=== PATIENT | male | born 1960 | race Caucasian/White ===

== ENCOUNTER 2017-07-08 19:02 | Emergency (ER) | payer MEDICAID ==
[~2017-07-08] VITALS: Ht 172.7 cm; Wt 85.0 kg
[~2017-07-08 19:02] MED LIST: [UNRECOGNIZED DRUG - REMARK]
[2017-07-08] MEDS ORDERED: TETanus/Pertussis (Acell)/Diphther VAC/PF (Tdap-Adult) 0.5ml syringe IM ONE (19:55)
[2017-07-08] MEDS ORDERED: LIDOcaine 1.5% w/epinephrine 1:200,000 5ml ampul IJ ONE (19:55)
[2017-07-08] MEDS ORDERED: BACDS PO (20:30)
[2017-07-08] MEDS ORDERED: HYDR-569 PO (20:30)
[2017-07-08 20:39] VITALS: BP 140/80
== END 2017-07-08 20:41 | disposition home or self-care (01) ==
LOC: ER 19:03
DX: L02.31 Cutaneous abscess of buttock (principal); L03.317 Cellulitis of buttock; E78.00 Pure hypercholesterolemia, unspecified; M19.90 Unspecified osteoarthritis, unspecified site; Z79.899 Other long term (current) drug therapy
CPT/HCPCS: 10060; 90471; 90715; 99283; A6255; A6449; J3490

== ENCOUNTER 2017-09-05 17:13 | Emergency (ER) | payer MEDICAID ==
[~2017-09-05] VITALS: Ht 172.7 cm; Wt 83.6 kg
[~2017-09-05 17:13] MED LIST changes: +HYDR-569 PO
[2017-09-05 17:21] VITALS: BP 140/94
[2017-09-05] MEDS ORDERED: CEPH500C5 PO (19:04)
[2017-09-05] MEDS ORDERED: SULF1TAB49 PO (19:04)
[2017-09-05] MEDS ORDERED: ibuprofen tablet 400 MG TABLET PO ONE (19:25)
== END 2017-09-05 19:32 | disposition home or self-care (01) ==
LOC: ER 17:13
DX: L03.317 Cellulitis of buttock (principal); F17.200 Nicotine dependence, unspecified, uncomplicated; I10 Essential (primary) hypertension; I25.10 Atherosclerotic heart disease of native coronary artery without angina pectoris; E78.00 Pure hypercholesterolemia, unspecified; I25.2 Old myocardial infarction; M19.90 Unspecified osteoarthritis, unspecified site; Z98.61 Coronary angioplasty status; Z79.899 Other long term (current) drug therapy
CPT/HCPCS: 99283

== ENCOUNTER 2018-10-22 14:35 | Emergency (ER) | payer MEDICAID ==
[~2018-10-22] VITALS: Ht 172.7 cm; Wt 78.5 kg
[~2018-10-22 14:35] MED LIST changes: +HYDR-4383 PO; -HYDR-569 PO
[2018-10-22 18:03] VITALS: BP 146/85
--- NOTE | 2018-10-22 18:23 | NUR ---
Verbal SBAR report given to MURPHY Hernandez. Report acknowledged and questions answered. Care of the patient transferred.
[2018-10-22] MEDS ORDERED: naproxen 500mg tablet PO ONE (18:45)
[2018-10-22] MEDS ORDERED: NAPR-56 PO (18:46)
[2018-10-22 19:19] LABS: BASOPHILS # (AUTO) 0.1 X10'3 (0-0.2); BASOPHILS % (AUTO) 0.7 % (0-1); EOSINOPHILS # (AUTO) 0.1 X10'3 (0-0.9); EOSINOPHILS % (AUTO) 1.5 % (0-6); HEMATOCRIT 43.8 % (42.0-52.0); HEMOGLOBIN 14.7 g/dl (14.0-17.9); LYMPHOCYTES # (AUTO) 3.1 X10'3 (1.1-4.8); LYMPHOCYTES % (AUTO) 31.9 % (21-51); MEAN CORPUSCULAR HEMOGLOBIN 32.3 PG (27.0-31.0); MEAN CORPUSCULAR HGB CONC 33.6 g/dL (33.0-36.5); MEAN PLATELET VOLUME 8.5 FL (7.4-10.4); MONOCYTES # (AUTO) 0.8 X10'3 (0-0.9); MONOCYTES % (AUTO) 8.7 % (2-12); NEUTROPHILS # (AUTO) 5.5 X10'3 (1.8-7.7); NEUTROPHILS % (AUTO) 57.2 % (42-75); PLATELET COUNT 171 X10'3 (140-440); RED BLOOD COUNT 4.56 X10'6 (4.70-6.10); RED CELL DISTRIBUTION WIDTH 14.2 % (11.5-14.5); WHITE BLOOD COUNT 9.6 X10'3 (4.5-11.0)
[2018-10-22 19:35] LABS: ALANINE AMINOTRANSFERASE 52 U/L (12-78); ALBUMIN 3.5 G/DL (3.4-5.0); ALBUMIN/GLOBULIN RATIO 0.9 (1.1-1.5); ALKALINE PHOSPHATASE 40 IU/L (46-116); ANION GAP 6 (8-16); ASPARTATE AMINO TRANSFERASE 28 U/L (10-37); BILIRUBIN,TOTAL 0.2 MG/DL (0.1-1.0); BLOOD UREA NITROGEN 12 MG/DL (7-18); CALCIUM 8.6 MG/DL (8.5-10.1); CHLORIDE 108 MMOL/L (99-107); CREATININE 1.09 MG/DL (0.60-1.10); GLUCOSE 88 MG/DL (70-104); POTASSIUM 4.5 MMOL/L (3.5-5.1); SODIUM 145 MMOL/L (135-145); TOTAL PROTEIN 7.2 G/DL (6.4-8.2); eGFR 69 ML/MIN
== END 2018-10-22 20:02 | disposition home or self-care (01) ==
LOC: ER 14:36
DX: M25.512 Pain in left shoulder (principal); I25.10 Atherosclerotic heart disease of native coronary artery without angina pectoris; E78.00 Pure hypercholesterolemia, unspecified; I10 Essential (primary) hypertension; I25.2 Old myocardial infarction; M19.90 Unspecified osteoarthritis, unspecified site; Z98.61 Coronary angioplasty status; Z86.69 Personal history of other diseases of the nervous system and sense organs; Z79.899 Other long term (current) drug therapy; W22.8XXA Striking against or struck by other objects, initial encounter; Y93.89 Activity, other specified; Y92.89 Other specified places as the place of occurrence of the external cause; Y99.8 Other external cause status
CPT/HCPCS: 36415; 73030; 80053; 84484; 85025; 85610; 93005; 99284

== ENCOUNTER 2019-02-06 12:24 | Emergency (ER) | payer MEDICAID ==
[~2019-02-06] VITALS: Ht 172.7 cm; Wt 79.0 kg
[2019-02-06] MEDS ORDERED: BACDS PO (13:37)
[2019-02-06] MEDS ORDERED: LIDOcaine 1% W/epiNEPHrine 1:100,000 20ml vial ONE (14:00)
[2019-02-06 15:07] VITALS: BP 143/89
== END 2019-02-06 14:55 | disposition home or self-care (01) ==
LOC: ER 12:24
DX: L02.214 Cutaneous abscess of groin (principal); I25.10 Atherosclerotic heart disease of native coronary artery without angina pectoris; E78.00 Pure hypercholesterolemia, unspecified; I10 Essential (primary) hypertension; I25.2 Old myocardial infarction; M19.90 Unspecified osteoarthritis, unspecified site; Z86.69 Personal history of other diseases of the nervous system and sense organs; Z98.61 Coronary angioplasty status; Z79.899 Other long term (current) drug therapy
CPT/HCPCS: 10060; 99283

== ENCOUNTER 2020-05-15 12:33 | Emergency (ER) | payer MEDICAID ==
[~2020-05-15] VITALS: Ht 172.7 cm; Wt 65.9 kg
[2020-05-15 15:24] LABS: BASOPHILS % (AUTO) 0.2 % (0-1); EOSINOPHILS # (AUTO) 0.1 X10'3 (0-0.9); EOSINOPHILS % (AUTO) 0.5 % (0-6); HEMATOCRIT 42.6 % (42.0-52.0); HEMOGLOBIN 14.3 g/dl (14.0-17.9); LYMPHOCYTES # (AUTO) 1.2 X10'3 (1.1-4.8); LYMPHOCYTES % (AUTO) 11.3 % (21-51); MEAN CORPUSCULAR HEMOGLOBIN 31.8 PG (27.0-31.0); MEAN CORPUSCULAR HGB CONC 33.4 g/dL (33.0-36.5); MEAN PLATELET VOLUME 8.9 FL (7.4-10.4); MONOCYTES # (AUTO) 0.9 X10'3 (0-0.9); MONOCYTES % (AUTO) 8.5 % (2-12); NEUTROPHILS # (AUTO) 8.7 X10'3 (1.8-7.7); NEUTROPHILS % (AUTO) 79.5 % (42-75); PLATELET COUNT 172 X10'3 (140-440); RED BLOOD COUNT 4.49 X10'6 (4.70-6.10); RED CELL DISTRIBUTION WIDTH 14.9 % (11.5-14.5); WHITE BLOOD COUNT 10.9 X10'3 (4.5-11.0)
[2020-05-15 15:40] LABS: ALANINE AMINOTRANSFERASE 17 U/L (12-78); ALBUMIN 2.5 G/DL (3.4-5.0); ALBUMIN/GLOBULIN RATIO 0.6 (1.1-1.5); ALKALINE PHOSPHATASE 78 IU/L (46-116); ANION GAP 7 (8-16); ASPARTATE AMINO TRANSFERASE 16 U/L (10-37); BILIRUBIN,TOTAL 0.9 MG/DL (0.1-1.0); BLOOD UREA NITROGEN 7 MG/DL (7-18); BUN/CREATININE RATIO 8.4 (5.4-32.0); CALCIUM 8.7 MG/DL (8.5-10.1); CHLORIDE 99 MMOL/L (99-107); CREATININE 0.83 MG/DL (0.60-1.10); GLUCOSE 105 MG/DL (70-104); POTASSIUM 3.9 MMOL/L (3.5-5.1); SODIUM 137 MMOL/L (135-145); TOTAL CARBON DIOXIDE 31.4 MMOL/L (24-32); TOTAL PROTEIN 6.8 G/DL (6.4-8.2); eGFR > 90 ML/MIN
[2020-05-15] MEDS ORDERED: CEPH250T PO (15:50)
[2020-05-15] MEDS ORDERED: HYDR-3965 PO (15:50)
[2020-05-15] MEDS ORDERED: HYDROcodone/acetaminophen 10/325mg tab PO ONE (15:50)
[2020-05-15 16:51] VITALS: BP 159/85
[2020-05-22] MEDS ORDERED: CEPH250C PO (09:39)
[2020-05-22] MEDS ORDERED: HYDR-3964 PO (09:39)
== END 2020-05-15 16:52 | disposition home or self-care (01) ==
LOC: ER 12:35
DX: R10.2 Pelvic and perineal pain (principal); G40.909 Epilepsy, unspecified, not intractable, without status epilepticus; I25.10 Atherosclerotic heart disease of native coronary artery without angina pectoris; E78.00 Pure hypercholesterolemia, unspecified; I10 Essential (primary) hypertension; I25.2 Old myocardial infarction; M19.90 Unspecified osteoarthritis, unspecified site; Z79.899 Other long term (current) drug therapy; Z91.030 Bee allergy status
CPT/HCPCS: 36415; 70450; 72192; 80053; 85025; 99285

== ENCOUNTER 2020-05-23 13:10 | Day surgery (SDC) | payer MEDICAID ==
[2020-05-23] VITALS (8 sets, daily range): BP systolic 143–168; BP diastolic 79–99
[~2020-05-23] VITALS: Ht 172.7 cm; Wt 72.0 kg
[~2020-05-23 13:10] MED LIST changes: +CEPH250C PO; +HYDR-3964 PO; -HYDR-4383 PO; -[UNRECOGNIZED DRUG - REMARK]; +albuterol 2.5 MG/3 ML nebule NEB ONE; +cefazolin/dext.iso 2gm/100ml 100 ML IV ONE; +famotidine 20mg tablet PO ONE; +ringers solution, lacted 1,000 ML IV SCH
[2020-05-23] MEDS ORDERED: morphine 4 MG/ML inj SYRINge IV PRN ×2 (14:25→16:55)
[2020-05-23] MEDS ORDERED: meperidine/PF 25mg/ml syringe IV PRN (16:55)
[2020-05-23] MEDS ORDERED: ringers solution, lacted 1,000 ML IV SCH (16:55)
[2020-05-23] MEDS ORDERED: proCHLORperazine 10 MG/2 ml inj IV PRN (16:55)
[2020-05-23] MEDS ORDERED: morphine 2 MG/ML inj. syringe IV PRN (16:55)
[2020-05-23] MEDS ORDERED: labetalol 20mg/4ml (5mg/ml) syringe IV PRN (16:55)
[2020-05-23] MEDS ORDERED: hydrALAZINE 20mg/ml inj. IV PRN (16:55)
[2020-05-23] MEDS ORDERED: acetaminophen 1,000mg/100ml IV 100 ML IV PRN (16:55)
[2020-05-23] MEDS ORDERED: HYDROmorphone/PF 0.2 MG/ML SYRINGE IV PRN ×2 (16:55)
[2020-05-23] MEDS ORDERED: ondansetron/PF 4mg/2ml inj IV PRN (16:55)
[2020-05-23] MEDS ORDERED: fentaNYL/PF 50MCG/1 ML 2ML syringe ONE (17:31)
[2020-05-23] MEDS ORDERED: midazolam 1 mg/ML 2ml injection ONE (17:33)
[2020-05-23] MEDS ORDERED: ePHEDrine 50MG/ML INJ. ONE (17:34)
[2020-05-23] MEDS ORDERED: sevoflurane 250ml liquid IH ONE (17:34)
[2020-05-23] MEDS ORDERED: LIDOcaine 2% 5ml jelly ONE (17:39)
[2020-05-23] MEDS ORDERED: rocuronium 10mg/ml inj IV ONE (17:52)
[2020-05-23] MEDS ORDERED: ondansetron/PF 4mg/2ml inj ONE (17:52)
[2020-05-23] MEDS ORDERED: LIDOcaine 2% (20mg/ml) 5ml vial ONE (17:52)
[2020-05-23] MEDS ORDERED: propofol inj 20 ML IV ONE (17:52)
[2020-05-23] MEDS ORDERED: dexamethasone sod phosphate 4mg/ml inj. ONE (17:53)
[2020-05-23] MEDS ORDERED: albumin (Human) 5% 250ml 250 ML IV ONE (18:28)
[2020-05-23] MEDS ORDERED: silver sulfadiazine cream 50gm TP SCH (18:39)
[2020-05-23] MEDS ORDERED: silver sulfadiazine cream 400gm jar TP SCH (18:41)
[2020-05-23] MEDS ORDERED: morphine 10mg/ml inj. ONE (18:51)
--- NOTE | 2020-05-23 18:55 | NUR ---
Received from OR via [place], accompanied by Anesthesiologist and report given by Anesthesiologist. PATIENT WAKING UP, NO S/S OF PAIN, V/S WNL, SCD ON, 20G TO RUE, SILVADENE CREAM ABD PADS AND MESH PANTIES TO BUTTOCKS WITH NO ACTIVE DRAINAGE.
--- NOTE | 2020-05-23 19:55 | NUR ---
PATIENT A&OX4, DENIES PAIN, V/S WNL, SCD OFF, 20G TO RUE D/C, SILVADENE CREAM ABD PADS AND MESH PANTIES TO BUTTOCKS WITH NO ACTIVE DRAINAGE.I HAVE REVIEWED D/C ORDERS WITH PATIENT AND HIS FRIEND AND THEY HAVE VERBALIZED UNDERSTANDING. PATIENT D/C HOME WITH ALL BELONGINGS AND FRIEND GAVE TRANSPORT.
== END 2020-05-23 19:55 | disposition home or self-care (01) ==
LOC: PAS 13:10
PROVIDERS: ATTEND Surgery
DX: T21.35XA Burn of third degree of buttock, initial encounter (principal); T31.0 Burns involving less than 10% of body surface; X03.3XXA Fall due to controlled fire, not in building or structure, initial encounter; Y93.89 Activity, other specified; Y92.89 Other specified places as the place of occurrence of the external cause; Y99.8 Other external cause status
CPT/HCPCS: 16025; 36415; 82948; 87426; J1100; J2001; J2250; J2270; J2405; J2704; J3010; J7120; P9045; A4618; A6253

== ENCOUNTER 2020-07-12 09:46 | Emergency (ER) | payer MEDICAID ==
[~2020-07-12] VITALS: Ht 172.7 cm; Wt 63.6 kg
[~2020-07-12 09:46] MED LIST changes: -CEPH250C PO; -HYDR-3964 PO; +NO HOME MEDS; -albuterol 2.5 MG/3 ML nebule NEB ONE; -cefazolin/dext.iso 2gm/100ml 100 ML IV ONE; -famotidine 20mg tablet PO ONE; -ringers solution, lacted 1,000 ML IV SCH
[2020-07-12 09:53] VITALS: BP 183/105
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
== END 2020-07-12 10:22 | disposition left against medical advice (07) ==
LOC: ER 09:46
DX: R42 Dizziness and giddiness (principal); R55 Syncope and collapse; I10 Essential (primary) hypertension; R07.89 Other chest pain; I25.10 Atherosclerotic heart disease of native coronary artery without angina pectoris; E78.00 Pure hypercholesterolemia, unspecified; I25.2 Old myocardial infarction; M19.90 Unspecified osteoarthritis, unspecified site; Z86.69 Personal history of other diseases of the nervous system and sense organs; Z98.890 Other specified postprocedural states; Z72.89 Other problems related to lifestyle; Z91.030 Bee allergy status
CPT/HCPCS: 99281

== ENCOUNTER 2020-08-31 00:29 | Emergency (ER) | payer MEDICAID ==
[~2020-08-31] VITALS: Ht 182.9 cm; Wt 80.0 kg
[2020-08-31] MEDS ORDERED: AMOX-580 PO (00:38)
[2020-08-31 00:52] VITALS: BP 127/66
== END 2020-08-31 01:05 ==
LOC: ER 00:30
DX: S71.112A Laceration without foreign body, left thigh, initial encounter (principal); S80.211A Abrasion, right knee, initial encounter; S80.212A Abrasion, left knee, initial encounter; I25.10 Atherosclerotic heart disease of native coronary artery without angina pectoris; E78.00 Pure hypercholesterolemia, unspecified; I10 Essential (primary) hypertension; I25.2 Old myocardial infarction; M19.90 Unspecified osteoarthritis, unspecified site; F17.210 Nicotine dependence, cigarettes, uncomplicated; Z86.69 Personal history of other diseases of the nervous system and sense organs; Z98.890 Other specified postprocedural states; Z72.89 Other problems related to lifestyle; Z91.030 Bee allergy status; Z79.2 Long term (current) use of antibiotics; W54.0XXA Bitten by dog, initial encounter; Y93.89 Activity, other specified; Y92.89 Other specified places as the place of occurrence of the external cause; Y99.8 Other external cause status
CPT/HCPCS: 12002; 99283

== ENCOUNTER 2021-01-12 12:59 | Inpatient (IN) | payer MEDICAID ==
[~2021-01-12] VITALS: Ht 170.2 cm; Wt 68.0 kg
[2021-01-12] MEDS ORDERED: ipratropium/albuterol 3ml nebule NEB ONE (15:15)
[2021-01-12] MEDS ORDERED: albuterol 2.5 MG/3 ML nebule NEB ONE (15:15)
[2021-01-12] MEDS ORDERED: methylPREDNISolone sod succ 125mg/2ml vial IV ONE (15:15)
[2021-01-12 15:58] LABS: BASOPHILS % (AUTO) 0.4 % (0-1); EOSINOPHILS % (AUTO) 0 % (0-6); HEMATOCRIT 29.8 % (42.0-52.0); HEMOGLOBIN 10.3 g/dl (14.0-17.9); LYMPHOCYTES # (AUTO) 0.6 X10'3 (1.1-4.8); MEAN CORPUSCULAR HGB CONC 34.8 g/dL (33.0-36.5); MEAN CORPUSCULAR VOLUME 89.2 FL (78-98); MEAN PLATELET VOLUME 9.2 FL (7.4-10.4); MONOCYTES # (AUTO) 0.5 X10'3 (0-0.9); MONOCYTES % (AUTO) 6.1 % (2-12); NEUTROPHILS # (AUTO) 6.6 X10'3 (1.8-7.7); NEUTROPHILS % (AUTO) 85.5 % (42-75); PLATELET COUNT 115 X10'3 (140-440); RED BLOOD COUNT 3.34 X10'6 (4.70-6.10); RED CELL DISTRIBUTION WIDTH 14.9 % (11.5-14.5); WHITE BLOOD COUNT 7.8 X10'3 (4.5-11.0)
[2021-01-12 15:59] LABS: ALANINE AMINOTRANSFERASE 19 U/L (12-78); ALBUMIN 2.3 G/DL (3.4-5.0); ALBUMIN/GLOBULIN RATIO 0.6 (1.1-1.5); ALKALINE PHOSPHATASE 35 IU/L (46-116); ANION GAP 4 (8-16); ASPARTATE AMINO TRANSFERASE 31 U/L (10-37); BILIRUBIN,TOTAL 0.9 MG/DL (0.1-1.0); BLOOD UREA NITROGEN 10 MG/DL (7-18); BUN/CREATININE RATIO 10.1 (5.4-32.0); CALCIUM 7.7 MG/DL (8.5-10.1); CHLORIDE 94 MMOL/L (99-107); CREATININE 0.99 MG/DL (0.60-1.10); GLUCOSE 97 MG/DL (70-104); POTASSIUM 3.7 MMOL/L (3.5-5.1); SODIUM 125 MMOL/L (135-145); TOTAL CARBON DIOXIDE 27.2 MMOL/L (24-32); TOTAL PROTEIN 6.2 G/DL (6.4-8.2); eGFR 77 ML/MIN
[2021-01-12] MEDS ORDERED: CefTRIAXone 2gm/D5W 50ml BAG 50 ML IV ONE (17:00)
[2021-01-12] MEDS ORDERED: REMDESIVIR INJ 200 MG in normal saline 100ml IV soln 100 ML IV ONE (17:00)
[2021-01-12] MEDS ORDERED: acetaminophen 325mg tablet PO STA (17:05)
[2021-01-12] MEDS ORDERED: magnesium 4gm in 100ml NS 100 ML IV PRN (18:10)
[2021-01-12] MEDS ORDERED: magnesium 2GM in 50ml NS 50 ML IV PRN (18:10)
[2021-01-12] MEDS ORDERED: potassium Cl 20 mEq SR tablet PO PRN ×2 (18:10)
[2021-01-12] MEDS ORDERED: potassium CL 10mEq/100ml bag 100 ML IV PRN (18:10)
[2021-01-12] MEDS ORDERED: acetaminophen 325mg tablet PO PRN (18:10)
[2021-01-12] MEDS ORDERED: ondansetron/PF 4mg/2ml inj IV PRN (18:10)
[2021-01-12] MEDS ORDERED: ipratropium/albuterol 3ml nebule NEB PRN ×2 (18:10)
[2021-01-12] MEDS ORDERED: magnesium Cl slow-release 64mg tablet PO PRN (18:10)
[2021-01-12] MEDS ORDERED: PERFLUTREN PROTEIN-A MICROSPHR (Optison) 0.22 MG/ML 3ML VIAL IV PRN (18:10)
[2021-01-12] MEDS ORDERED: REMDESIVIR INJ 100 MG in normal saline 100ml IV soln 100 ML IV SCH (18:10)
[2021-01-12] MEDS ORDERED: morphine 2 MG/ML inj. syringe IV PRN (18:10)
[2021-01-12] MEDS ORDERED: BUSP10TA3 PO (18:28)
[2021-01-12] MEDS ORDERED: METO25TA6 PO (18:28)
[2021-01-12] MEDS ORDERED: MONT-40 PO (18:28)
[2021-01-12] MEDS ORDERED: LISI5TAB22 PO (18:28)
[2021-01-12] MEDS ORDERED: SIMV-42 PO (18:28)
[2021-01-12] MEDS ORDERED: VENL37.589 PO (18:28)
[2021-01-12] MEDS ORDERED: CefTRIAXone/D5W-Rocephin 1gm 50 ML IV SCH (19:15)
[2021-01-12] MEDS: K and/or MAG REPLACEMENT MC SCH (19:59)
[2021-01-12] MEDS: docusate sod 100mg capsule PO SCH ×2 (20:00→20:40)
[2021-01-12] MEDS: metoprolol tartrate 25mg tablet PO SCH (20:40)
[2021-01-12] MEDS: atorvastatin 10mg tablet PO SCH (20:40)
[2021-01-12] MEDS: busPIRone 5mg tablet PO SCH (20:40)
[2021-01-12] MEDS: normal saline 1000ml 1,000 ML IV SCH (20:41)
[2021-01-12] MEDS: heparin, porcine 5000 units/ml vial SQ SCH (20:47)
[2021-01-12] MEDS: dexamethasone 4mg/ml inj IM SCH (20:48)
--- NOTE | 2021-01-12 21:20 | NUR ---
Received pt from ER via [facility] to bed maite well, gait steady. Oriented to room and routine, on r/a sat 93%. Addendum: 01/12/21 at 2208 by Lv Bellamy RN Amended: Links added.
[2021-01-12 21:45] VITALS: BP 96/50
--- NOTE | 2021-01-12 21:45 | NUR ---
pt has not voided at this time, states voided earlier today and normally goes twice a day or more. Addendum: 01/12/21 at 2229 by Lv Bellamy RN Amended: Links added.
--- NOTE | 2021-01-12 22:57 | NUR ---
troponin only ordered x1. Addendum: 01/12/21 at 2257 by Lv Bellamy RN Amended: Links added.
[2021-01-13] VITALS (7 sets, daily range): BP systolic 108–130; BP diastolic 63–77
[2021-01-13 01:30] LABS: CLARITY,URINE CLEAR (Clear); COLOR,URINE YELLOW (Yellow); GLUCOSE, URINE NEGATIVE (Neg); KETONES,URINE NEGATIVE (Neg); LEUKOCYTE ESTERASE ,URINE NEGATIVE (Neg); NITRITES, URINE NEGATIVE (Neg); OCCULT BLOOD,URINE NEGATIVE (Neg); PROTEIN,URINE TRACE mg/dl (Neg)
[2021-01-13 01:33] LABS: UA COLLECTION TYPE VOIDED
[2021-01-13 01:40] LABS: BACTERIA,URINE NONE SEEN /HPF (Neg); MUCUS STRANDS MANY /LPF (Neg); RBC,URINE 0-2 /HPF (0-2); SQUAMOUS EPITHELIAL CELL,UR FEW /LPF (FEW); WBC,URINE 0-4 /HPF (0-4)
[2021-01-13 01:41] LABS: HYALINE CASTS 0-3 /LPF (NEGATIVE); SPERM FEW /HPF (NEGATIVE)
[2021-01-13] MEDS: normal saline 1000ml 1,000 ML IV SCH ×2 (04:10→14:16)
--- NOTE | 2021-01-13 04:43 | NUR ---
No complaints, labs drawn. Addendum: 01/13/21 at 0443 by Lv Bellamy RN Amended: Links added.
--- NOTE | 2021-01-13 06:07 | NUR ---
Problems reprioritized. Patient report given, questions answered & plan of care reviewed with RN. Addendum: 01/13/21 at 0608 by Lv Bellamy RN Amended: Links added.
--- NOTE | 2021-01-13 06:10 | NUR ---
received report from william sawant
[2021-01-13] MEDS: REMDESIVIR 100 MG in NS 100ml IVPB IV SCH (06:30)
[2021-01-13 06:37] LABS: BASOPHILS % (AUTO) 0.1 % (0-1); EOSINOPHILS % (AUTO) 0 % (0-6); HEMATOCRIT 34.2 % (42.0-52.0); HEMOGLOBIN 11.4 g/dl (14.0-17.9); LYMPHOCYTES # (AUTO) 0.3 X10'3 (1.1-4.8); LYMPHOCYTES % (AUTO) 6.4 % (21-51); MEAN CORPUSCULAR HEMOGLOBIN 30.8 PG (27.0-31.0); MEAN CORPUSCULAR HGB CONC 33.5 g/dL (33.0-36.5); MEAN PLATELET VOLUME 9.9 FL (7.4-10.4); MONOCYTES # (AUTO) 0.2 X10'3 (0-0.9); MONOCYTES % (AUTO) 3.8 % (2-12); NEUTROPHILS # (AUTO) 4.3 X10'3 (1.8-7.7); NEUTROPHILS % (AUTO) 89.7 % (42-75); PLATELET COUNT 128 X10'3 (140-440); RED BLOOD COUNT 3.71 X10'6 (4.70-6.10); RED CELL DISTRIBUTION WIDTH 15.3 % (11.5-14.5); WHITE BLOOD COUNT 4.8 X10'3 (4.5-11.0)
[2021-01-13 06:59] LABS: % IRON SATURATION 14 % (11-46); ALBUMIN 2.2 G/DL (3.4-5.0); ANION GAP 7 (8-16); BLOOD UREA NITROGEN 17 MG/DL (7-18); BUN/CREATININE RATIO 16.8 (5.4-32.0); CHLORIDE 99 MMOL/L (99-107); CREATININE 1.01 MG/DL (0.60-1.10); GLUCOSE 166 MG/DL (70-104); IRON 21 UG/DL (53-167); MAGNESIUM 2.6 MG/DL (1.5-2.4); POTASSIUM 4.1 MMOL/L (3.5-5.1); SODIUM 133 MMOL/L (135-145); TOTAL CARBON DIOXIDE 26.6 MMOL/L (24-32); TOTAL IRON BINDING CAPACITY 147 UG/DL (259-388); eGFR 75 ML/MIN
[2021-01-13] MEDS: lisinopril 5mg tablet PO SCH (07:11)
[2021-01-13] MEDS: busPIRone 5mg tablet PO SCH ×2 (07:12→20:18)
[2021-01-13] MEDS: docusate sod 100mg capsule PO SCH ×2 (07:12→20:18)
[2021-01-13] MEDS: montelukast 10mg tablet PO SCH (07:12)
[2021-01-13] MEDS: metoprolol tartrate 25mg tablet PO SCH ×2 (07:12→20:18)
[2021-01-13] MEDS: heparin, porcine 5000 units/ml vial SQ SCH ×2 (07:13→20:18)
[2021-01-13] MEDS: dexamethasone 4mg/ml inj IM SCH (07:14)
[2021-01-13] MEDS: CefTRIAXone/D5W-Rocephin 1gm 50 ML IV SCH (07:15)
[2021-01-13] MEDS: K and/or MAG REPLACEMENT MC SCH ×2 (07:20→20:00)
[2021-01-13] MEDS: venlafaxine XR 37.5mg cap (Q24H) PO SCH (07:20)
[2021-01-13] MEDS: dexamethasone 4mg/ml inj IV SCH ×2 (07:20→20:19)
[2021-01-13] MEDS: azithromycin/NS 500mg/250ml 250 ML IV SCH (08:19)
[2021-01-13] MEDS ORDERED: pneumococcal 23-VAL P-sac vacc 25 mcg/0.5ml vial IMVAC ONE (10:00)
--- NOTE | 2021-01-13 18:18 | NUR ---
gave report to may,
[2021-01-13] MEDS: atorvastatin 10mg tablet PO SCH (20:18)
[2021-01-13] MEDS: lactobacillus rhamnosus 10,000 MMU CELLS/CAPSULE PO SCH (20:19)
[2021-01-14] MEDS: normal saline 1000ml 1,000 ML IV SCH ×3 (00:10→20:46)
[2021-01-14 02:00] VITALS: BP 127/61
[2021-01-14 05:47] VITALS: BP 132/66
[2021-01-14] MEDS: CefTRIAXone/D5W-Rocephin 1gm 50 ML IV SCH (07:14)
[2021-01-14 07:44] LABS: BASOPHILS % (AUTO) 0.1 % (0-1); EOSINOPHILS % (AUTO) 0 % (0-6); HEMOGLOBIN 10.3 g/dl (14.0-17.9); LYMPHOCYTES # (AUTO) 0.3 X10'3 (1.1-4.8); LYMPHOCYTES % (AUTO) 3.9 % (21-51); MEAN CORPUSCULAR HEMOGLOBIN 31.2 PG (27.0-31.0); MEAN CORPUSCULAR HGB CONC 34.3 g/dL (33.0-36.5); MEAN CORPUSCULAR VOLUME 90.9 FL (78-98); MEAN PLATELET VOLUME 10.1 FL (7.4-10.4); MONOCYTES # (AUTO) 0.6 X10'3 (0-0.9); MONOCYTES % (AUTO) 6.9 % (2-12); NEUTROPHILS # (AUTO) 7.7 X10'3 (1.8-7.7); NEUTROPHILS % (AUTO) 89.1 % (42-75); PLATELET COUNT 130 X10'3 (140-440); RED CELL DISTRIBUTION WIDTH 15.1 % (11.5-14.5); WHITE BLOOD COUNT 8.6 X10'3 (4.5-11.0)
[2021-01-14] MEDS: metoprolol tartrate 25mg tablet PO SCH ×2 (07:57→19:59)
[2021-01-14] MEDS: azithromycin/NS 500mg/250ml 250 ML IV SCH (07:58)
[2021-01-14] MEDS: venlafaxine XR 37.5mg cap (Q24H) PO SCH (07:58)
[2021-01-14] MEDS: montelukast 10mg tablet PO SCH (07:58)
[2021-01-14] MEDS: REMDESIVIR 100 MG in NS 100ml IVPB IV SCH (07:58)
[2021-01-14] MEDS: docusate sod 100mg capsule PO SCH ×2 (07:58→20:03)
[2021-01-14] MEDS: busPIRone 5mg tablet PO SCH ×2 (07:58→20:01)
[2021-01-14] MEDS: lactobacillus rhamnosus 10,000 MMU CELLS/CAPSULE PO SCH ×2 (07:58→20:00)
[2021-01-14] MEDS: lisinopril 5mg tablet PO SCH (07:58)
[2021-01-14] MEDS: dexamethasone 4mg/ml inj IV SCH ×2 (07:59→20:01)
[2021-01-14] MEDS: heparin, porcine 5000 units/ml vial SQ SCH ×2 (07:59→20:01)
[2021-01-14] MEDS: K and/or MAG REPLACEMENT MC SCH ×2 (08:00→20:00)
[2021-01-14 08:01] LABS: ALBUMIN 1.9 G/DL (3.4-5.0); ANION GAP 7 (8-16); BLOOD UREA NITROGEN 29 MG/DL (7-18); BUN/CREATININE RATIO 32.6 (5.4-32.0); CALCIUM 7.6 MG/DL (8.5-10.1); CHLORIDE 104 MMOL/L (99-107); CREATININE 0.89 MG/DL (0.60-1.10); GLUCOSE 148 MG/DL (70-104); MAGNESIUM 2.3 MG/DL (1.5-2.4); POTASSIUM 4.3 MMOL/L (3.5-5.1); SODIUM 137 MMOL/L (135-145); TOTAL CARBON DIOXIDE 25.6 MMOL/L (24-32); eGFR 87 ML/MIN
[2021-01-14 10:00] VITALS: BP 119/67
[2021-01-14 13:36] VITALS: BP 117/60
--- NOTE | 2021-01-14 16:29 | NUR ---
Patient states ALANNAH Gresham told him he has a room for a couple of days to recover from covid. It will be available tomorrow.
[2021-01-14 18:00] VITALS: BP 137/73
[2021-01-14] MEDS: atorvastatin 10mg tablet PO SCH (20:01)
[2021-01-14 22:00] VITALS: BP 124/68
[2021-01-15 02:00] VITALS: BP 129/62
[2021-01-15 04:21] LABS: OCCULT BLOOD STOOL NEGATIVE (Neg)
[2021-01-15 06:00] VITALS: BP 135/76
--- NOTE | 2021-01-15 06:33 | NUR ---
Patient in room ORTHO 4022B. I have received report from Jaqueline RN & Dori RN and had the opportunity to ask questions and assume patient care.
[2021-01-15] MEDS: lactobacillus rhamnosus 10,000 MMU CELLS/CAPSULE PO SCH (07:27)
[2021-01-15] MEDS: lisinopril 5mg tablet PO SCH (07:28)
[2021-01-15] MEDS: montelukast 10mg tablet PO SCH (07:28)
[2021-01-15] MEDS: busPIRone 5mg tablet PO SCH (07:29)
[2021-01-15] MEDS: metoprolol tartrate 25mg tablet PO SCH (07:29)
[2021-01-15] MEDS: docusate sod 100mg capsule PO SCH (07:29)
[2021-01-15] MEDS: venlafaxine XR 37.5mg cap (Q24H) PO SCH (07:30)
[2021-01-15] MEDS: heparin, porcine 5000 units/ml vial SQ SCH (07:33)
[2021-01-15] MEDS: dexamethasone 4mg/ml inj IV SCH (07:34)
[2021-01-15] MEDS: CefTRIAXone/D5W-Rocephin 1gm 50 ML IV SCH (07:37)
[2021-01-15] MEDS: K and/or MAG REPLACEMENT MC SCH (08:00)
[2021-01-15] MEDS: normal saline 1000ml 1,000 ML IV SCH (08:21)
[2021-01-15 08:23] LABS: BASOPHILS % (AUTO) 0.1 % (0-1); EOSINOPHILS % (AUTO) 0 % (0-6); HEMATOCRIT 32.6 % (42.0-52.0); LYMPHOCYTES # (AUTO) 0.4 X10'3 (1.1-4.8); LYMPHOCYTES % (AUTO) 4.5 % (21-51); MEAN CORPUSCULAR HEMOGLOBIN 30.8 PG (27.0-31.0); MEAN CORPUSCULAR HGB CONC 33.9 g/dL (33.0-36.5); MEAN CORPUSCULAR VOLUME 90.8 FL (78-98); MEAN PLATELET VOLUME 10.8 FL (7.4-10.4); MONOCYTES # (AUTO) 0.8 X10'3 (0-0.9); MONOCYTES % (AUTO) 8.5 % (2-12); NEUTROPHILS # (AUTO) 8.4 X10'3 (1.8-7.7); NEUTROPHILS % (AUTO) 86.9 % (42-75); PLATELET COUNT 150 X10'3 (140-440); RED BLOOD COUNT 3.59 X10'6 (4.70-6.10); RED CELL DISTRIBUTION WIDTH 15.2 % (11.5-14.5); WHITE BLOOD COUNT 9.7 X10'3 (4.5-11.0)
[2021-01-15] MEDS: azithromycin/NS 500mg/250ml 250 ML IV SCH (08:24)
[2021-01-15 08:32] LABS: ALBUMIN 1.9 G/DL (3.4-5.0); ANION GAP 5 (8-16); BLOOD UREA NITROGEN 26 MG/DL (7-18); CALCIUM 7.6 MG/DL (8.5-10.1); CHLORIDE 103 MMOL/L (99-107); CREATININE 0.93 MG/DL (0.60-1.10); GLUCOSE 141 MG/DL (70-104); POTASSIUM 4.2 MMOL/L (3.5-5.1); SODIUM 133 MMOL/L (135-145); TOTAL CARBON DIOXIDE 24.9 MMOL/L (24-32); eGFR 83 ML/MIN
[2021-01-15] MEDS: REMDESIVIR 100 MG in NS 100ml IVPB IV SCH (09:51)
[2021-01-15 09:53] VITALS: BP 135/85
[2021-01-15] MEDS ORDERED: ALBU8.5H17 INH (10:44)
[2021-01-15] MEDS ORDERED: DEC4T PO (10:44)
--- NOTE | 2021-01-15 13:58 | NUR ---
called into [facility] on [address]...2 prescriptions. Addendum: 01/15/21 at 1530 by Katerin Villa RN RX was e-scripted to [facility]. 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
--- NOTE | 2021-01-15 15:34 | NUR ---
DC INSTRUCTIONS GIVEN, QUESTIONS ANSWERED. IV REMOVED, CANULA INTACT, NO COMPLICATIONS, BANDAGE APPLIED. TELE MONITOR REMOVED. ASSISTED PT WITH DRESSING AND GATHERED BELONGINGS. PT WHEELED DOWN TO [facility] IN STABLE CONDITION.
[2021-01-16] MEDS ORDERED: azithromycin 250mg tablet PO SCH (08:00)
== END 2021-01-15 15:35 | disposition home or self-care (01) | DRG 137 ==
LOC: ER 12:59 → ED HOLD 18:17 → ORTHO 4S 21:19
PROVIDERS: ADMIT Internal Medicine; ATTEND Internal Medicine
PROC: XW033E5 Introduction of Remdesivir Anti-infective into Peripheral Vein, Percutaneous Approach, New Technology Group 5 (ICD-10-PCS; principal; 2021-01-12)
DX: U07.1 COVID-19 (principal); J96.01 Acute respiratory failure with hypoxia; J12.82 Pneumonia due to coronavirus disease 2019; E46 Unspecified protein-calorie malnutrition; E78.00 Pure hypercholesterolemia, unspecified; J44.0 Chronic obstructive pulmonary disease with (acute) lower respiratory infection; E87.1 Hypo-osmolality and hyponatremia; E78.5 Hyperlipidemia, unspecified; F32.A Depression, unspecified; M19.90 Unspecified osteoarthritis, unspecified site; D64.9 Anemia, unspecified; Z66 Do not resuscitate; F17.210 Nicotine dependence, cigarettes, uncomplicated; I10 Essential (primary) hypertension; J44.1 Chronic obstructive pulmonary disease with (acute) exacerbation; I25.10 Atherosclerotic heart disease of native coronary artery without angina pectoris; I25.2 Old myocardial infarction; Z59.00 Homelessness unspecified; Z79.899 Other long term (current) drug therapy; Z95.1 Presence of aortocoronary bypass graft; Z68.23 Body mass index [BMI] 23.0-23.9, adult; Z91.030 Bee allergy status
CPT/HCPCS: 36415; 71045; 80048; 80053; 81001; 82272; 83540; 83550; 83605; 83735; 83880; 84145; 84484; 85025; 87040; 87081; 87635; 93005; 93306; 94640; 94760; 96365; 96375; 99285; C9803; G0378; J0456; J0696; J1100; J1644; J2930; J3490; J7030

== ENCOUNTER 2021-08-04 04:40 | Inpatient (IN) | payer MEDICAID ==
[~2021-08-04] VITALS: Ht 172.7 cm; Wt 64.9 kg
[~2021-08-04 04:40] MED LIST changes: +ALBU8.5H17 INH; +BUSP10TA3 PO; +LISI5TAB22 PO; +METO25TA6 PO; -NO HOME MEDS; +SIMV-42 PO; +VENL37.589 PO
[2021-08-04] MEDS ORDERED: methylPREDNISolone sod succ 125mg/2ml vial IV ONE (05:05)
[2021-08-04 05:12] LABS: BASOPHILS # (AUTO) 0.1 X10'3 (0-0.2); BASOPHILS % (AUTO) 1.4 % (0-1); EOSINOPHILS # (AUTO) 0.1 X10'3 (0-0.9); EOSINOPHILS % (AUTO) 1.8 % (0-6); HEMATOCRIT 40.4 % (42.0-52.0); HEMOGLOBIN 13.2 g/dl (14.0-17.9); LYMPHOCYTES # (AUTO) 1.5 X10'3 (1.1-4.8); LYMPHOCYTES % (AUTO) 19.5 % (21-51); MEAN CORPUSCULAR HEMOGLOBIN 31.8 PG (27.0-31.0); MEAN CORPUSCULAR HGB CONC 32.8 g/dL (33.0-36.5); MEAN PLATELET VOLUME 8.9 FL (7.4-10.4); MONOCYTES # (AUTO) 0.6 X10'3 (0-0.9); MONOCYTES % (AUTO) 7.8 % (2-12); NEUTROPHILS # (AUTO) 5.4 X10'3 (1.8-7.7); NEUTROPHILS % (AUTO) 69.5 % (42-75); PLATELET COUNT 159 X10'3 (140-440); RED BLOOD COUNT 4.17 X10'6 (4.70-6.10); RED CELL DISTRIBUTION WIDTH 14.7 % (11.5-14.5); WHITE BLOOD COUNT 7.7 X10'3 (4.5-11.0)
[2021-08-04 05:16] LABS: ALANINE AMINOTRANSFERASE 27 U/L (12-78); ALBUMIN 2.6 G/DL (3.4-5.0); ALBUMIN/GLOBULIN RATIO 0.8 (1.1-1.5); ALKALINE PHOSPHATASE 66 IU/L (46-116); ANION GAP 8 (8-16); ASPARTATE AMINO TRANSFERASE 26 U/L (10-37); BILIRUBIN,TOTAL 0.4 MG/DL (0.1-1.0); BLOOD UREA NITROGEN 14 MG/DL (7-18); BUN/CREATININE RATIO 12.8 (5.4-32.0); CHLORIDE 109 MMOL/L (99-107); CREATININE 1.09 MG/DL (0.60-1.10); GLUCOSE 136 MG/DL (70-104); SODIUM 143 MMOL/L (135-145); TOTAL CARBON DIOXIDE 26.2 MMOL/L (24-32); TOTAL PROTEIN 5.8 G/DL (6.4-8.2); eGFR 69 ML/MIN
[2021-08-04] MEDS ORDERED: aspirin 81mg tab.chew PO ONE (05:30)
[2021-08-04] MEDS ORDERED: furosemide 10 MG/1 ML 10ml inj IV ONE (05:40)
[2021-08-04] MEDS ORDERED: heparin 10,000 units/1 ML INJ IV ONE ×2 (05:40→08:40)
[2021-08-04] MEDS ORDERED: heparin 25,000 UNIT/250ml bag 250 ML IV SCH ×2 (05:40→08:40)
[2021-08-04] MEDS ORDERED: metoprolol tartrate 1mg/ml inj IV ONE (05:45)
[2021-08-04 05:48] LABS: D-DIMER 2.08 MG/L FEU (0-0.50)
[2021-08-04] MEDS ORDERED: CefTRIAXone 2gm/NS 100ml IVPB 100 ML IV ONE (06:10)
[2021-08-04] MEDS ORDERED: iohexol 350MG/ML 100ml bottle IV ONE (06:12)
[2021-08-04 06:34] LABS: APTT 28 SECONDS (22-32)
[2021-08-04 07:13] LABS: URINE AMPHETAMINE SCREEN NEGATIVE (Neg); URINE BARBITUATE SCREEN NEGATIVE (Neg); URINE BENZODIAZEPINES SCREEN NEGATIVE (Neg); URINE CANNABINOID SCREEN POSITIVE (Neg); URINE COCAINE SCREEN NEGATIVE (Neg); URINE METHADONE SCREEN NEGATIVE (Neg); URINE OPIATE SCREEN NEGATIVE (Neg); URINE PHENCYCLIDINE SCREEN NEGATIVE (Neg)
[2021-08-04] MEDS ORDERED: ondansetron/PF 4mg/2ml inj IV PRN (08:40)
[2021-08-04] MEDS ORDERED: POTASSIUM BICARB 20meq eff tab 20 MEQ TABLET.EFF PO PRN ×2 (08:40)
[2021-08-04] MEDS ORDERED: albuterol 2.5 MG/3 ML nebule NEB PRN (08:40)
[2021-08-04] MEDS ORDERED: acetaminophen 325mg tablet PO PRN (08:40)
[2021-08-04] MEDS ORDERED: mag hydrox/Alum hydrox/simeth 30ml oral suspension PO PRN (08:40)
[2021-08-04] MEDS ORDERED: magnesium 4gm in 100ml NS 100 ML IV PRN (08:40)
[2021-08-04] MEDS ORDERED: PERFLUTREN PROTEIN-A MICROSPHR (Optison) 0.22 MG/ML 3ML VIAL IV ONE (08:40)
[2021-08-04] MEDS ORDERED: magnesium hydroxide 30ml (MOM) UD suspension PO PRN (08:40)
[2021-08-04] MEDS ORDERED: magnesium 2GM in 50ml NS 50 ML IV PRN (08:40)
[2021-08-04] MEDS: normal saline 1000ml 1,000 ML IV SCH ×2 (08:40→18:40)
[2021-08-04] MEDS ORDERED: heparin 10,000 units/1 ML INJ IV PRN (08:40)
[2021-08-04] MEDS ORDERED: potassium CL 10mEq/100ml bag 100 ML IV PRN (08:40)
[2021-08-04] MEDS: heparin 25,000 UNIT/250ml bag 250 ML IV SCH ×2 (10:34→14:06)
[2021-08-04 11:00] VITALS: BP 127/98
[2021-08-04] MEDS ORDERED: aminophylline 250mg/10ml inj. IV PRN (11:55)
[2021-08-04] MEDS ORDERED: nitroGLYCERIN 0.4mg SUBLingual tab SL PRN (11:55)
[2021-08-04] MEDS ORDERED: regadenoson 0.4mg/5ml syringe IV PRN (11:55)
[2021-08-04] MEDS ORDERED: metoprolol tartrate 1mg/ml inj IV PRN (11:55)
[2021-08-04] MEDS ORDERED: NO HOME MEDS (12:07)
[2021-08-04 12:41] LABS: C-REACTIVE PROTEIN 0.67 MG/DL (0.0-0.5)
[2021-08-04] MEDS: heparin 10,000 units/1 ML INJ IV PRN ×2 (13:56→21:33)
[2021-08-04] MEDS: ipratropium/albuterol 3ml nebule NEB PRN (16:06)
[2021-08-04] MEDS: piperacillin/tazo 4.5gm/100ml 100 ML IV SCH (16:51)
[2021-08-04] MEDS: atorvastatin 20mg tablet PO SCH (16:51)
[2021-08-04] MEDS: nitroGLYCERIN 0.4mg/hour patch TD SCH (16:51)
[2021-08-04] MEDS: nicotine 21mg patch - 24 hr TD SCH (16:52)
[2021-08-04 18:00] VITALS: BP 114/78
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
[2021-08-04 19:41] VITALS: BP 120/89
[2021-08-04] MEDS: K and/or MAG REPLACEMENT MC SCH (20:00)
[2021-08-04] MEDS: metoprolol tartrate 25mg tablet PO SCH (20:26)
[2021-08-04] MEDS: docusate sod 100mg capsule PO SCH (20:27)
[2021-08-04 22:00] VITALS: BP 116/81
--- NOTE | 2021-08-04 22:52 | NUR ---
PT Gume Armas who was admitted with the diagnosis of NSTEMI ,is complaining of intermittent tightness of the chest.
[2021-08-04] MEDS: nitroGLYCERIN 1gm ointment UD TP PRN (23:49)
[2021-08-05] VITALS (13 sets, daily range): BP systolic 114–140; BP diastolic 58–97
[2021-08-05] MEDS: piperacillin/tazo 4.5gm/100ml 100 ML IV SCH ×4 (00:34→23:31)
[2021-08-05] MEDS: heparin 25,000 UNIT/250ml bag 250 ML IV SCH (04:42)
[2021-08-05] MEDS: normal saline 1000ml 1,000 ML IV SCH (04:45)
[2021-08-05] MEDS: heparin 10,000 units/1 ML INJ IV PRN (05:24)
[2021-08-05 06:58] LABS: BASOPHILS % (AUTO) 0.4 % (0-1); EOSINOPHILS % (AUTO) 0.3 % (0-6); HEMATOCRIT 43.9 % (42.0-52.0); HEMOGLOBIN 14.2 g/dl (14.0-17.9); LYMPHOCYTES # (AUTO) 2.2 X10'3 (1.1-4.8); LYMPHOCYTES % (AUTO) 17.2 % (21-51); MEAN CORPUSCULAR HEMOGLOBIN 31.3 PG (27.0-31.0); MEAN CORPUSCULAR HGB CONC 32.4 g/dL (33.0-36.5); MEAN CORPUSCULAR VOLUME 96.5 FL (78-98); MEAN PLATELET VOLUME 10.3 FL (7.4-10.4); MONOCYTES # (AUTO) 0.8 X10'3 (0-0.9); MONOCYTES % (AUTO) 6.6 % (2-12); NEUTROPHILS # (AUTO) 9.6 X10'3 (1.8-7.7); NEUTROPHILS % (AUTO) 75.5 % (42-75); PLATELET COUNT 204 X10'3 (140-440); RED BLOOD COUNT 4.55 X10'6 (4.70-6.10); RED CELL DISTRIBUTION WIDTH 14.9 % (11.5-14.5); WHITE BLOOD COUNT 12.7 X10'3 (4.5-11.0)
--- NOTE | 2021-08-05 07:04 | NUR ---
Patient in room PCU 3020. I have received report from MURPHY CLARKE, and had the opportunity to ask questions and assume patient care.
--- NOTE | 2021-08-05 07:30 | NUR ---
PAGE SENT [id number], HILLARY KAUR REQUESTING A BREATHING TREATMENT. THANK YOU, SANDRA Warren [phone]
[2021-08-05 07:46] LABS: ALANINE AMINOTRANSFERASE 26 U/L (12-78); ALBUMIN 2.8 G/DL (3.4-5.0); ALBUMIN/GLOBULIN RATIO 0.8 (1.1-1.5); ALKALINE PHOSPHATASE 68 IU/L (46-116); ANION GAP 15 (8-16); ASPARTATE AMINO TRANSFERASE 25 U/L (10-37); BILIRUBIN,TOTAL 0.6 MG/DL (0.1-1.0); BLOOD UREA NITROGEN 25 MG/DL (7-18); BUN/CREATININE RATIO 21.7 (5.4-32.0); CALCIUM 8.6 MG/DL (8.5-10.1); CHLORIDE 106 MMOL/L (99-107); CHOL/HDL RATIO 2.4 (0.00-4.99); CHOLESTEROL 110 MG/DL (0-200); CREATININE 1.15 MG/DL (0.60-1.10); GLUCOSE 142 MG/DL (70-104); HDL CHOLESTEROL 46 MG/DL (35-60); LDL CHOLESTEROL 49 MG/DL (50-100); MAGNESIUM 2.1 MG/DL (1.5-2.4); POTASSIUM 4.6 MMOL/L (3.5-5.1); SODIUM 142 MMOL/L (135-145); TOTAL CARBON DIOXIDE 21.4 MMOL/L (24-32); TOTAL PROTEIN 6.5 G/DL (6.4-8.2); TRIGLYCERIDES 55 MG/DL (20-135); eGFR 65 ML/MIN
[2021-08-05] MEDS: K and/or MAG REPLACEMENT MC SCH ×2 (08:00→18:55)
--- NOTE | 2021-08-05 08:10 | NUR ---
Page Sent PAGER ID: [phone] MESSAGE: Opal0,NOLVIA CORRALES, PT'S BNP 1194, LAST TROPS 163. PT IS SCHEDULED FOR A FAINA SCAN THIS MORNING, DO YOU WANT TO PROCEED? THAN YOU, SANDRA X [phone]
[2021-08-05] MEDS: ipratropium/albuterol 3ml nebule NEB PRN (08:14)
--- NOTE | 2021-08-05 08:17 | NUR ---
PHONED TO NM TO REPORT PBNP AND TROPS, NM AWARE
[2021-08-05] MEDS: atorvastatin 20mg tablet PO SCH (08:18)
[2021-08-05] MEDS: docusate sod 100mg capsule PO SCH ×2 (08:18→19:42)
[2021-08-05] MEDS: metoprolol tartrate 25mg tablet PO SCH (08:19)
[2021-08-05] MEDS: lisinopril 5mg tablet PO SCH (08:19)
[2021-08-05] MEDS: nicotine 21mg patch - 24 hr TD SCH (08:20)
[2021-08-05] MEDS ORDERED: aminophylline 500mg/20ml vial ONE (09:01)
--- NOTE | 2021-08-05 11:39 | NUR ---
PAGE SENT PAGER ID: [phone] MESSAGE: Valerio, TANNER CORRALES, PROCEDURE RESULTS AVAILABLE IN [email or web address]. THANK YOU, SANDRA [phone]
[2021-08-05] MEDS: nitroGLYCERIN 0.4mg/hour patch TD SCH (12:45)
[2021-08-05] MEDS: ipratropium/albuterol 3ml nebule NEB SCH ×3 (15:59→23:16)
--- NOTE | 2021-08-05 18:47 | NUR ---
Problems reprioritized. Patient report given, questions answered & plan of care reviewed with MURPHY MCDOWELL.
[2021-08-05] MEDS: carvedilol 6.25mg tablet PO SCH (19:38)
[2021-08-05] MEDS: methylPREDNISolone sod succ 125mg/2ml vial IV SCH (19:38)
[2021-08-06] VITALS (8 sets, daily range): BP systolic 101–122; BP diastolic 65–92
[2021-08-06] MEDS: ipratropium/albuterol 3ml nebule NEB SCH ×4 (03:00→21:01)
[2021-08-06 06:00] LABS: MONOCYTES # (AUTO) 0.3 X10'3 (0-0.9)
[2021-08-06 06:03] LABS: BASOPHILS % (AUTO) 0.6 % (0-1); EOSINOPHILS % (AUTO) 0 % (0-6); HEMATOCRIT 44.6 % (42.0-52.0); HEMOGLOBIN 14.7 g/dl (14.0-17.9); LYMPHOCYTES # (AUTO) 0.8 X10'3 (1.1-4.8); LYMPHOCYTES % (AUTO) 11.1 % (21-51); MEAN CORPUSCULAR HEMOGLOBIN 31.8 PG (27.0-31.0); MEAN CORPUSCULAR VOLUME 96.4 FL (78-98); MEAN PLATELET VOLUME 9.7 FL (7.4-10.4); MONOCYTES % (AUTO) 3.6 % (2-12); NEUTROPHILS % (AUTO) 84.7 % (42-75); PLATELET COUNT 183 X10'3 (140-440); RED BLOOD COUNT 4.63 X10'6 (4.70-6.10); RED CELL DISTRIBUTION WIDTH 14.9 % (11.5-14.5)
--- NOTE | 2021-08-06 06:08 | NUR ---
Patient in room PCU 3020. I have received report from Leatha ARRINGTON and had the opportunity to ask questions and assume patient care.
[2021-08-06 06:30] LABS: ALANINE AMINOTRANSFERASE 24 U/L (12-78); ALBUMIN 2.5 G/DL (3.4-5.0); ALBUMIN/GLOBULIN RATIO 0.8 (1.1-1.5); ALKALINE PHOSPHATASE 58 IU/L (46-116); ANION GAP 11 (8-16); ASPARTATE AMINO TRANSFERASE 19 U/L (10-37); BILIRUBIN,TOTAL 0.6 MG/DL (0.1-1.0); BLOOD UREA NITROGEN 26 MG/DL (7-18); BUN/CREATININE RATIO 20.2 (5.4-32.0); CALCIUM 8.5 MG/DL (8.5-10.1); CHLORIDE 105 MMOL/L (99-107); CREATININE 1.29 MG/DL (0.60-1.10); GLUCOSE 139 MG/DL (70-104); MAGNESIUM 2.1 MG/DL (1.5-2.4); SODIUM 139 MMOL/L (135-145); TOTAL CARBON DIOXIDE 22.7 MMOL/L (24-32); TOTAL PROTEIN 5.7 G/DL (6.4-8.2); eGFR 57 ML/MIN
[2021-08-06] MEDS: K and/or MAG REPLACEMENT MC SCH ×2 (06:50→19:06)
[2021-08-06] MEDS: methylPREDNISolone sod succ 125mg/2ml vial IV SCH ×2 (07:24→19:05)
[2021-08-06] MEDS: piperacillin/tazo 4.5gm/100ml 100 ML IV SCH ×3 (07:27→23:27)
[2021-08-06] MEDS: docusate sod 100mg capsule PO SCH ×2 (07:27→19:06)
[2021-08-06] MEDS: carvedilol 6.25mg tablet PO SCH ×2 (07:28→19:05)
[2021-08-06] MEDS: atorvastatin 20mg tablet PO SCH (07:28)
[2021-08-06] MEDS: aspirin 81mg tab.chew PO SCH (07:29)
[2021-08-06] MEDS: lisinopril 5mg tablet PO SCH (07:29)
[2021-08-06] MEDS: spironolactone 25 MG tablet PO SCH (07:29)
[2021-08-06] MEDS: nicotine 21mg patch - 24 hr TD SCH (07:32)
[2021-08-06] MEDS: nitroGLYCERIN 0.4mg/hour patch TD SCH (07:34)
[2021-08-06] MEDS ORDERED: ipratropium/albuterol 3ml nebule NEB SCH (10:10)
--- NOTE | 2021-08-06 18:18 | NUR ---
Problems reprioritized. Patient report given, questions answered & plan of care reviewed with Leatha ARRINGTON.
[2021-08-06] MEDS: nitroGLYCERIN 1gm ointment UD TP PRN (20:18)
--- NOTE | 2021-08-06 21:19 | NUR ---
1955 patient complained of 4 min sudden chest pressure, non radiating, sweating, no trouble breathing. Patient states pain improving about 5/10 now. Vitals stable, Dr Gusman paged for STAT EKG and further orders. RN spoke with Dr Gusman around 2099, also received orders for troponin, and for patient to have PRN neb if ordered. Patient had scheduled neb at 2099. RT on floor and will be giving, patient states pain continues to improve at 3/10 now. PRN nitro paste was applied, patient being monitored on tele and pulse ox on vitals machine. Awaiting results of troponin. Continuing to monitor patient frequently.
[2021-08-07] VITALS (9 sets, daily range): BP systolic 113–155; BP diastolic 78–104
--- NOTE | 2021-08-07 03:12 | NUR ---
During hourly rounds patient c/o headache and chest pain and states he feels short of breath. Patient has scheduled nebulizer at 0300 and message sent to RT to make patient priority once on PCU floor. RN assessed lung sounds and noted expiratory wheezes and course lung sounds. Patient requested O2 via nasal cannula, SPO2 is 95% on room air. Oxygen placed for comfort and after just a min patient stated he was feeling much better, chest pain and headache improving. Oxygen left on patient for comfort, will update RT when they come see him and will endorse to day shift RN to inform doctor. Will continue to monitor patient. Patient instructed to use call light if chest pain, shortness of breath returns or any other issues.
[2021-08-07] MEDS: ipratropium/albuterol 3ml nebule NEB SCH ×4 (03:16→20:33)
--- NOTE | 2021-08-07 04:16 | NUR ---
Patient put his call light on, c/o sharp chest pain radiating to left arm. Pain before was a pressure, this is different. Patient still wearing oxygen at 2LPM NC. PRN Nitro paste applied and other RN getting vitals. Dr Gusman paged, return call and Dr updated on patient condition. Per Dr Gusman only nitro paste at this time, no other orders. Continue to monitor patient. school laboratory technician informed of patient c/o chest pain and to inform RN right away if any changes in rhythm. Will continue to monitor patient closely.
[2021-08-07] MEDS: nitroGLYCERIN 1gm ointment UD TP PRN (04:23)
--- NOTE | 2021-08-07 04:59 | NUR ---
Patient reports pain improving with rest, deep breaths with oxygen on, pain currently 5/10. Patient resting quietly in bed. Will continue to monitor.
--- NOTE | 2021-08-07 05:24 | NUR ---
[facility] [place] room 3020 complaining of worsening chest pain. Would you consider a chest x-ray to compare to last? Also, please consider morphine for pain. Thank you Mandy [phone] Addendum: 08/07/21 at 0531 by Mandy Merino RN [facility] room 3020 regarding chest pain. Pt BP steadily increasing. Currently 155/104 and hour ago pt BP was 125/93. Significant increase. Pending response. Thanks Addendum: 08/07/21 at 0537 by Mandy Merino RN New orders placed per chest x-ray, Troponins, morphine
--- NOTE | 2021-08-07 05:40 | NUR ---
Orders for morphine, chest xray and troponin STAT entered, page sent to radiology regarding stat chest xray. lab already on the floor to draw blood
[2021-08-07] MEDS: morphine 2 MG/ML inj. syringe IV PRN ×3 (05:45→19:06)
[2021-08-07 06:17] LABS: BASOPHILS % (AUTO) 0.3 % (0-1); EOSINOPHILS % (AUTO) 0 % (0-6); HEMATOCRIT 45.1 % (42.0-52.0); HEMOGLOBIN 14.9 g/dl (14.0-17.9); LYMPHOCYTES % (AUTO) 7.3 % (21-51); MEAN CORPUSCULAR HEMOGLOBIN 31.6 PG (27.0-31.0); MEAN CORPUSCULAR VOLUME 95.6 FL (78-98); MEAN PLATELET VOLUME 9.9 FL (7.4-10.4); MONOCYTES # (AUTO) 0.5 X10'3 (0-0.9); MONOCYTES % (AUTO) 3.7 % (2-12); NEUTROPHILS # (AUTO) 12.2 X10'3 (1.8-7.7); NEUTROPHILS % (AUTO) 88.7 % (42-75); PLATELET COUNT 218 X10'3 (140-440); RED BLOOD COUNT 4.72 X10'6 (4.70-6.10); WHITE BLOOD COUNT 13.7 X10'3 (4.5-11.0)
--- NOTE | 2021-08-07 06:21 | NUR ---
Patient in room PCU 3020. I have received report from Leatha ARRINGTON and had the opportunity to ask questions and assume patient care.
[2021-08-07 06:31] LABS: ALANINE AMINOTRANSFERASE 32 U/L (12-78); ALBUMIN 2.9 G/DL (3.4-5.0); ALBUMIN/GLOBULIN RATIO 0.8 (1.1-1.5); ALKALINE PHOSPHATASE 63 IU/L (46-116); ANION GAP 11 (8-16); ASPARTATE AMINO TRANSFERASE 23 U/L (10-37); BILIRUBIN,TOTAL 0.4 MG/DL (0.1-1.0); BLOOD UREA NITROGEN 32 MG/DL (7-18); BUN/CREATININE RATIO 24.4 (5.4-32.0); CALCIUM 8.7 MG/DL (8.5-10.1); CHLORIDE 104 MMOL/L (99-107); CREATININE 1.31 MG/DL (0.60-1.10); GLUCOSE 166 MG/DL (70-104); MAGNESIUM 2.5 MG/DL (1.5-2.4); POTASSIUM 5.2 MMOL/L (3.5-5.1); SODIUM 137 MMOL/L (135-145); TOTAL CARBON DIOXIDE 22.5 MMOL/L (24-32); TOTAL PROTEIN 6.7 G/DL (6.4-8.2); eGFR 56 ML/MIN
[2021-08-07] MEDS: K and/or MAG REPLACEMENT MC SCH ×2 (08:00→18:55)
[2021-08-07] MEDS: lisinopril 5mg tablet PO SCH (08:00)
[2021-08-07] MEDS: piperacillin/tazo 4.5gm/100ml 100 ML IV SCH ×3 (09:03→23:23)
[2021-08-07] MEDS: methylPREDNISolone sod succ 125mg/2ml vial IV SCH ×2 (09:07→19:05)
[2021-08-07] MEDS: docusate sod 100mg capsule PO SCH ×2 (09:07→19:05)
[2021-08-07] MEDS: aspirin 81mg tab.chew PO SCH (09:07)
[2021-08-07] MEDS: spironolactone 25 MG tablet PO SCH (09:08)
[2021-08-07] MEDS: nitroGLYCERIN 0.4mg/hour patch TD SCH (09:10)
[2021-08-07] MEDS: carvedilol 6.25mg tablet PO SCH ×2 (09:10→19:05)
[2021-08-07] MEDS: atorvastatin 20mg tablet PO SCH (09:10)
[2021-08-07] MEDS: nicotine 21mg patch - 24 hr TD SCH (09:13)
--- NOTE | 2021-08-07 18:00 | NUR ---
Problems reprioritized. Patient report given, questions answered & plan of care reviewed with Leatha ARRINGTON.
[2021-08-08 02:00] VITALS: BP 130/97
[2021-08-08] MEDS: ipratropium/albuterol 3ml nebule NEB SCH ×2 (02:56→09:52)
[2021-08-08 03:15] VITALS: BP 141/102
[2021-08-08] MEDS: morphine 2 MG/ML inj. syringe IV PRN ×2 (03:16→07:22)
[2021-08-08] MEDS: nitroGLYCERIN 1gm ointment UD TP PRN (04:20)
[2021-08-08 04:23] VITALS: BP 136/96
--- NOTE | 2021-08-08 05:02 | NUR ---
0300 Patient put production clerk light and c/o chest pain. Received morphine 1mg at 0315, BP elevated at 141/102, patient denies other issues. Pain starting to improve after 20min. 0410 patient c/o increasing chest pain again, more of pressure, no shortness of breath, feeling little sweaty, pain radiating to left shoulder/upper arm. PRN nitro paste applied, patient reported relief with in 5 min. Pain improved from 9/10 to 6/10. Patient inquired if this could be heart burn causing some of pain and agreed to try maalox. PRN Maalox given, patient reports slight improvement to 5/10. Increase in pain with deep breaths and moving left arm. BP improved slightly to 136/96, oxygen saturation good at 96 and heart rate in 90s. RN checked with [employer] and noted that patient had inverted t wave at 1700 08/07. Page sent to Dr Gusman informing of patient condition, and telecommunications repairer report. Awaiting call back with any further orders. Was noted patient had increased opacity in right lower lung and increased left pleural effusion on chest xray 08/07 in morning.
[2021-08-08 06:00] VITALS: BP 124/89
[2021-08-08 06:24] LABS: BASOPHILS % (AUTO) 0.2 % (0-1); EOSINOPHILS % (AUTO) 0 % (0-6); HEMATOCRIT 42.8 % (42.0-52.0); HEMOGLOBIN 14.1 g/dl (14.0-17.9); LYMPHOCYTES # (AUTO) 0.8 X10'3 (1.1-4.8); LYMPHOCYTES % (AUTO) 7.6 % (21-51); MEAN CORPUSCULAR HEMOGLOBIN 31.3 PG (27.0-31.0); MEAN CORPUSCULAR VOLUME 94.9 FL (78-98); MEAN PLATELET VOLUME 9.7 FL (7.4-10.4); MONOCYTES # (AUTO) 0.5 X10'3 (0-0.9); MONOCYTES % (AUTO) 4.6 % (2-12); NEUTROPHILS # (AUTO) 8.9 X10'3 (1.8-7.7); NEUTROPHILS % (AUTO) 87.6 % (42-75); PLATELET COUNT 199 X10'3 (140-440); RED BLOOD COUNT 4.51 X10'6 (4.70-6.10); RED CELL DISTRIBUTION WIDTH 14.7 % (11.5-14.5); WHITE BLOOD COUNT 10.2 X10'3 (4.5-11.0)
--- NOTE | 2021-08-08 06:30 | NUR ---
Patient in room PCU 3020. I have received report from Leatha ARRINGTON and had the opportunity to ask questions and assume patient care.
[2021-08-08 06:53] LABS: ALANINE AMINOTRANSFERASE 25 U/L (12-78); ALBUMIN 2.5 G/DL (3.4-5.0); ALBUMIN/GLOBULIN RATIO 0.8 (1.1-1.5); ALKALINE PHOSPHATASE 49 IU/L (46-116); ANION GAP 5 (8-16); ASPARTATE AMINO TRANSFERASE 18 U/L (10-37); BILIRUBIN,TOTAL 0.4 MG/DL (0.1-1.0); BLOOD UREA NITROGEN 33 MG/DL (7-18); BUN/CREATININE RATIO 25.4 (5.4-32.0); CALCIUM 8.3 MG/DL (8.5-10.1); CHLORIDE 106 MMOL/L (99-107); GLUCOSE 149 MG/DL (70-104); POTASSIUM 4.9 MMOL/L (3.5-5.1); SODIUM 137 MMOL/L (135-145); TOTAL CARBON DIOXIDE 25.8 MMOL/L (24-32); TOTAL PROTEIN 5.8 G/DL (6.4-8.2); eGFR 56 ML/MIN
[2021-08-08 06:57] LABS: MAGNESIUM 2.4 MG/DL (1.5-2.4)
[2021-08-08] MEDS: methylPREDNISolone sod succ 125mg/2ml vial IV SCH (07:23)
[2021-08-08] MEDS: lisinopril 5mg tablet PO SCH (07:26)
[2021-08-08] MEDS: carvedilol 6.25mg tablet PO SCH (07:26)
[2021-08-08] MEDS: atorvastatin 20mg tablet PO SCH (07:26)
[2021-08-08] MEDS: nicotine 21mg patch - 24 hr TD SCH (07:27)
[2021-08-08] MEDS: nitroGLYCERIN 0.4mg/hour patch TD SCH (07:29)
[2021-08-08] MEDS: piperacillin/tazo 4.5gm/100ml 100 ML IV SCH (07:30)
[2021-08-08] MEDS: K and/or MAG REPLACEMENT MC SCH (08:00)
[2021-08-08] MEDS: docusate sod 100mg capsule PO SCH (08:00)
--- NOTE | 2021-08-08 09:58 | NUR ---
Initial: Pt admit for NSTEMI, systolic heart failure with LVEF 30-35%, and PNA. Pt on a heart healthy diet and eating well, documented with average 90% PO intake throughout LOS meeting estimated nutrient needs. Recommend liberalizing to regular diet in view of lipid panel WNL with the exception of slightly low LDL. LBM 08/07, with routine bowel care available however pt refuses at times per EMR. No nutrition intervention implemented at this time. Will continue to follow. Recommendations: 1) Liberalize to regular diet; lipid panel WNL except slightly low LDL 2) Bowel care PRN 3) Weekly scaled weights Addendum: 08/08/21 at [address] Amended: Links added.
[2021-08-08] MEDS: aspirin 81mg tab.chew PO SCH (11:22)
[2021-08-08] MEDS ORDERED: spironolactone 25 MG tablet PO SCH (11:24)
[2021-08-08 11:34] VITALS: BP_SYST 133
[2021-08-08] MEDS ORDERED: AMOX-580 PO (11:41)
[2021-08-08] MEDS ORDERED: ASPI81TA53 PO (11:41)
[2021-08-08] MEDS ORDERED: SPIR25TA PO (11:41)
[2021-08-08] MEDS ORDERED: CARV6.253 PO (11:41)
[2021-08-08] MEDS ORDERED: NICO-687 TD (11:41)
[2021-08-08] MEDS ORDERED: PRED20TA PO (11:41)
[2021-08-08] MEDS ORDERED: LISI5TAB22 PO (11:41)
[2021-08-08] MEDS ORDERED: ATOR20TA66 PO (11:41)
--- NOTE | 2021-08-08 16:28 | NUR ---
patient medicated for pain x1 with good result. Seen by Dr Hassan, is for DC. patient given all DC instructions. [facility]" hopefully still [facility]" as stated by patient.Patient DC and walked out side hospital to bus stop in stable condition.
== END 2021-08-08 13:44 | disposition home or self-care (01) | DRG 190 ==
LOC: ER 04:40 → ED HOLD 08:48 → PCU 3S 09:35
PROVIDERS: ADMIT Family Medicine; ATTEND Family Medicine
PROC: 4A02XM4 Measurement of Cardiac Total Activity, External Approach (ICD-10-PCS; principal; 2021-08-04)
PROC: 3E033HZ Introduction of Radioactive Substance into Peripheral Vein, Percutaneous Approach (ICD-10-PCS; 2021-08-04)
PROC: B32T1ZZ Computerized Tomography (CT Scan) of Left Pulmonary Artery using Low Osmolar Contrast (ICD-10-PCS; 2021-08-04)
PROC: B3201ZZ Computerized Tomography (CT Scan) of Thoracic Aorta using Low Osmolar Contrast (ICD-10-PCS; 2021-08-04)
PROC: B32S1ZZ Computerized Tomography (CT Scan) of Right Pulmonary Artery using Low Osmolar Contrast (ICD-10-PCS; 2021-08-04)
DX: I21.4 Non-ST elevation (NSTEMI) myocardial infarction (principal); J96.02 Acute respiratory failure with hypercapnia; I50.21 Acute systolic (congestive) heart failure; J18.9 Pneumonia, unspecified organism; I42.9 Cardiomyopathy, unspecified; I11.0 Hypertensive heart disease with heart failure; J44.0 Chronic obstructive pulmonary disease with (acute) lower respiratory infection; Z95.1 Presence of aortocoronary bypass graft; Z20.822 Contact with and (suspected) exposure to COVID-19; J44.1 Chronic obstructive pulmonary disease with (acute) exacerbation; E78.00 Pure hypercholesterolemia, unspecified; F11.10 Opioid abuse, uncomplicated; E78.5 Hyperlipidemia, unspecified; F15.10 Other stimulant abuse, uncomplicated; M19.90 Unspecified osteoarthritis, unspecified site; F17.210 Nicotine dependence, cigarettes, uncomplicated; G40.909 Epilepsy, unspecified, not intractable, without status epilepticus; I25.10 Atherosclerotic heart disease of native coronary artery without angina pectoris; I25.2 Old myocardial infarction; Z59.00 Homelessness unspecified; Z79.82 Long term (current) use of aspirin; Z91.14 Patient's other noncompliance with medication regimen; Z95.5 Presence of coronary angioplasty implant and graft; Z91.030 Bee allergy status; Z71.6 Tobacco abuse counseling; Z71.51 Drug abuse counseling and surveillance of drug abuser
CPT/HCPCS: 36415; 71045; 71275; 78452; 80053; 80061; 80305; 83735; 83880; 84145; 84484; 85025; 85379; 85610; 85730; 86140; 87081; 87635; 93005; 93017; 93306; 94640; 94760; 96374; 96375; 97116; 97161; 99285; A9500; C9803; G0378; J0280; J0696; J1644; J1940; J2270; J2405; J2543; J2785; J2930; J3490; J7030; Q9967

== ENCOUNTER 2021-08-09 05:45 | Emergency (ER) | payer MEDICAID ==
[~2021-08-09] VITALS: Ht 172.7 cm; Wt 72.7 kg
[~2021-08-09 05:45] MED LIST changes: -ALBU8.5H17 INH; +AMOX-580 PO; +ASPI81TA53 PO; +ATOR20TA66 PO; -BUSP10TA3 PO; +CARV6.253 PO; -METO25TA6 PO; +NICO-687 TD; +PRED20TA PO; -SIMV-42 PO; +SPIR25TA PO; -VENL37.589 PO
[2021-08-09 06:38] LABS: BASOPHILS % (AUTO) 0.4 % (0-1); EOSINOPHILS # (AUTO) 0.1 X10'3 (0-0.9); EOSINOPHILS % (AUTO) 0.9 % (0-6); HEMATOCRIT 44.9 % (42.0-52.0); HEMOGLOBIN 14.8 g/dl (14.0-17.9); LYMPHOCYTES % (AUTO) 15.9 % (21-51); MEAN CORPUSCULAR HEMOGLOBIN 31.7 PG (27.0-31.0); MEAN CORPUSCULAR VOLUME 96.3 FL (78-98); MEAN PLATELET VOLUME 9.2 FL (7.4-10.4); MONOCYTES % (AUTO) 7.8 % (2-12); NEUTROPHILS # (AUTO) 9.3 X10'3 (1.8-7.7); PLATELET COUNT 211 X10'3 (140-440); RED BLOOD COUNT 4.66 X10'6 (4.70-6.10); RED CELL DISTRIBUTION WIDTH 14.9 % (11.5-14.5); WHITE BLOOD COUNT 12.4 X10'3 (4.5-11.0)
[2021-08-09 06:42] LABS: D-DIMER 2.36 MG/L FEU (0-0.50)
[2021-08-09 06:44] LABS: ALANINE AMINOTRANSFERASE 49 U/L (12-78); ALBUMIN 2.9 G/DL (3.4-5.0); ALBUMIN/GLOBULIN RATIO 0.8 (1.1-1.5); ALKALINE PHOSPHATASE 59 IU/L (46-116); ANION GAP 7 (8-16); ASPARTATE AMINO TRANSFERASE 40 U/L (10-37); BILIRUBIN,TOTAL 0.3 MG/DL (0.1-1.0); BLOOD UREA NITROGEN 38 MG/DL (7-18); BUN/CREATININE RATIO 25.9 (5.4-32.0); CALCIUM 8.1 MG/DL (8.5-10.1); CHLORIDE 106 MMOL/L (99-107); CREATININE 1.47 MG/DL (0.60-1.10); GLUCOSE 117 MG/DL (70-104); POTASSIUM 4.5 MMOL/L (3.5-5.1); SODIUM 139 MMOL/L (135-145); TOTAL CARBON DIOXIDE 26.1 MMOL/L (24-32); TOTAL PROTEIN 6.4 G/DL (6.4-8.2); eGFR 49 ML/MIN
[2021-08-09] MEDS ORDERED: carVEDilol 3.125mg tablet PO STA (07:04)
[2021-08-09] MEDS ORDERED: albuterol 2.5 MG/3 ML nebule NEB ONE (07:05)
[2021-08-09] MEDS ORDERED: lisinopril 10 MG tablet PO ONE (07:05)
[2021-08-09] MEDS ORDERED: predniSONE 20 mg tablet PO ONE (07:05)
[2021-08-09] MEDS ORDERED: ipratropium/albuterol 3ml nebule NEB ONE (07:05)
[2021-08-09] MEDS ORDERED: atorvastatin 20mg tablet PO STA (07:08)
[2021-08-09] MEDS ORDERED: azithromycin 250mg tablet PO ONE (07:10)
[2021-08-09] MEDS ORDERED: aspirin 81mg tab.chew PO ONE (07:10)
[2021-08-09] MEDS ORDERED: hydrALAZINE 20mg/ml inj. IV ONE ×2 (07:15→09:00)
[2021-08-09] MEDS: spironolactone 25 MG tablet PO SCH ×2 (07:59→08:07)
[2021-08-09 09:52] VITALS: BP 124/84
== END 2021-08-09 10:00 | disposition home or self-care (01) ==
LOC: ER 05:45
DX: J44.9 Chronic obstructive pulmonary disease, unspecified (principal); J18.9 Pneumonia, unspecified organism; E78.00 Pure hypercholesterolemia, unspecified; I11.9 Hypertensive heart disease without heart failure; Z91.030 Bee allergy status; Z79.82 Long term (current) use of aspirin; Z79.2 Long term (current) use of antibiotics; Z79.899 Other long term (current) drug therapy
CPT/HCPCS: 36415; 71045; 80053; 83880; 84484; 85025; 85379; 93005; 94640; 96374; 96376; 99285; J0360; J7512; 94760

== ENCOUNTER 2021-08-22 08:07 | Inpatient (IN) | payer MEDICAID ==
[~2021-08-22] VITALS: Ht 172.7 cm; Wt 66.8 kg
[2021-08-22 09:28] LABS: BASOPHILS # (AUTO) 0.1 X10'3 (0-0.2); BASOPHILS % (AUTO) 0.6 % (0-1); EOSINOPHILS % (AUTO) 0.5 % (0-6); HEMATOCRIT 43.7 % (42.0-52.0); HEMOGLOBIN 14.7 g/dl (14.0-17.9); LYMPHOCYTES # (AUTO) 1.6 X10'3 (1.1-4.8); LYMPHOCYTES % (AUTO) 17.5 % (21-51); MEAN CORPUSCULAR HGB CONC 33.7 g/dL (33.0-36.5); MONOCYTES # (AUTO) 0.5 X10'3 (0-0.9); MONOCYTES % (AUTO) 6.1 % (2-12); NEUTROPHILS # (AUTO) 6.7 X10'3 (1.8-7.7); NEUTROPHILS % (AUTO) 75.3 % (42-75); PLATELET COUNT 127 X10'3 (140-440); WHITE BLOOD COUNT 8.9 X10'3 (4.5-11.0)
[2021-08-22 10:31] LABS: ALANINE AMINOTRANSFERASE 77 U/L (12-78); ALBUMIN 2.7 G/DL (3.4-5.0); ALBUMIN/GLOBULIN RATIO 0.8 (1.1-1.5); ALKALINE PHOSPHATASE 120 IU/L (46-116); ANION GAP 9 (8-16); ASPARTATE AMINO TRANSFERASE 86 U/L (10-37); BILIRUBIN,TOTAL 0.6 MG/DL (0.1-1.0); BLOOD UREA NITROGEN 23 MG/DL (7-18); BUN/CREATININE RATIO 18.9 (5.4-32.0); CALCIUM 8.3 MG/DL (8.5-10.1); CHLORIDE 106 MMOL/L (99-107); CREATININE 1.22 MG/DL (0.60-1.10); GLUCOSE 125 MG/DL (70-104); SODIUM 138 MMOL/L (135-145); TOTAL CARBON DIOXIDE 23.3 MMOL/L (24-32); TOTAL PROTEIN 6.2 G/DL (6.4-8.2); eGFR 60 ML/MIN
[2021-08-22] MEDS ORDERED: heparin 10,000 units/1 ML INJ IV ONE (11:00)
[2021-08-22] MEDS: heparin 25,000 UNIT/250ml bag 250 ML IV SCH (11:38)
[2021-08-22 11:56] LABS: BASOPHILS # (AUTO) 0.1 X10'3 (0-0.2); BASOPHILS % (AUTO) 1.3 % (0-1); EOSINOPHILS % (AUTO) 0.4 % (0-6); HEMATOCRIT 45.8 % (42.0-52.0); HEMOGLOBIN 15.3 g/dl (14.0-17.9); LYMPHOCYTES # (AUTO) 1.7 X10'3 (1.1-4.8); MEAN CORPUSCULAR HEMOGLOBIN 31.5 PG (27.0-31.0); MEAN CORPUSCULAR HGB CONC 33.5 g/dL (33.0-36.5); MEAN PLATELET VOLUME 9.7 FL (7.4-10.4); MONOCYTES # (AUTO) 0.6 X10'3 (0-0.9); MONOCYTES % (AUTO) 7.2 % (2-12); NEUTROPHILS # (AUTO) 6.1 X10'3 (1.8-7.7); NEUTROPHILS % (AUTO) 71.1 % (42-75); PLATELET COUNT 90 X10'3 (140-440); RED BLOOD COUNT 4.87 X10'6 (4.70-6.10); RED CELL DISTRIBUTION WIDTH 15.1 % (11.5-14.5); WHITE BLOOD COUNT 8.6 X10'3 (4.5-11.0)
[2021-08-22 12:06] LABS: APTT 27 SECONDS (22-32)
[2021-08-22] MEDS ORDERED: HYDROcodone/acetaminophen 5mg/325mg tablet PO PRN (12:55)
[2021-08-22] MEDS ORDERED: POTASSIUM BICARB 20meq eff tab 20 MEQ TABLET.EFF PO PRN ×2 (12:55)
[2021-08-22] MEDS ORDERED: potassium CL 10mEq/100ml bag 100 ML IV PRN (12:55)
[2021-08-22] MEDS ORDERED: acetaminophen 325mg tablet PO PRN ×2 (12:55)
[2021-08-22] MEDS ORDERED: ondansetron/PF 4mg/2ml inj IV PRN (12:55)
[2021-08-22] MEDS ORDERED: morphine 2 MG/ML inj. syringe IV PRN ×2 (12:55)
[2021-08-22] MEDS ORDERED: magnesium Cl slow-release 64mg tablet PO PRN (12:55)
[2021-08-22] MEDS ORDERED: diphenhydrAMINE 25mg capsule PO PRN (12:55)
[2021-08-22] MEDS ORDERED: magnesium 4gm in 100ml NS 100 ML IV PRN (12:55)
[2021-08-22] MEDS ORDERED: magnesium hydroxide 30ml (MOM) UD suspension PO PRN (12:55)
[2021-08-22] MEDS ORDERED: mag hydrox/Alum hydrox/simeth 30ml oral suspension PO PRN (12:55)
[2021-08-22] MEDS ORDERED: acetaminophen 650mg rectal suppository RC PRN (12:55)
[2021-08-22] MEDS ORDERED: magnesium 2GM in 50ml NS 50 ML IV PRN (12:55)
[2021-08-22] MEDS ORDERED: HYDROcodone/acetaminophen 10/325mg tab PO PRN (12:55)
[2021-08-22] MEDS ORDERED: bisacodyl 10mg suppository rectal RC PRN (12:55)
[2021-08-22] MEDS ORDERED: CARV6.253 PO (12:56)
[2021-08-22] MEDS ORDERED: ASPI-920 PO (12:56)
[2021-08-22] MEDS ORDERED: NICO-687 TOP (12:56)
[2021-08-22] MEDS ORDERED: ATOR20TA PO (12:56)
[2021-08-22] MEDS ORDERED: LISI5TAB22 PO (12:56)
[2021-08-22] MEDS ORDERED: SPIR25TA5 PO (12:56)
[2021-08-22] MEDS ORDERED: aspirin 325mg tablet PO ONE (13:00)
[2021-08-22] MEDS: spironolactone 25 MG tablet PO SCH (13:00)
[2021-08-22] MEDS ORDERED: nicotine 14mg patch - 24hr TD ONE (13:17)
[2021-08-22] MEDS: nicotine 21mg patch - 24 hr TD SCH (13:21)
[2021-08-22] MEDS: normal saline 1000ml 1,000 ML IV SCH (13:26)
[2021-08-22 13:30] LABS: HEMOGLOBIN A1C 5.7 % (4.5-6.2)
[2021-08-22] MEDS: lisinopril 5mg tablet PO SCH (13:50)
[2021-08-22] MEDS ORDERED: morphine 4 MG/ML inj SYRINge ONE (13:53)
[2021-08-22] MEDS ORDERED: carvedilol 6.25mg tablet PO ONE (14:25)
[2021-08-22] MEDS ORDERED: lisinopril 20mg tablet ONE (15:27)
[2021-08-22] MEDS ORDERED: nitroGLYCERIN 0.4mg/hour patch TD ONE (15:40)
[2021-08-22 18:21] LABS: APTT 31 SECONDS (22-32)
--- NOTE | 2021-08-22 18:23 | NUR ---
PTT result pending. Remains on Hep gtt @ 800u/hr. VSS. report given to pm rn
[2021-08-22 18:39] LABS: CLARITY,URINE CLEAR (Clear); GLUCOSE, URINE 100 mg/dl (Neg); KETONES,URINE NEGATIVE (Neg); LEUKOCYTE ESTERASE ,URINE NEGATIVE (Neg); NITRITES, URINE NEGATIVE (Neg); OCCULT BLOOD,URINE NEGATIVE (Neg); PROTEIN,URINE 30 mg/dl (Neg)
[2021-08-22 18:43] LABS: URINE AMPHETAMINE SCREEN POSITIVE (Neg); URINE BARBITUATE SCREEN NEGATIVE (Neg); URINE BENZODIAZEPINES SCREEN NEGATIVE (Neg); URINE CANNABINOID SCREEN POSITIVE (Neg); URINE COCAINE SCREEN NEGATIVE (Neg); URINE METHADONE SCREEN NEGATIVE (Neg); URINE OPIATE SCREEN POSITIVE (Neg); URINE PHENCYCLIDINE SCREEN NEGATIVE (Neg)
[2021-08-22 18:48] LABS: COLOR,URINE DARK YELLOW (Yellow); UA COLLECTION TYPE CLN CATCH MIDSTREAM
[2021-08-22 18:50] LABS: SQUAMOUS EPITHELIAL CELL,UR FEW /LPF (FEW)
[2021-08-22 18:51] LABS: BACTERIA,URINE FEW /HPF (Neg); MUCUS STRANDS FEW /LPF (Neg); RBC,URINE 0-2 /HPF (0-2); WBC,URINE 0-4 /HPF (0-4)
[2021-08-22] MEDS: docusate sod 100mg capsule PO SCH (20:00)
[2021-08-22] MEDS ORDERED: carvedilol 6.25mg tablet PO SCH (20:00)
[2021-08-22] MEDS: K and/or MAG REPLACEMENT MC SCH (20:00)
[2021-08-22] MEDS: carVEDilol 12.5mg tablet PO SCH (20:33)
[2021-08-23] VITALS (14 sets, daily range): BP systolic 111–132; BP diastolic 78–98
[2021-08-23 03:43] LABS: MEAN CORPUSCULAR HEMOGLOBIN 31.2 PG (27.0-31.0); MEAN CORPUSCULAR VOLUME 94.6 FL (78-98)
[2021-08-23 03:45] LABS: BASOPHILS # (AUTO) 0.1 X10'3 (0-0.2); BASOPHILS % (AUTO) 1.1 % (0-1); EOSINOPHILS # (AUTO) 0.1 X10'3 (0-0.9); EOSINOPHILS % (AUTO) 1.7 % (0-6); HEMATOCRIT 43.4 % (42.0-52.0); HEMOGLOBIN 14.3 g/dl (14.0-17.9); LYMPHOCYTES # (AUTO) 1.9 X10'3 (1.1-4.8); LYMPHOCYTES % (AUTO) 21.8 % (21-51); MEAN PLATELET VOLUME 10.3 FL (7.4-10.4); MONOCYTES # (AUTO) 0.7 X10'3 (0-0.9); MONOCYTES % (AUTO) 7.7 % (2-12); NEUTROPHILS # (AUTO) 5.8 X10'3 (1.8-7.7); NEUTROPHILS % (AUTO) 67.7 % (42-75); PLATELET COUNT 81 X10'3 (140-440); RED BLOOD COUNT 4.59 X10'6 (4.70-6.10); RED CELL DISTRIBUTION WIDTH 14.9 % (11.5-14.5); WHITE BLOOD COUNT 8.6 X10'3 (4.5-11.0)
[2021-08-23 04:01] LABS: ALANINE AMINOTRANSFERASE 64 U/L (12-78); ALBUMIN 2.2 G/DL (3.4-5.0); ALBUMIN/GLOBULIN RATIO 0.8 (1.1-1.5); ALKALINE PHOSPHATASE 95 IU/L (46-116); ANION GAP 9 (8-16); ASPARTATE AMINO TRANSFERASE 63 U/L (10-37); BILIRUBIN,TOTAL 0.8 MG/DL (0.1-1.0); BLOOD UREA NITROGEN 25 MG/DL (7-18); CHLORIDE 108 MMOL/L (99-107); CHOL/HDL RATIO 3.2 (0.00-4.99); CHOLESTEROL 79 MG/DL (0-200); CREATININE 1.19 MG/DL (0.60-1.10); GLUCOSE 111 MG/DL (70-104); HDL CHOLESTEROL 25 MG/DL (35-60); LDL CHOLESTEROL 48 MG/DL (50-100); MAGNESIUM 1.7 MG/DL (1.5-2.4); PHOSPHORUS 3.1 MG/DL (2.3-4.5); POTASSIUM 4.4 MMOL/L (3.5-5.1); SODIUM 141 MMOL/L (135-145); TOTAL CARBON DIOXIDE 24.5 MMOL/L (24-32); TOTAL PROTEIN 5.1 G/DL (6.4-8.2); TRIGLYCERIDES 62 MG/DL (20-135); eGFR 62 ML/MIN
--- NOTE | 2021-08-23 04:40 | NUR ---
NOTIFED DR. JHAVERI OF CRITICAL TROP LEVEL OF [phone].
[2021-08-23] MEDS: atorvastatin 20mg tablet PO SCH (07:59)
[2021-08-23] MEDS: nicotine 21mg patch - 24 hr TD SCH (07:59)
[2021-08-23] MEDS: carVEDilol 12.5mg tablet PO SCH ×2 (07:59→21:08)
[2021-08-23] MEDS: aspirin 81mg tab.chew PO SCH (07:59)
[2021-08-23] MEDS ORDERED: non-formulary drug (Aspirin (Aspirin Chewable) 81 MG) PO SCH (08:00)
[2021-08-23] MEDS: spironolactone 25 MG tablet PO SCH (08:00)
[2021-08-23] MEDS: docusate sod 100mg capsule PO SCH ×2 (08:00→21:08)
[2021-08-23] MEDS: K and/or MAG REPLACEMENT MC SCH ×2 (08:00→20:00)
[2021-08-23] MEDS: lisinopril 5mg tablet PO SCH (08:00)
[2021-08-23 08:10] LABS: APTT 36 SECONDS (22-32)
[2021-08-23] MEDS ORDERED: lisinopril 10 MG tablet ONE (09:05)
[2021-08-23] MEDS ORDERED: spironolactone 25 MG tablet ONE (09:05)
[2021-08-23] MEDS: heparin 10,000 units/1 ML INJ IV PRN ×2 (09:29→22:22)
[2021-08-23] MEDS: heparin 25,000 UNIT/250ml bag 250 ML IV SCH ×2 (09:30→16:12)
[2021-08-23] MEDS: normal saline 1000ml 1,000 ML IV SCH ×2 (09:52→21:08)
[2021-08-23] MEDS ORDERED: nitroGLYCERIN-Tridil 50MG/D5W 250 ML IV ONE (11:45)
[2021-08-23] MEDS ORDERED: fentaNYL/PF 50MCG/1 ML 2ML syringe ONE (11:46)
[2021-08-23] MEDS ORDERED: heparin 1,000unit/ml 10ml vial 10 ML ONE (11:46)
[2021-08-23] MEDS ORDERED: verapamil 2.5 mg/ml inj IV ONE (11:46)
[2021-08-23] MEDS ORDERED: iohexol 350MG/ML 100ml bottle IV ONE (11:46)
[2021-08-23] MEDS ORDERED: LIDOcaine 1%/PF 5ML 10 MG/ML VIAL ONE (11:46)
[2021-08-23] MEDS ORDERED: midazolam 1 mg/ML 2ml injection ONE (11:46)
[2021-08-23 13:50] LABS: ISTAT HGB ART 14.6 g/dl (14.0-18.0); ISTAT Hct ART 43 %PCV (42-52); ISTAT O2 SATURATION ARTERIAL 94 % (95-98); ISTAT SOURCE ART
[2021-08-23] MEDS ORDERED: MESSAGE TO NURSING PO ONE ×4 (14:35)
[2021-08-23] MEDS ORDERED: MESSAGE TO PHARMACY IJ ONE (14:35)
[2021-08-23 15:34] LABS: CLARITY,URINE CLEAR (Clear); COLOR,URINE AMBER (Yellow); GLUCOSE, URINE NEGATIVE (Neg); KETONES,URINE TRACE mg/dl (Neg); LEUKOCYTE ESTERASE ,URINE NEGATIVE (Neg); NITRITES, URINE NEGATIVE (Neg); OCCULT BLOOD,URINE NEGATIVE (Neg); PH,URINE 5.5 (4.8-8.0); PROTEIN,URINE NEGATIVE (Neg); UA COLLECTION TYPE CLN CATCH MIDSTREAM
[2021-08-23 16:03] LABS: APTT 52 SECONDS (22-32)
[2021-08-23] MEDS ORDERED: albuterol 2.5 MG/3 ML nebule NEB ONE (17:00)
[2021-08-23 17:42] LABS: ABG BASE EXCESS -1.6 mmol/L (-2.0-2.0); ABG HCO3 20.8 mmol/L (22.0-26.0); ABG OXYGEN SATURATION 94.2 % (94-97); ABG PCO2 (T) 28.6 mmHg (35.0-48.0); ABG PO2 (T) 63.1 mmHg (75.0-100.0); ALLEN'S TEST POSITIVE; FCOHb 0.5 % (0.0-3.9); FLOW 0 L/min; FMetHb 0.4 % (0.0-1.5); FO2Hb 93.4 % (94-97); TOTAL HEMOGLOBIN 15.9 G/dl (14.0-18.0)
--- NOTE | 2021-08-23 18:26 | NUR ---
Problems reprioritized. Patient report given, questions answered & plan of care reviewed with Noelle ARRINGTON.
[2021-08-24] VITALS (23 sets, daily range): BP systolic 92–125; BP diastolic 52–98
[2021-08-24 06:35] LABS: BASOPHILS # (AUTO) 0.1 X10'3 (0-0.2); BASOPHILS % (AUTO) 1.1 % (0-1); EOSINOPHILS # (AUTO) 0.1 X10'3 (0-0.9); EOSINOPHILS % (AUTO) 1.2 % (0-6); HEMATOCRIT 44.3 % (42.0-52.0); HEMOGLOBIN 14.7 g/dl (14.0-17.9); LYMPHOCYTES # (AUTO) 2.3 X10'3 (1.1-4.8); LYMPHOCYTES % (AUTO) 28.6 % (21-51); MEAN CORPUSCULAR HEMOGLOBIN 31.8 PG (27.0-31.0); MEAN CORPUSCULAR HGB CONC 33.3 g/dL (33.0-36.5); MEAN CORPUSCULAR VOLUME 95.5 FL (78-98); MEAN PLATELET VOLUME 11.1 FL (7.4-10.4); MONOCYTES # (AUTO) 0.7 X10'3 (0-0.9); NEUTROPHILS # (AUTO) 4.7 X10'3 (1.8-7.7); NEUTROPHILS % (AUTO) 60.1 % (42-75); PLATELET COUNT 83 X10'3 (140-440); RED BLOOD COUNT 4.64 X10'6 (4.70-6.10); RED CELL DISTRIBUTION WIDTH 14.7 % (11.5-14.5); WHITE BLOOD COUNT 7.9 X10'3 (4.5-11.0)
[2021-08-24 06:54] LABS: ALANINE AMINOTRANSFERASE 44 U/L (12-78); ALBUMIN 2.1 G/DL (3.4-5.0); ALBUMIN/GLOBULIN RATIO 0.7 (1.1-1.5); ALKALINE PHOSPHATASE 90 IU/L (46-116); ANION GAP 8 (8-16); ASPARTATE AMINO TRANSFERASE 23 U/L (10-37); BILIRUBIN,TOTAL 0.5 MG/DL (0.1-1.0); BLOOD UREA NITROGEN 22 MG/DL (7-18); CALCIUM 7.8 MG/DL (8.5-10.1); CHLORIDE 108 MMOL/L (99-107); GLUCOSE 117 MG/DL (70-104); MAGNESIUM 1.6 MG/DL (1.5-2.4); PHOSPHORUS 3.5 MG/DL (2.3-4.5); POTASSIUM 4.5 MMOL/L (3.5-5.1); SODIUM 139 MMOL/L (135-145); TOTAL CARBON DIOXIDE 23.1 MMOL/L (24-32); TOTAL PROTEIN 5.2 G/DL (6.4-8.2); eGFR 76 ML/MIN
[2021-08-24] MEDS: docusate sod 100mg capsule PO SCH ×2 (07:54→20:37)
[2021-08-24] MEDS: nicotine 21mg patch - 24 hr TD SCH (07:54)
[2021-08-24] MEDS: aspirin 81mg tab.chew PO SCH (07:54)
[2021-08-24] MEDS: spironolactone 25 MG tablet PO SCH (07:54)
[2021-08-24] MEDS: carVEDilol 12.5mg tablet PO SCH ×2 (07:55→20:37)
[2021-08-24] MEDS: lisinopril 5mg tablet PO SCH (07:55)
[2021-08-24] MEDS: atorvastatin 20mg tablet PO SCH (07:55)
[2021-08-24] MEDS: K and/or MAG REPLACEMENT MC SCH ×2 (08:00→18:48)
[2021-08-24] MEDS: heparin 25,000 UNIT/250ml bag 250 ML IV SCH ×2 (09:28→14:35)
[2021-08-24] MEDS: heparin 10,000 units/1 ML INJ IV PRN ×2 (09:29→23:59)
--- NOTE | 2021-08-24 10:17 | NUR ---
Dr. Davis rounding on the patient; hold in ICU for now. Awaiting for Dr. Christensen to consult. Continue Nitro gtt and Heparin gtt.
--- NOTE | 2021-08-24 18:18 | NUR ---
Problems reprioritized. Patient report given, questions answered & plan of care reviewed with Chen ARRINGTON.
--- NOTE | 2021-08-24 18:30 | NUR ---
Patient in room CICU 2011. I have received report from MURPHY Mccauley and had the opportunity to ask questions and assume patient care.
[2021-08-25] VITALS (24 sets, daily range): BP systolic 95–132; BP diastolic 65–96
[2021-08-25] MEDS: normal saline 1000ml 1,000 ML IV SCH ×2 (00:55→20:55)
--- NOTE | 2021-08-25 06:06 | NUR ---
Problems reprioritized. Patient report given, questions answered & plan of care reviewed with MURPHY Paul.
--- NOTE | 2021-08-25 06:30 | NUR ---
Patient in room CICU 2012. I have received report from MURPHY Zee and had the opportunity to ask questions and assume patient care.
[2021-08-25 07:10] LABS: LYMPHOCYTES # (AUTO) 1.9 X10'3 (1.1-4.8); PLATELET COUNT 80 X10'3 (140-440)
[2021-08-25 07:12] LABS: BASOPHILS # (AUTO) 0.1 X10'3 (0-0.2); BASOPHILS % (AUTO) 1.1 % (0-1); EOSINOPHILS # (AUTO) 0.1 X10'3 (0-0.9); HEMATOCRIT 41.3 % (42.0-52.0); HEMOGLOBIN 13.7 g/dl (14.0-17.9); LYMPHOCYTES % (AUTO) 26.2 % (21-51); MEAN CORPUSCULAR HEMOGLOBIN 31.8 PG (27.0-31.0); MEAN CORPUSCULAR HGB CONC 33.2 g/dL (33.0-36.5); MEAN CORPUSCULAR VOLUME 95.7 FL (78-98); MEAN PLATELET VOLUME 11.2 FL (7.4-10.4); MONOCYTES # (AUTO) 0.7 X10'3 (0-0.9); NEUTROPHILS # (AUTO) 4.5 X10'3 (1.8-7.7); NEUTROPHILS % (AUTO) 60.7 % (42-75); RED BLOOD COUNT 4.32 X10'6 (4.70-6.10); WHITE BLOOD COUNT 7.4 X10'3 (4.5-11.0)
[2021-08-25 07:33] LABS: ALANINE AMINOTRANSFERASE 32 U/L (12-78); ALBUMIN 2.2 G/DL (3.4-5.0); ALBUMIN/GLOBULIN RATIO 0.8 (1.1-1.5); ALKALINE PHOSPHATASE 83 IU/L (46-116); ANION GAP 8 (8-16); ASPARTATE AMINO TRANSFERASE 21 U/L (10-37); BILIRUBIN,TOTAL 0.4 MG/DL (0.1-1.0); BLOOD UREA NITROGEN 20 MG/DL (7-18); CALCIUM 7.8 MG/DL (8.5-10.1); CHLORIDE 109 MMOL/L (99-107); CREATININE 1.05 MG/DL (0.60-1.10); GLUCOSE 105 MG/DL (70-104); MAGNESIUM 1.5 MG/DL (1.5-2.4); PHOSPHORUS 4.1 MG/DL (2.3-4.5); POTASSIUM 4.4 MMOL/L (3.5-5.1); SODIUM 140 MMOL/L (135-145); TOTAL PROTEIN 5.1 G/DL (6.4-8.2); eGFR 72 ML/MIN
[2021-08-25] MEDS: atorvastatin 20mg tablet PO SCH (07:52)
[2021-08-25] MEDS: lisinopril 5mg tablet PO SCH (07:52)
[2021-08-25] MEDS: aspirin 81mg tab.chew PO SCH (07:52)
[2021-08-25] MEDS: docusate sod 100mg capsule PO SCH ×2 (07:52→20:59)
[2021-08-25] MEDS: carVEDilol 12.5mg tablet PO SCH ×2 (07:52→20:59)
[2021-08-25] MEDS: spironolactone 25 MG tablet PO SCH (07:53)
[2021-08-25] MEDS: K and/or MAG REPLACEMENT MC SCH ×2 (08:00→20:00)
[2021-08-25] MEDS: nicotine 21mg patch - 24 hr TD SCH (08:13)
[2021-08-25] MEDS: heparin 25,000 UNIT/250ml bag 250 ML IV SCH (09:21)
[2021-08-25] MEDS: Insulin Reg/NS 100units/100mL 100 ML IV SCH (17:20)
[2021-08-25] MEDS ORDERED: dextrose 50%-water 50ml dispensing syringe IV PRN (17:20)
[2021-08-25] MEDS ORDERED: insulin glargine (Lantus) pen - multi-dose SQ PRN (17:20)
[2021-08-25] MEDS ORDERED: MESSAGE TO NURSING PO ONE (17:20)
--- NOTE | 2021-08-25 18:30 | NUR ---
Patient in room CICU 2011. I have received report from MURPHY Paul and had the opportunity to ask questions and assume patient care.
[2021-08-25] MEDS ORDERED: metoprolol tartrate 12.5mg (1/2 tablet) PO SCH (20:00)
[2021-08-25] MEDS: sod chloride 0.9% 10ml flush syringe IV SCH (20:00)
[2021-08-25] MEDS: mupirocin 2% nasal ointment 1gm UD NS SCH (20:59)
[2021-08-25] MEDS: nitroGLYCERIN-Tridil 50MG/D5W 250 ML IV PRN (22:00)
[2021-08-26] VITALS (24 sets, daily range): BP systolic 100–140; BP diastolic 63–101
[2021-08-26] MEDS ORDERED: MALTODEXTRIN/FRUCTOSE 0.68 KCAL/ML LIQUID 296ML BOTTLE PO ONE (05:00)
[2021-08-26] MEDS ORDERED: gabapentin 400mg capsule PO ONE (05:30)
[2021-08-26] MEDS ORDERED: cefazolin/dext.iso 2gm/100ml 100 ML IV ONE (05:30)
[2021-08-26] MEDS ORDERED: vancomycin/NS 1 GM ADD-VANTAGE 250 ML IV ONE (05:30)
[2021-08-26] MEDS ORDERED: ceFAZolin inj. 3,000 MG in normal saline 100ml IV soln 100 ML IV ONE (05:30)
[2021-08-26 05:46] LABS: BASOPHILS # (AUTO) 0.1 X10'3 (0-0.2); BASOPHILS % (AUTO) 0.9 % (0-1); EOSINOPHILS # (AUTO) 0.1 X10'3 (0-0.9); EOSINOPHILS % (AUTO) 1.4 % (0-6); HEMATOCRIT 40.4 % (42.0-52.0); HEMOGLOBIN 13.3 g/dl (14.0-17.9); LYMPHOCYTES # (AUTO) 1.4 X10'3 (1.1-4.8); LYMPHOCYTES % (AUTO) 24.3 % (21-51); MEAN CORPUSCULAR HEMOGLOBIN 31.4 PG (27.0-31.0); MEAN CORPUSCULAR VOLUME 95.3 FL (78-98); MEAN PLATELET VOLUME 11.6 FL (7.4-10.4); MONOCYTES # (AUTO) 0.6 X10'3 (0-0.9); MONOCYTES % (AUTO) 9.3 % (2-12); NEUTROPHILS # (AUTO) 3.8 X10'3 (1.8-7.7); NEUTROPHILS % (AUTO) 64.1 % (42-75); PLATELET COUNT 79 X10'3 (140-440); RED BLOOD COUNT 4.24 X10'6 (4.70-6.10); WHITE BLOOD COUNT 5.9 X10'3 (4.5-11.0)
--- NOTE | 2021-08-26 06:18 | NUR ---
Problems reprioritized. Patient report given, questions answered & plan of care reviewed with MURPHY Paul.
[2021-08-26 06:26] LABS: ALANINE AMINOTRANSFERASE 34 U/L (12-78); ALBUMIN 2.1 G/DL (3.4-5.0); ALBUMIN/GLOBULIN RATIO 0.7 (1.1-1.5); ALKALINE PHOSPHATASE 77 IU/L (46-116); ANION GAP 9 (8-16); ASPARTATE AMINO TRANSFERASE 15 U/L (10-37); BILIRUBIN,TOTAL 0.3 MG/DL (0.1-1.0); BLOOD UREA NITROGEN 21 MG/DL (7-18); BUN/CREATININE RATIO 21.4 (5.4-32.0); CALCIUM 7.8 MG/DL (8.5-10.1); CHLORIDE 109 MMOL/L (99-107); CREATININE 0.98 MG/DL (0.60-1.10); GLUCOSE 99 MG/DL (70-104); MAGNESIUM 1.6 MG/DL (1.5-2.4); PHOSPHORUS 4.1 MG/DL (2.3-4.5); POTASSIUM 4.5 MMOL/L (3.5-5.1); SODIUM 140 MMOL/L (135-145); TOTAL CARBON DIOXIDE 22.5 MMOL/L (24-32); TOTAL PROTEIN 5.2 G/DL (6.4-8.2); eGFR 78 ML/MIN
--- NOTE | 2021-08-26 06:30 | NUR ---
Patient in room CICU 2012. I have received report from MURPHY Zee and had the opportunity to ask questions and assume patient care.
[2021-08-26 06:57] LABS: ISTAT Hct MIX 44 %PCV (42-52); ISTAT O2 SATURATION MIX VENOUS 59 % (60-80); ISTAT SOURCE BLNK
[2021-08-26 07:07] LABS: LARGE PLATELETS FEW; PLATELET ESTIMATE DECREASED
[2021-08-26] MEDS ORDERED: ringers solution, lacted 1,000 ML IV ONE (07:25)
[2021-08-26] MEDS ORDERED: ceFAZolin 1000mg inj ONE (07:29)
[2021-08-26] MEDS ORDERED: epiNEPHrine 1 mg/ml inj ONE (07:29)
[2021-08-26] MEDS ORDERED: SUFENTANIL CITRATE 50 MCG/ML 2ml ampule IV ONE (07:41)
[2021-08-26] MEDS ORDERED: midazolam 1 mg/ML 2ml injection ONE (07:41)
[2021-08-26] MEDS: spironolactone 25 MG tablet PO SCH (08:00)
[2021-08-26] MEDS: docusate sod 100mg capsule PO SCH ×2 (08:00→19:58)
[2021-08-26] MEDS: lisinopril 5mg tablet PO SCH (08:00)
[2021-08-26] MEDS: nicotine 21mg patch - 24 hr TD SCH (08:00)
[2021-08-26] MEDS: atorvastatin 20mg tablet PO SCH (08:00)
[2021-08-26] MEDS: aspirin 81mg tab.chew PO SCH (08:06)
[2021-08-26] MEDS: sod chloride 0.9% 10ml flush syringe IV SCH ×2 (08:07→19:58)
[2021-08-26] MEDS: carVEDilol 12.5mg tablet PO SCH ×2 (08:23→19:58)
[2021-08-26] MEDS: mupirocin 2% nasal ointment 1gm UD NS SCH ×2 (08:24→19:58)
[2021-08-26] MEDS ORDERED: morphine 2 MG/ML inj. syringe IV PRN (09:30)
[2021-08-26] MEDS ORDERED: ondansetron/PF 4mg/2ml inj IV PRN (09:30)
[2021-08-26] MEDS ORDERED: ringers solution, lacted 1,000 ML IV SCH (09:30)
[2021-08-26] MEDS ORDERED: MESSAGE TO NURSING PO ONE (10:00)
--- NOTE | 2021-08-26 11:00 | NUR ---
Pt's surgery has been rescheduled for tomorrow. Food tray ordered an provided to pt.
[2021-08-26] MEDS: heparin 25,000 UNIT/250ml bag 250 ML IV SCH ×2 (12:08→14:39)
--- NOTE | 2021-08-26 13:14 | NUR ---
Problems reprioritized. Patient report given, questions answered & plan of care reviewed with MURPHY Hodges.
[2021-08-26] MEDS: heparin 10,000 units/1 ML INJ IV PRN (14:38)
[2021-08-26] MEDS: normal saline 1000ml 1,000 ML IV SCH (16:55)
--- NOTE | 2021-08-26 18:23 | NUR ---
Patient in room CICU 2011. I have received report from MURPHY Hodges and had the opportunity to ask questions and assume patient care.
[2021-08-26] MEDS: K and/or MAG REPLACEMENT MC SCH (20:00)
[2021-08-26] MEDS: Insulin Reg/NS 100units/100mL 100 ML IV SCH (23:30)
[2021-08-27] VITALS (24 sets, daily range): BP systolic 110–133; BP diastolic 68–93
[2021-08-27] MEDS: normal saline 1000ml 1,000 ML IV SCH (04:43)
[2021-08-27] MEDS: heparin 25,000 UNIT/250ml bag 250 ML IV SCH ×2 (04:46→23:42)
[2021-08-27] MEDS ORDERED: famotidine 20mg tablet PO ONE (06:00)
[2021-08-27] MEDS ORDERED: LORazepam 2 mg/ml vial IV ONE (06:00)
[2021-08-27 06:02] LABS: BASOPHILS # (AUTO) 0.1 X10'3 (0-0.2); BASOPHILS % (AUTO) 1.2 % (0-1); EOSINOPHILS # (AUTO) 0.1 X10'3 (0-0.9); EOSINOPHILS % (AUTO) 1.6 % (0-6); HEMATOCRIT 39.2 % (42.0-52.0); HEMOGLOBIN 13.2 g/dl (14.0-17.9); LYMPHOCYTES # (AUTO) 1.5 X10'3 (1.1-4.8); LYMPHOCYTES % (AUTO) 29.6 % (21-51); MEAN CORPUSCULAR HEMOGLOBIN 31.5 PG (27.0-31.0); MEAN CORPUSCULAR HGB CONC 33.6 g/dL (33.0-36.5); MEAN CORPUSCULAR VOLUME 93.9 FL (78-98); MEAN PLATELET VOLUME 11.1 FL (7.4-10.4); MONOCYTES # (AUTO) 0.6 X10'3 (0-0.9); MONOCYTES % (AUTO) 12.8 % (2-12); NEUTROPHILS # (AUTO) 2.7 X10'3 (1.8-7.7); NEUTROPHILS % (AUTO) 54.8 % (42-75); PLATELET COUNT 88 X10'3 (140-440); RED BLOOD COUNT 4.18 X10'6 (4.70-6.10); RED CELL DISTRIBUTION WIDTH 14.9 % (11.5-14.5)
--- NOTE | 2021-08-27 06:09 | NUR ---
Problems reprioritized. Patient report given, questions answered & plan of care reviewed with MURPHY Grimes.
[2021-08-27 06:31] LABS: ALANINE AMINOTRANSFERASE 25 U/L (12-78); ALBUMIN 2.1 G/DL (3.4-5.0); ALBUMIN/GLOBULIN RATIO 0.7 (1.1-1.5); ALKALINE PHOSPHATASE 71 IU/L (46-116); ANION GAP 7 (8-16); ASPARTATE AMINO TRANSFERASE 20 U/L (10-37); BILIRUBIN,TOTAL 0.3 MG/DL (0.1-1.0); BLOOD UREA NITROGEN 17 MG/DL (7-18); BUN/CREATININE RATIO 15.7 (5.4-32.0); CALCIUM 7.9 MG/DL (8.5-10.1); CHLORIDE 109 MMOL/L (99-107); CREATININE 1.08 MG/DL (0.60-1.10); GLUCOSE 96 MG/DL (70-104); MAGNESIUM 1.6 MG/DL (1.5-2.4); PHOSPHORUS 3.7 MG/DL (2.3-4.5); POTASSIUM 4.4 MMOL/L (3.5-5.1); SODIUM 140 MMOL/L (135-145); TOTAL CARBON DIOXIDE 24.5 MMOL/L (24-32); TOTAL PROTEIN 5.3 G/DL (6.4-8.2); eGFR 70 ML/MIN
[2021-08-27] MEDS: K and/or MAG REPLACEMENT MC SCH ×2 (08:00→18:24)
[2021-08-27] MEDS: sod chloride 0.9% 10ml flush syringe IV SCH ×2 (08:00→20:44)
[2021-08-27] MEDS: lisinopril 5mg tablet PO SCH (08:27)
[2021-08-27] MEDS: aspirin 81mg tab.chew PO SCH (08:27)
[2021-08-27] MEDS: nicotine 21mg patch - 24 hr TD SCH (08:28)
[2021-08-27] MEDS: docusate sod 100mg capsule PO SCH ×2 (08:28→20:44)
[2021-08-27] MEDS: spironolactone 25 MG tablet PO SCH (08:28)
[2021-08-27] MEDS: atorvastatin 20mg tablet PO SCH (08:28)
[2021-08-27] MEDS: carVEDilol 12.5mg tablet PO SCH ×2 (08:28→20:43)
[2021-08-27] MEDS: mupirocin 2% nasal ointment 1gm UD NS SCH (08:29)
--- NOTE | 2021-08-27 12:09 | NUR ---
Initial: Pt admit DX NSTEMI and heart failure EF 20% s/p cardiac cath pending cardiac surgery next 1-2 days per EMR. PO ~100% avg heart healthy diet meeting needs. LB 08/25 receiving routine colace. No nutrition interventions at this time. Will continue to monitor. Rec: 1. continue heart healthy diet 2. routine bowel care 3. weekly wts Addendum: 08/27/21 at [address] Amended: Links added.
[2021-08-27] MEDS ORDERED: MESSAGE TO NURSING PO ONE ×4 (16:05)
[2021-08-27] MEDS ORDERED: gabapentin 400mg capsule PO ONE (16:05)
[2021-08-27] MEDS ORDERED: MALTODEXTRIN/FRUCTOSE 0.68 KCAL/ML LIQUID 296ML BOTTLE PO ONE (16:05)
[2021-08-27] MEDS ORDERED: cefazolin/dext.iso 2gm/50ml 50 ML IV ONE (16:05)
[2021-08-27] MEDS ORDERED: vancomycin/NS 1 GM ADD-VANTAGE 250 ML IV ONE (16:05)
[2021-08-27] MEDS ORDERED: cefazolin/dext.iso 2gm/100ml 100 ML IV ONE (16:33)
--- NOTE | 2021-08-27 18:25 | NUR ---
Patient in room CICU 2011. I have received report from MURPHY Grimes and had the opportunity to ask questions and assume patient care.
--- NOTE | 2021-08-27 21:25 | NUR ---
Anesthesiologist Dr. Valencia at bedside, educating patient.
[2021-08-27] MEDS ORDERED: ringers solution, lacted 1,000 ML IV ONE (21:30)
[2021-08-27] MEDS: ipratropium/albuterol 3ml nebule NEB SCH (22:10)
[2021-08-28] VITALS (27 sets, daily range): BP systolic 106–198; BP diastolic 62–108
--- NOTE | 2021-08-28 | NUR ---
Pt is now NPO for surgery, scheduled for CVOR at 0800.
[2021-08-28] MEDS: ipratropium/albuterol 3ml nebule NEB SCH ×2 (03:13→07:00)
[2021-08-28] MEDS ORDERED: ringers solution, lacted 1,000 ML IV ONE (05:30)
[2021-08-28] MEDS ORDERED: epiNEPHrine 1 mg/ml inj ONE (05:33)
[2021-08-28] MEDS ORDERED: ceFAZolin 1000mg inj ONE (05:33)
[2021-08-28 05:53] LABS: BASOPHILS % (AUTO) 0.9 % (0-1); EOSINOPHILS # (AUTO) 0.1 X10'3 (0-0.9); EOSINOPHILS % (AUTO) 1.6 % (0-6); HEMATOCRIT 39.9 % (42.0-52.0); HEMOGLOBIN 13.2 g/dl (14.0-17.9); LYMPHOCYTES % (AUTO) 19.5 % (21-51); MEAN CORPUSCULAR HEMOGLOBIN 31.4 PG (27.0-31.0); MEAN CORPUSCULAR HGB CONC 33.1 g/dL (33.0-36.5); MEAN CORPUSCULAR VOLUME 94.9 FL (78-98); MEAN PLATELET VOLUME 11.4 FL (7.4-10.4); MONOCYTES # (AUTO) 0.6 X10'3 (0-0.9); MONOCYTES % (AUTO) 11.3 % (2-12); NEUTROPHILS # (AUTO) 3.6 X10'3 (1.8-7.7); NEUTROPHILS % (AUTO) 66.7 % (42-75); PLATELET COUNT 96 X10'3 (140-440); RED BLOOD COUNT 4.21 X10'6 (4.70-6.10); WHITE BLOOD COUNT 5.3 X10'3 (4.5-11.0)
[2021-08-28] MEDS ORDERED: famotidine 20mg tablet PO ONE (06:00)
[2021-08-28] MEDS ORDERED: LORazepam 2 mg/ml vial IV ONE (06:00)
[2021-08-28 06:01] LABS: APTT 29 SECONDS (22-32)
[2021-08-28] MEDS ORDERED: mupirocin 2% nasal ointment 1gm UD NS SCH ×2 (06:05→08:00)
--- NOTE | 2021-08-28 06:11 | NUR ---
Problems reprioritized. Patient report given, questions answered & plan of care reviewed with MURPHY Smith.
[2021-08-28 06:16] LABS: ALANINE AMINOTRANSFERASE 29 U/L (12-78); ALBUMIN 2.1 G/DL (3.4-5.0); ALBUMIN/GLOBULIN RATIO 0.7 (1.1-1.5); ALKALINE PHOSPHATASE 68 IU/L (46-116); ANION GAP 6 (8-16); ASPARTATE AMINO TRANSFERASE 20 U/L (10-37); BILIRUBIN,TOTAL 0.3 MG/DL (0.1-1.0); BLOOD UREA NITROGEN 17 MG/DL (7-18); BUN/CREATININE RATIO 17.7 (5.4-32.0); CALCIUM 7.9 MG/DL (8.5-10.1); CHLORIDE 108 MMOL/L (99-107); CREATININE 0.96 MG/DL (0.60-1.10); GLUCOSE 97 MG/DL (70-104); MAGNESIUM 1.5 MG/DL (1.5-2.4); PHOSPHORUS 3.4 MG/DL (2.3-4.5); POTASSIUM 4.5 MMOL/L (3.5-5.1); SODIUM 139 MMOL/L (135-145); TOTAL CARBON DIOXIDE 25.2 MMOL/L (24-32); TOTAL PROTEIN 5.2 G/DL (6.4-8.2); eGFR 80 ML/MIN
[2021-08-28] MEDS: nitroGLYCERIN-Tridil 50MG/D5W 250 ML IV PRN (06:26)
--- NOTE | 2021-08-28 06:41 | NUR ---
Patient in room CICU 2012. I have received report from Chen ARRINGTON and had the opportunity to ask questions and assume patient care. Pt resting comfortably. Stated the little pills he took finally let him sleep this AM.
[2021-08-28] MEDS ORDERED: LORazepam 2 mg/ml vial ONE (06:48)
[2021-08-28] MEDS ORDERED: isoflurane 100ml inhalation liquid IH ONE (07:30)
[2021-08-28] MEDS ORDERED: heparin 1,000 units/ml 10ml inj ONE (07:30)
[2021-08-28] MEDS ORDERED: DOBUTamine/D5W 500mg/250ml premix IV ONE (07:30)
[2021-08-28] MEDS ORDERED: nitroGLYCERIN in D5W 50mg/250ml (Tridil) infusion IV ONE (07:30)
[2021-08-28] MEDS ORDERED: protamine sulf. 10mg/ml inj. IV ONE (07:30)
[2021-08-28] MEDS ORDERED: rocuronium 10mg/ml inj IV ONE ×2 (07:30→08:03)
[2021-08-28] MEDS ORDERED: sevoflurane 250ml liquid IH ONE (07:30)
[2021-08-28] MEDS ORDERED: SUfentanil 50mcg/ml 1ml amp IV ONE (07:32)
--- NOTE | 2021-08-28 07:34 | NUR ---
OR Pt picked up by 2 RNs for surgery.
[2021-08-28] MEDS ORDERED: ipratropium/albuterol 3ml nebule IH PRN (07:55)
[2021-08-28] MEDS: nicotine 21mg patch - 24 hr TD SCH (08:00)
[2021-08-28] MEDS: lisinopril 5mg tablet PO SCH (08:00)
[2021-08-28] MEDS: spironolactone 25 MG tablet PO SCH (08:00)
[2021-08-28] MEDS ORDERED: heparin 10,000 units/1 ML INJ ONE (08:00)
[2021-08-28] MEDS: atorvastatin 20mg tablet PO SCH (08:00)
[2021-08-28] MEDS ORDERED: aminocaproic acid 250 MG/1 ML inj. ONE (08:00)
[2021-08-28] MEDS: docusate sod 100mg capsule PO SCH (08:00)
[2021-08-28] MEDS: K and/or MAG REPLACEMENT MC SCH (08:00)
[2021-08-28] MEDS: sod chloride 0.9% 10ml flush syringe IV SCH (08:00)
[2021-08-28] MEDS: carVEDilol 12.5mg tablet PO SCH (08:00)
[2021-08-28] MEDS ORDERED: phenylephrine 10mg/ml inj. ONE (08:03)
[2021-08-28] MEDS ORDERED: etomidate 2mg/ml inj. ONE (08:03)
[2021-08-28] MEDS: aspirin 81mg tab.chew PO SCH (08:30)
[2021-08-28 08:47] LABS: ABG BASE EXCESS -0.5 mmol/L (-2.0-2.0); ABG OXYGEN SATURATION 93.6 % (94-97); ABG PO2 69.4 mmHg (75.0-100.0); CL (ABG) 107 mmol/L (98-110); FCOHb 0.6 % (0.0-3.9); FMetHb 0.3 % (0.0-1.5); FO2Hb 92.8 % (94-97); GLUCOSE (ABG) 124 mg/dl (70-105); IONIZED CA (ABG) 1.15 mmol/L (1.10-1.43); K (ABG) 4.1 mmol/L (3.5-5.0); TOTAL HEMOGLOBIN 12.8 G/dl (14.0-18.0)
[2021-08-28] MEDS ORDERED: BUPIVAcaine/PF 5 mg/ml 10ml ONE (08:47)
[2021-08-28 08:53] LABS: ACT @ 1.70 U 240 SEC (193-297); ACT @ 2.84 U 354 SEC (260-420); BASELINE ACT 124 SEC (101-148); PATIENT WEIGHT 74.0k KG
[2021-08-28] MEDS: normal saline 1000ml 1,000 ML IV SCH (08:55)
[2021-08-28] MEDS ORDERED: cefazolin/dext.iso 2gm/100ml 100 ML IV ONE (09:00)
[2021-08-28] MEDS ORDERED: gabapentin 400mg capsule PO ONE (09:00)
[2021-08-28] MEDS ORDERED: vancomycin/NS 1 GM ADD-VANTAGE 250 ML IV ONE (09:00)
[2021-08-28 09:27] LABS: ABG HCO3 24.5 mmol/L (22.0-26.0); ABG OXYGEN SATURATION 96.8 % (94-97); ABG PCO2 49.3 mmHg (35.0-48.0); ABG PO2 93.7 mmHg (75.0-100.0); CL (ABG) 106 mmol/L (98-110); FCOHb 0.9 % (0.0-3.9); FMetHb 0.1 % (0.0-1.5); FO2Hb 95.8 % (94-97); GLUCOSE (ABG) 110 mg/dl (70-105); IONIZED CA (ABG) 1.15 mmol/L (1.10-1.43); K (ABG) 4.2 mmol/L (3.5-5.0); TOTAL HEMOGLOBIN 12.9 G/dl (14.0-18.0)
[2021-08-28] MEDS ORDERED: MESSAGE TO NURSING PO ONE (10:00)
[2021-08-28 10:10] LABS: ABG BASE EXCESS -3.8 mmol/L (-2.0-2.0); ABG HCO3 20.6 mmol/L (22.0-26.0); ABG OXYGEN SATURATION 93.9 % (94-97); ABG PCO2 35.7 mmHg (35.0-48.0); ABG PO2 71.4 mmHg (75.0-100.0); CL (ABG) 107 mmol/L (98-110); FCOHb 0.8 % (0.0-3.9); FMetHb 0.1 % (0.0-1.5); FO2Hb 93.1 % (94-97); GLUCOSE (ABG) 79 mg/dl (70-105); IONIZED CA (ABG) 1.14 mmol/L (1.10-1.43); TOTAL HEMOGLOBIN 12.9 G/dl (14.0-18.0)
[2021-08-28 10:12] LABS: ACTIVATED CLOTTING TIME 103 SEC (101-148)
[2021-08-28] MEDS ORDERED: neostigmine methylsulfate 1 MG/ML 10ml vial ONE (10:27)
[2021-08-28] MEDS ORDERED: dexamethasone sod phosphate 4mg/ml inj. ONE (10:27)
[2021-08-28] MEDS ORDERED: glycopyrrolate 0.2mg/ml inj ONE (10:27)
[2021-08-28] MEDS ORDERED: normal saline 250ml IV soln 250 ML IV PRN (10:35)
[2021-08-28] MEDS ORDERED: mineral oil 133ml enema RC PRN (10:35)
[2021-08-28] MEDS ORDERED: insulin glargine (Lantus) pen - multi-dose SQ PRN (10:35)
[2021-08-28] MEDS ORDERED: potassium Cl 20 mEq SR tablet PO PRN (10:35)
[2021-08-28] MEDS ORDERED: albumin (Human) 5% 250ml 250 ML IV PRN (10:35)
[2021-08-28] MEDS ORDERED: potassium CL 10mEq/100ml bag 100 ML IV PRN (10:35)
[2021-08-28] MEDS ORDERED: magnesium 2GM in 50ml NS 50 ML IV PRN (10:35)
[2021-08-28] MEDS ORDERED: magnesium hydroxide 30ml (MOM) UD suspension PO PRN (10:35)
[2021-08-28] MEDS ORDERED: dextrose 50%-water 50ml dispensing syringe IV PRN (10:35)
[2021-08-28] MEDS ORDERED: DOPamine 400mg/D5W 250ml 250 ML IV PRN ×2 (10:35→15:17)
[2021-08-28] MEDS ORDERED: Insulin Reg/NS 100units/100mL 100 ML IV SCH (10:35)
[2021-08-28] MEDS ORDERED: niCARDipine-NS 40mg/200ml IVPB 200 ML IV PRN (10:35)
[2021-08-28] MEDS ORDERED: potassium Cl 20mEq/100mL bag 100 ML IV PRN (10:35)
[2021-08-28] MEDS ORDERED: morphine 2 MG/ML inj. syringe IV PRN (10:35)
[2021-08-28] MEDS ORDERED: magnesium citrate 296ml oral solution PO PRN (10:35)
[2021-08-28] MEDS ORDERED: metoclopramide 5 mg/ml inj IV PRN (10:35)
[2021-08-28] MEDS ORDERED: sodium phosphate inj. 15 MMOL in dextrose 5%-water 250 ML IV PRN (10:35)
[2021-08-28] MEDS ORDERED: sodium chloride 0.45% 1,000 ML IV SCH (10:35)
[2021-08-28] MEDS ORDERED: sodium phosphate inj. 30 MMOL in dextrose 5%-water 250 ML IV PRN (10:35)
[2021-08-28] MEDS ORDERED: nitroGLYCERIN-Tridil 50MG/D5W 250 ML IV PRN (10:35)
[2021-08-28] MEDS ORDERED: Neutra Phos packet PO PRN (10:35)
[2021-08-28] MEDS ORDERED: ondansetron/PF 4mg/2ml inj IV PRN (10:35)
[2021-08-28] MEDS ORDERED: bisacodyl 10mg suppository rectal RC PRN (10:35)
[2021-08-28] MEDS ORDERED: sugammadex 200mg/2ml injection IV ONE (10:36)
[2021-08-28] MEDS ORDERED: meperidine/PF 25mg/ml syringe ONE (10:42)
--- NOTE | 2021-08-28 10:55 | NUR ---
Received to room 2012, accompanied by MDs, anesthesia, 2 RNs and surgical crew. Pt has been extubated in OR. Pt was connected to library monitor, arterial line and PA line pressure zeroed & monitored. Chest tube was connected to suction at 20 cm. Leonard cath to gravity drainage. Dressings are dry and intact. See assessment record. Nitroglycerin was infusing via Right IJ line. Pt had raspy respirations upon arrival. Unable to elicit a cough from pt.
[2021-08-28 11:01] LABS: ABG BASE EXCESS -4.3 mmol/L (-2.0-2.0); ABG HCO3 20.6 mmol/L (22.0-26.0); ABG PCO2 (T) 37.5 mmHg (35.0-48.0); ABG PO2 (T) 76.1 mmHg (75.0-100.0); FCOHb 0.4 % (0.0-3.9); FLOW 10 L/min; FMetHb 0.3 % (0.0-1.5); FO2Hb 94.3 % (94-97); PATIENT TEMPERATURE 36.8; TOTAL HEMOGLOBIN 14.5 G/dl (14.0-18.0)
--- NOTE | 2021-08-28 11:09 | NUR ---
CABG Consult: Pt s/p PARISBx1 today per EMR; would benefit from written/verbal heart healthy diet ed once appropriate post-op prior to discharge. Addendum: 08/28/21 at [address] Amended: Links added.
[2021-08-28] MEDS: ipratropium/albuterol 3ml nebule NEB PRN (11:16)
[2021-08-28 11:17] LABS: BASOPHILS % (AUTO) 0.9 % (0-1); EOSINOPHILS # (AUTO) 0.1 X10'3 (0-0.9); EOSINOPHILS % (AUTO) 1.3 % (0-6); HEMATOCRIT 40.4 % (42.0-52.0); HEMOGLOBIN 13.3 g/dl (14.0-17.9); LYMPHOCYTES % (AUTO) 19.5 % (21-51); MEAN CORPUSCULAR HEMOGLOBIN 31.5 PG (27.0-31.0); MEAN CORPUSCULAR HGB CONC 32.9 g/dL (33.0-36.5); MEAN CORPUSCULAR VOLUME 95.6 FL (78-98); MEAN PLATELET VOLUME 10.3 FL (7.4-10.4); MONOCYTES # (AUTO) 0.5 X10'3 (0-0.9); MONOCYTES % (AUTO) 9.3 % (2-12); NEUTROPHILS # (AUTO) 3.4 X10'3 (1.8-7.7); PLATELET COUNT 95 X10'3 (140-440); RED BLOOD COUNT 4.23 X10'6 (4.70-6.10); RED CELL DISTRIBUTION WIDTH 14.7 % (11.5-14.5); WHITE BLOOD COUNT 4.9 X10'3 (4.5-11.0)
[2021-08-28 11:31] LABS: ALANINE AMINOTRANSFERASE 28 U/L (12-78); ALBUMIN/GLOBULIN RATIO 0.7 (1.1-1.5); ALKALINE PHOSPHATASE 65 IU/L (46-116); ANION GAP 5 (8-16); ASPARTATE AMINO TRANSFERASE 18 U/L (10-37); BILIRUBIN,TOTAL 0.3 MG/DL (0.1-1.0); BLOOD UREA NITROGEN 13 MG/DL (7-18); BUN/CREATININE RATIO 15.9 (5.4-32.0); CALCIUM 7.5 MG/DL (8.5-10.1); CHLORIDE 109 MMOL/L (99-107); CREATININE 0.82 MG/DL (0.60-1.10); GLUCOSE 80 MG/DL (70-104); MAGNESIUM 1.5 MG/DL (1.5-2.4); PHOSPHORUS 3.8 MG/DL (2.3-4.5); POTASSIUM 4.3 MMOL/L (3.5-5.1); SODIUM 139 MMOL/L (135-145); eGFR > 90 ML/MIN
[2021-08-28 11:32] LABS: APTT 29 SECONDS (22-32)
[2021-08-28] MEDS: morphine 4 MG/ML inj SYRINge IV PRN ×3 (12:31→23:51)
[2021-08-28] MEDS: gabapentin 300mg capsule PO SCH ×2 (13:00→20:57)
--- NOTE | 2021-08-28 13:10 | NUR ---
Dr. Christensen: to see and said to DC swan and left groin line. About 1240, Lt groin line removed, pressure held x 15 min and then dressed with 4x4 and taped down to add pressure. Dressing c/d/i. Hemodynamics at arrival CO/CI - 3.8/2.1 prior to removal. Pt turned side to side, defib pads removed, 4x4 placed to coccyx. Resp status unchanged post turn. Did elicit a cough from pt and resp cleared for a couple minutes, then bakt to raspy. Sats maintained > 93% regardless of resp sounds.
--- NOTE | 2021-08-28 15:31 | NUR ---
Update Pt HOB up higher, more awake and able to better cough/deep breath. Cough was productive with clear white thin secretions. Chest supported when coughing.
[2021-08-28] MEDS: ceFAZolin/D5W- 1GM premix 50 ML IV SCH ×2 (16:12→23:52)
--- NOTE | 2021-08-28 16:19 | NUR ---
Update Pt remains somnolent but easily arouses with little mild stimulation. His cough seems stronger and is able to clear his air way. He requested to sit up more and HOB was positioned higher.
[2021-08-28 17:16] LABS: BASOPHILS % (AUTO) 0.6 % (0-1); EOSINOPHILS % (AUTO) 0 % (0-6); HEMATOCRIT 42.2 % (42.0-52.0); HEMOGLOBIN 14.2 g/dl (14.0-17.9); LYMPHOCYTES # (AUTO) 0.3 X10'3 (1.1-4.8); LYMPHOCYTES % (AUTO) 4.3 % (21-51); MEAN CORPUSCULAR HEMOGLOBIN 31.6 PG (27.0-31.0); MEAN CORPUSCULAR HGB CONC 33.7 g/dL (33.0-36.5); MEAN CORPUSCULAR VOLUME 93.9 FL (78-98); MEAN PLATELET VOLUME 10.6 FL (7.4-10.4); MONOCYTES # (AUTO) 0.4 X10'3 (0-0.9); MONOCYTES % (AUTO) 5.4 % (2-12); NEUTROPHILS # (AUTO) 6.7 X10'3 (1.8-7.7); NEUTROPHILS % (AUTO) 89.7 % (42-75); PLATELET COUNT 107 X10'3 (140-440); RED BLOOD COUNT 4.49 X10'6 (4.70-6.10); RED CELL DISTRIBUTION WIDTH 14.8 % (11.5-14.5); WHITE BLOOD COUNT 7.5 X10'3 (4.5-11.0)
[2021-08-28 17:26] LABS: ALBUMIN 2.1 G/DL (3.4-5.0); ANION GAP 11 (8-16); BLOOD UREA NITROGEN 13 MG/DL (7-18); BUN/CREATININE RATIO 15.9 (5.4-32.0); CALCIUM 7.7 MG/DL (8.5-10.1); CHLORIDE 106 MMOL/L (99-107); CREATININE 0.82 MG/DL (0.60-1.10); GLUCOSE 117 MG/DL (70-104); MAGNESIUM 1.3 MG/DL (1.5-2.4); PHOSPHORUS 3.7 MG/DL (2.3-4.5); POTASSIUM 4.5 MMOL/L (3.5-5.1); SODIUM 140 MMOL/L (135-145); eGFR > 90 ML/MIN
--- NOTE | 2021-08-28 17:48 | NUR ---
Shift Note: Pt has gradually improved resp status. Changed to NC at 4L with sats > 93%. Pt tolerated ice chips well, no s/s aspiration. BP up & NTG adjusted per parameters.
--- NOTE | 2021-08-28 18:32 | NUR ---
Problems reprioritized. Patient report given, questions answered & plan of care reviewed with Chuyita ARRINGTON.
[2021-08-28] MEDS: mupirocin 2% nasal ointment 1gm UD NS SCH (20:56)
[2021-08-28] MEDS: vancomycin/NS 1 GM ADD-VANTAGE 250 ML IV SCH (20:56)
[2021-08-28] MEDS: sennosides/docusate sodium tablet PO SCH (20:57)
[2021-08-28] MEDS: atorvastatin 10mg tablet PO SCH (20:57)
[2021-08-29] VITALS (23 sets, daily range): BP systolic 86–145; BP diastolic 10–99
[2021-08-29] MEDS: HYDROcodone/acetaminophen 10/325mg tab PO PRN ×2 (00:39→04:39)
[2021-08-29] MEDS: morphine 4 MG/ML inj SYRINge IV PRN (02:02)
[2021-08-29] MEDS: acetaminophen 325mg tablet PO PRN (02:08)
[2021-08-29] MEDS ORDERED: niCARDipine-NS 40mg/200ml IVPB 200 ML IV PRN (03:25)
--- NOTE | 2021-08-29 03:33 | NUR ---
RN Note-MD Communication Called Dr. Christensen regarding pain, hypertension requiring increase of Nitro drip, lung sounds and temp of 38.9. Orders received.
[2021-08-29 03:43] LABS: BASOPHILS % (AUTO) 0.4 % (0-1); EOSINOPHILS % (AUTO) 0 % (0-6); HEMATOCRIT 42.1 % (42.0-52.0); HEMOGLOBIN 13.9 g/dl (14.0-17.9); LYMPHOCYTES # (AUTO) 0.6 X10'3 (1.1-4.8); LYMPHOCYTES % (AUTO) 7.6 % (21-51); MEAN CORPUSCULAR HEMOGLOBIN 31.4 PG (27.0-31.0); MEAN CORPUSCULAR VOLUME 95.3 FL (78-98); MEAN PLATELET VOLUME 11.7 FL (7.4-10.4); MONOCYTES # (AUTO) 0.7 X10'3 (0-0.9); MONOCYTES % (AUTO) 9.3 % (2-12); NEUTROPHILS # (AUTO) 6.1 X10'3 (1.8-7.7); NEUTROPHILS % (AUTO) 82.7 % (42-75); PLATELET COUNT 112 X10'3 (140-440); RED BLOOD COUNT 4.42 X10'6 (4.70-6.10); RED CELL DISTRIBUTION WIDTH 15.1 % (11.5-14.5); WHITE BLOOD COUNT 7.4 X10'3 (4.5-11.0)
[2021-08-29 03:56] LABS: APTT 29 SECONDS (22-32)
[2021-08-29 04:03] LABS: ALANINE AMINOTRANSFERASE 24 U/L (12-78); ALBUMIN/GLOBULIN RATIO 0.6 (1.1-1.5); ALKALINE PHOSPHATASE 62 IU/L (46-116); ANION GAP 7 (8-16); ASPARTATE AMINO TRANSFERASE 20 U/L (10-37); BILIRUBIN,TOTAL 0.4 MG/DL (0.1-1.0); BLOOD UREA NITROGEN 14 MG/DL (7-18); BUN/CREATININE RATIO 15.6 (5.4-32.0); CALCIUM 7.8 MG/DL (8.5-10.1); CHLORIDE 103 MMOL/L (99-107); GLUCOSE 117 MG/DL (70-104); MAGNESIUM 1.4 MG/DL (1.5-2.4); PHOSPHORUS 3.8 MG/DL (2.3-4.5); POTASSIUM 4.7 MMOL/L (3.5-5.1); SODIUM 136 MMOL/L (135-145); TOTAL PROTEIN 5.4 G/DL (6.4-8.2); eGFR 86 ML/MIN
[2021-08-29 04:30] LABS: TOTAL CELLS COUNTED 100
[2021-08-29 04:31] LABS: LARGE PLATELETS FEW; PLATELET ESTIMATE DECREASED
[2021-08-29] MEDS: ipratropium/albuterol 3ml nebule NEB PRN (04:57)
[2021-08-29] MEDS ORDERED: furosemide 20 MG/2 ML vial IV SCH (08:00)
[2021-08-29] MEDS: sennosides/docusate sodium tablet PO SCH (08:07)
[2021-08-29] MEDS: gabapentin 300mg capsule PO SCH ×3 (08:07→21:19)
[2021-08-29] MEDS: metoprolol tartrate 12.5mg (1/2 tablet) PO SCH ×2 (08:08→20:35)
[2021-08-29] MEDS: aspirin 81mg tab.chew PO SCH (08:08)
[2021-08-29] MEDS: ketorolac tromethamine 15mg/ml inj. IM SCH ×3 (08:12→20:34)
[2021-08-29] MEDS: ceFAZolin/D5W- 1GM premix 50 ML IV SCH ×3 (08:12→23:55)
[2021-08-29] MEDS: vancomycin/NS 1 GM ADD-VANTAGE 250 ML IV SCH ×2 (08:12→20:33)
[2021-08-29] MEDS: mupirocin 2% nasal ointment 1gm UD NS SCH ×2 (08:13→20:34)
--- NOTE | 2021-08-29 11:29 | NUR ---
Mid shift note Pt was out of bed early this am as his temp was elevated. Encouraged cough/deep breath but coaching required to get him to take a deep breath before coughing. Around 1030 pt was returned to bed. Wakes to cough and clears tannish secretions.
[2021-08-29] MEDS ORDERED: normal saline 1000ml 1,000 ML IV SCH (12:00)
[2021-08-29] MEDS ORDERED: LIDOcaine 1%/PF 5ML 10 MG/ML VIAL ONE (14:17)
--- NOTE | 2021-08-29 16:19 | NUR ---
Sitting Pt moved to chair with min assist for late lunch after IR was here to tap his left lung. 1100 cc returned from thoracentesis and pt states he's breathing better since the tap. Urine cath removed without difficulty. Pt cleaned himself post removal, encouraged to cough/deep breath. Sats improve with nasal inhalation.
--- NOTE | 2021-08-29 17:43 | NUR ---
A FIB Pt sitting in chair for dinner and suddenly went into afib. Dr. Christensen called, orders received.
[2021-08-29] MEDS ORDERED: amiodarone 150mg/dext, iso-os 100 ML IV ONE (17:45)
[2021-08-29] MEDS: amiodarone/D5 360MG/200ML BAG 200 ML IV SCH (18:25)
--- NOTE | 2021-08-29 18:40 | NUR ---
Problems reprioritized. Patient report given, questions answered & plan of care reviewed with Noelle ARRINGTON.
[2021-08-29] MEDS: furosemide 20 MG/2 ML vial IV SCH ×2 (19:03→21:17)
[2021-08-29] MEDS: atorvastatin 10mg tablet PO SCH (20:34)
[2021-08-30] VITALS (12 sets, daily range): BP systolic 93–114; BP diastolic 60–86
[2021-08-30] MEDS: amiodarone/D5 360MG/200ML BAG 200 ML IV SCH ×4 (00:09→18:01)
--- NOTE | 2021-08-30 02:09 | NUR ---
Pt. O2 Sats have been between 84% and 95%. Ear probe has been adjusted, Pt. continues to sat at 89%. Finger probe was applied, pt sats at 90%. Pt. is A&Ox4. No complaints of discomforts. Patient complains of pain 3/10 level on the left side of chest under dressing. Charge nurse is aware. No acute distress noted. Will continue to monitor pt.
[2021-08-30] MEDS: ketorolac tromethamine 15mg/ml inj. IM SCH (02:20)
--- NOTE | 2021-08-30 07:30 | NUR ---
Discussed with Jordin BETANCOURT this morning about no urine output during machinist 2nd shift; however, patient urinated 200ml this AM. Labs pending. Also, unable to obtain an o2 saturation on finger, ear, or nose. Orders for ABG on 6L to monitor o2 sat.
[2021-08-30] MEDS: metoprolol tartrate 12.5mg (1/2 tablet) PO SCH ×2 (07:35→20:00)
[2021-08-30] MEDS: pantoprazole 40mg Tablet.DR PO SCH (07:35)
[2021-08-30] MEDS: gabapentin 300mg capsule PO SCH ×2 (07:35→13:00)
[2021-08-30] MEDS ORDERED: albuterol 2.5 MG/3 ML nebule NEB PRN (07:35)
[2021-08-30] MEDS: aspirin 81mg tab.chew PO SCH (07:36)
[2021-08-30] MEDS: HYDROcodone/acetaminophen 10/325mg tab PO PRN ×3 (07:36→23:21)
[2021-08-30 07:57] LABS: LYMPHOCYTES # (AUTO) 0.7 X10'3 (1.1-4.8); MEAN CORPUSCULAR HGB CONC 32.9 g/dL (33.0-36.5); NEUTROPHILS # (AUTO) 4.7 X10'3 (1.8-7.7)
[2021-08-30 08:00] LABS: BASOPHILS % (AUTO) 0.4 % (0-1); EOSINOPHILS % (AUTO) 0.1 % (0-6); HEMATOCRIT 43.5 % (42.0-52.0); HEMOGLOBIN 14.3 g/dl (14.0-17.9); MEAN CORPUSCULAR HEMOGLOBIN 31.5 PG (27.0-31.0); MEAN CORPUSCULAR VOLUME 95.8 FL (78-98); MEAN PLATELET VOLUME 11.4 FL (7.4-10.4); MONOCYTES # (AUTO) 0.2 X10'3 (0-0.9); MONOCYTES % (AUTO) 4.3 % (2-12); NEUTROPHILS % (AUTO) 82.2 % (42-75); PLATELET COUNT 115 X10'3 (140-440); RED BLOOD COUNT 4.54 X10'6 (4.70-6.10); RED CELL DISTRIBUTION WIDTH 14.7 % (11.5-14.5); WHITE BLOOD COUNT 5.8 X10'3 (4.5-11.0)
[2021-08-30] MEDS ORDERED: furosemide 20 MG/2 ML vial IV SCH (08:00)
[2021-08-30] MEDS: mupirocin 2% nasal ointment 1gm UD NS SCH (08:00)
[2021-08-30 08:20] LABS: ALBUMIN 1.8 G/DL (3.4-5.0); ANION GAP 5 (8-16); BLOOD UREA NITROGEN 27 MG/DL (7-18); BUN/CREATININE RATIO 18.8 (5.4-32.0); CALCIUM 7.9 MG/DL (8.5-10.1); CHLORIDE 100 MMOL/L (99-107); CREATININE 1.44 MG/DL (0.60-1.10); GLUCOSE 105 MG/DL (70-104); MAGNESIUM 1.6 MG/DL (1.5-2.4); PHOSPHORUS 3.8 MG/DL (2.3-4.5); POTASSIUM 5.3 MMOL/L (3.5-5.1); SODIUM 131 MMOL/L (135-145); TOTAL CARBON DIOXIDE 25.7 MMOL/L (24-32); eGFR 50 ML/MIN
[2021-08-30 08:26] LABS: ABG HCO3 18.8 mmol/L (22.0-26.0); ABG OXYGEN SATURATION 90.8 % (94-97); ABG PO2 (T) 58.5 mmHg (75.0-100.0); ALLEN'S TEST POSITIVE; FCOHb 0.5 % (0.0-3.9); FLOW 6 L/min; FMetHb 0.3 % (0.0-1.5); FO2Hb 90.1 % (94-97); TOTAL HEMOGLOBIN 15.6 G/dl (14.0-18.0)
--- NOTE | 2021-08-30 08:30 | NUR ---
AM lab results in. Mg 1.6, K 5.3 and creatine up to 1.44; patient also with a 16 beat run of Vtach. Abdirizak Silveira called and message left with him. Esperanza Macias CALCULATION CLERK at bedside and aware. Orders to give 2mg mag for now and will hold Toradol and Lasix until return phone call from Abdirizak BETANCOURT. Patient started on NC high flow at 8L/min.
[2021-08-30 09:00] LABS: TOTAL CELLS COUNTED 100
[2021-08-30 09:01] LABS: LARGE PLATELETS FEW; PLATELET ESTIMATE DECREASED; POIKILOCYTOSIS FEW
--- NOTE | 2021-08-30 10:12 | NUR ---
Patient report given to Lois Sandhu RN; RN aware of holding of Toradol and Lasix until Abdirizak Silveira aware of Creatinine level. Mag 2g transfusing per Gilberto TANK CAR MECHANIC order; consult Abdirizak BETANCOURT for further administration.
--- NOTE | 2021-08-30 10:30 | NUR ---
Pt resting quietly VSS Chest tubes with min drainage " Offers no c/o of pain or discomfort at this time "
[2021-08-30] MEDS: albuterol 2.5 MG/3 ML nebule NEB SCH ×4 (11:32→22:16)
--- NOTE | 2021-08-30 11:36 | NUR ---
F/u 08/30: Pt seen by TRAM for written/verbal HH diet ed w/ TRAM contact information provided. TRAM encouraged pt to contact dietitian's office if further questions/concerns. Addendum: 08/30/21 at [address] Amended: Links added.
--- NOTE | 2021-08-30 14:00 | NUR ---
Pt up to chair maite well VSS Sat decrease sl with activity Good prod cough noted "c/o of pain with coughing " up for lunch
--- NOTE | 2021-08-30 15:51 | NUR ---
Pt med for pain and IS and flutter value done with PT Coughing up dk brown secretions Chest tube pleural vac changed Amiodarone gtt remains RSR VSS Report given to Katerin ARRINGTON on PCU TRansfering to room 3008
--- NOTE | 2021-08-30 16:05 | NUR ---
Pt transfer via w/c to PCU 3009 Pt sl SOB on exertion Coughing up secretions Assist to bed with Katerin nurse at bedside Status unchg Belongs were gone thru with PT at bedside See belonging list
--- NOTE | 2021-08-30 17:30 | NUR ---
RT in the room, pt is trying to eat, O2 dropping, RT moved up to 12L. DB & C as well as using IS and flutter valve. Will continue to monitor.
--- NOTE | 2021-08-30 18:30 | NUR ---
Problems reprioritized. Patient report given, questions answered & plan of care reviewed with MURPHY Viera.
--- NOTE | 2021-08-30 18:52 | NUR ---
Patient in room PCU 3009. I have received report from Katie ARRINGTON and had the opportunity to ask questions and assume patient care.
[2021-08-30] MEDS: atorvastatin 10mg tablet PO SCH (20:05)
[2021-08-30] MEDS: amiodarone 200mg tablet PO SCH (20:05)
[2021-08-31] VITALS (14 sets, daily range): BP systolic 75–136; BP diastolic 54–87
[2021-08-31] MEDS: morphine 4 MG/ML inj SYRINge IV PRN ×3 (01:01→19:01)
[2021-08-31] MEDS: albuterol 2.5 MG/3 ML nebule NEB SCH ×6 (03:23→23:15)
--- NOTE | 2021-08-31 06:43 | NUR ---
Problems reprioritized. Patient report given, questions answered & plan of care reviewed with Claudine ARRINGTON.
[2021-08-31] MEDS: pantoprazole 40mg Tablet.DR PO SCH (07:05)
--- NOTE | 2021-08-31 07:17 | NUR ---
Patient in room PCU 3009. I have received report from sarahy ARRINGTON and had the opportunity to ask questions and assume patient care.
[2021-08-31] MEDS: aspirin 81mg tab.chew PO SCH (07:39)
[2021-08-31] MEDS: amiodarone 200mg tablet PO SCH (07:39)
[2021-08-31] MEDS: metoprolol tartrate 12.5mg (1/2 tablet) PO SCH (07:39)
--- NOTE | 2021-08-31 07:46 | NUR ---
patient significantly distressed Resps 42, o2 79% RT paged patient now on 15L high flow and 15L non rebreather. Dr witt called. Order given to transfer to ICU.
[2021-08-31 08:24] LABS: BASOPHILS % (AUTO) 0.3 % (0-1); EOSINOPHILS % (AUTO) 0.1 % (0-6); HEMATOCRIT 42.5 % (42.0-52.0); HEMOGLOBIN 14.2 g/dl (14.0-17.9); LYMPHOCYTES # (AUTO) 0.7 X10'3 (1.1-4.8); LYMPHOCYTES % (AUTO) 10.4 % (21-51); MEAN CORPUSCULAR HEMOGLOBIN 31.5 PG (27.0-31.0); MEAN CORPUSCULAR HGB CONC 33.3 g/dL (33.0-36.5); MEAN CORPUSCULAR VOLUME 94.7 FL (78-98); MEAN PLATELET VOLUME 10.7 FL (7.4-10.4); MONOCYTES # (AUTO) 0.2 X10'3 (0-0.9); MONOCYTES % (AUTO) 2.7 % (2-12); NEUTROPHILS # (AUTO) 5.5 X10'3 (1.8-7.7); NEUTROPHILS % (AUTO) 86.5 % (42-75); PLATELET COUNT 140 X10'3 (140-440); RED BLOOD COUNT 4.49 X10'6 (4.70-6.10); RED CELL DISTRIBUTION WIDTH 14.8 % (11.5-14.5); WHITE BLOOD COUNT 6.4 X10'3 (4.5-11.0)
[2021-08-31 08:30] LABS: ABG BASE EXCESS -0.6 mmol/L (-2.0-2.0); ABG HCO3 22.9 mmol/L (22.0-26.0); ABG OXYGEN SATURATION 93.7 % (94-97); ABG PCO2 (T) 34.8 mmHg (35.0-48.0); ALLEN'S TEST POSITIVE; FCOHb 0.1 % (0.0-3.9); FLOW 15 L/min; FMetHb 0.4 % (0.0-1.5); FO2Hb 93.2 % (94-97); TOTAL HEMOGLOBIN 14.9 G/dl (14.0-18.0)
[2021-08-31 08:45] LABS: ALANINE AMINOTRANSFERASE 17 U/L (12-78); ALBUMIN 1.7 G/DL (3.4-5.0); ALBUMIN/GLOBULIN RATIO 0.5 (1.1-1.5); ALKALINE PHOSPHATASE 71 IU/L (46-116); ANION GAP 6 (8-16); ASPARTATE AMINO TRANSFERASE 42 U/L (10-37); BILIRUBIN,TOTAL 0.4 MG/DL (0.1-1.0); BLOOD UREA NITROGEN 27 MG/DL (7-18); BUN/CREATININE RATIO 23.7 (5.4-32.0); CALCIUM 7.7 MG/DL (8.5-10.1); CHLORIDE 98 MMOL/L (99-107); CREATININE 1.14 MG/DL (0.60-1.10); GLUCOSE 103 MG/DL (70-104); POTASSIUM 5.2 MMOL/L (3.5-5.1); SODIUM 127 MMOL/L (135-145); TOTAL PROTEIN 5.4 G/DL (6.4-8.2); eGFR 65 ML/MIN
[2021-08-31] MEDS ORDERED: furosemide 40mg/4ml inj IV ONE (09:25)
[2021-08-31] MEDS ORDERED: amiodarone 150mg/dext, iso-os 100 ML IV ONE (11:30)
--- NOTE | 2021-08-31 11:49 | NUR ---
patient had ten run of Aflutter with RVR HR 142, report given to Colt ARRINGTON patient transferred to ICU 1100 hrs.
[2021-08-31] MEDS: amiodarone/D5 360MG/200ML BAG 200 ML IV SCH ×4 (11:51→23:38)
[2021-08-31] MEDS ORDERED: digoxin 250mcg/ml 2ml ampule IV ONE ×2 (13:40→20:00)
[2021-08-31] MEDS ORDERED: digoxin 250mcg/ml 2ml ampule ONE (13:42)
[2021-08-31 14:19] LABS: MAGNESIUM 1.9 MG/DL (1.5-2.4); PHOSPHORUS 3.8 MG/DL (2.3-4.5)
[2021-08-31] MEDS ORDERED: morphine 2 MG/ML inj. syringe IV PRN (15:30)
[2021-08-31] MEDS ORDERED: ondansetron 4mg rapidly disintigrating tab PO PRN (15:30)
[2021-08-31] MEDS: atorvastatin 10mg tablet PO SCH (19:02)
[2021-08-31] MEDS: carVEDilol 3.125mg tablet PO SCH (19:02)
[2021-08-31] MEDS: acetaminophen 325mg tablet PO PRN (19:14)
[2021-08-31] MEDS ORDERED: furosemide 40mg/4ml inj IV SCH (20:00)
[2021-08-31] MEDS ORDERED: albumin (human) 25% 100 ML IV solution IV ONE (22:25)
[2021-09-01] VITALS (23 sets, daily range): BP systolic 78–151; BP diastolic 49–95
[2021-09-01 03:12] LABS: ALBUMIN 1.7 G/DL (3.4-5.0); ANION GAP 5 (8-16); BLOOD UREA NITROGEN 27 MG/DL (7-18); BUN/CREATININE RATIO 24.8 (5.4-32.0); CALCIUM 7.5 MG/DL (8.5-10.1); CHLORIDE 100 MMOL/L (99-107); CREATININE 1.09 MG/DL (0.60-1.10); GLUCOSE 104 MG/DL (70-104); MAGNESIUM 1.6 MG/DL (1.5-2.4); PHOSPHORUS 3.4 MG/DL (2.3-4.5); POTASSIUM 4.5 MMOL/L (3.5-5.1); SODIUM 132 MMOL/L (135-145); TOTAL CARBON DIOXIDE 27.3 MMOL/L (24-32); eGFR 69 ML/MIN
[2021-09-01] MEDS: amiodarone/D5 360MG/200ML BAG 200 ML IV SCH (03:16)
[2021-09-01 03:18] LABS: BASOPHILS % (AUTO) 0.1 % (0-1); EOSINOPHILS % (AUTO) 0.1 % (0-6); HEMATOCRIT 39.9 % (42.0-52.0); HEMOGLOBIN 13.3 g/dl (14.0-17.9); LYMPHOCYTES # (AUTO) 0.6 X10'3 (1.1-4.8); LYMPHOCYTES % (AUTO) 9.8 % (21-51); MEAN CORPUSCULAR HEMOGLOBIN 31.3 PG (27.0-31.0); MEAN CORPUSCULAR HGB CONC 33.3 g/dL (33.0-36.5); MEAN PLATELET VOLUME 10.3 FL (7.4-10.4); MONOCYTES # (AUTO) 0.2 X10'3 (0-0.9); MONOCYTES % (AUTO) 2.5 % (2-12); NEUTROPHILS # (AUTO) 5.5 X10'3 (1.8-7.7); NEUTROPHILS % (AUTO) 87.5 % (42-75); PLATELET COUNT 134 X10'3 (140-440); RED BLOOD COUNT 4.24 X10'6 (4.70-6.10); RED CELL DISTRIBUTION WIDTH 14.7 % (11.5-14.5); WHITE BLOOD COUNT 6.3 X10'3 (4.5-11.0)
[2021-09-01] MEDS: albuterol 2.5 MG/3 ML nebule NEB SCH ×6 (03:33→23:16)
[2021-09-01] MEDS: magnesium 4gm in 100ml NS 100 ML IV PRN (03:39)
[2021-09-01] MEDS: HYDROcodone/acetaminophen 10/325mg tab PO PRN ×3 (05:08→18:44)
--- NOTE | 2021-09-01 06:20 | NUR ---
Received report from MURPHY Rivera
[2021-09-01] MEDS ORDERED: albumin (human) 25% 100 ML IV solution IV ONE (07:50)
--- NOTE | 2021-09-01 07:50 | NUR ---
Dr. Christensen at bedside. Order received for 25% Albumin one time. Holding 0800 Lasix. BP 78/49.
[2021-09-01 08:00] LABS: PLATELET ESTIMATE DECREASED; TOTAL CELLS COUNTED 100
[2021-09-01] MEDS ORDERED: CefTRIAXone 2gm/D5W 50ml BAG 50 ML IV SCH (08:00)
[2021-09-01] MEDS: furosemide 40mg/4ml inj IV SCH ×2 (08:00→20:06)
--- NOTE | 2021-09-01 08:04 | NUR ---
Dr. Christensen removed chest tube at bedside.
[2021-09-01] MEDS: pantoprazole 40mg Tablet.DR PO SCH (08:59)
[2021-09-01] MEDS: amiodarone 200mg tablet PO SCH ×2 (08:59→20:06)
[2021-09-01] MEDS: carVEDilol 3.125mg tablet PO SCH ×2 (08:59→20:06)
[2021-09-01] MEDS: aspirin 81mg tab.chew PO SCH (08:59)
[2021-09-01] MEDS: CefTRIAXone 2gm/D5W 50ml BAG 50 ML IV SCH (09:30)
--- NOTE | 2021-09-01 18:20 | NUR ---
Report given to MURPHY Reed
[2021-09-01] MEDS: atorvastatin 10mg tablet PO SCH (20:06)
[2021-09-02] VITALS (24 sets, daily range): BP systolic 101–134; BP diastolic 53–86
[2021-09-02] MEDS: morphine 4 MG/ML inj SYRINge IV PRN (00:25)
[2021-09-02 02:41] LABS: BASOPHILS % (AUTO) 0.4 % (0-1); EOSINOPHILS % (AUTO) 0.4 % (0-6); HEMOGLOBIN 13.4 g/dl (14.0-17.9); LYMPHOCYTES # (AUTO) 0.5 X10'3 (1.1-4.8); MONOCYTES # (AUTO) 0.2 X10'3 (0-0.9); NEUTROPHILS # (AUTO) 4.8 X10'3 (1.8-7.7); WHITE BLOOD COUNT 5.5 X10'3 (4.5-11.0)
[2021-09-02 02:43] LABS: HEMATOCRIT 40.4 % (42.0-52.0); LYMPHOCYTES % (AUTO) 8.5 % (21-51); MEAN CORPUSCULAR HEMOGLOBIN 31.2 PG (27.0-31.0); MEAN CORPUSCULAR VOLUME 94.3 FL (78-98); MEAN PLATELET VOLUME 10.4 FL (7.4-10.4); MONOCYTES % (AUTO) 3.2 % (2-12); NEUTROPHILS % (AUTO) 87.5 % (42-75); PLATELET COUNT 125 X10'3 (140-440); RED BLOOD COUNT 4.29 X10'6 (4.70-6.10); RED CELL DISTRIBUTION WIDTH 14.8 % (11.5-14.5)
[2021-09-02 03:00] LABS: ALANINE AMINOTRANSFERASE 18 U/L (12-78); ALBUMIN 1.9 G/DL (3.4-5.0); ALBUMIN/GLOBULIN RATIO 0.6 (1.1-1.5); ALKALINE PHOSPHATASE 60 IU/L (46-116); ANION GAP 4 (8-16); ASPARTATE AMINO TRANSFERASE 46 U/L (10-37); BILIRUBIN,TOTAL 0.3 MG/DL (0.1-1.0); BLOOD UREA NITROGEN 24 MG/DL (7-18); BUN/CREATININE RATIO 26.1 (5.4-32.0); CALCIUM 7.7 MG/DL (8.5-10.1); CHLORIDE 98 MMOL/L (99-107); CREATININE 0.92 MG/DL (0.60-1.10); GLUCOSE 108 MG/DL (70-104); MAGNESIUM 1.8 MG/DL (1.5-2.4); PHOSPHORUS 2.9 MG/DL (2.3-4.5); SODIUM 129 MMOL/L (135-145); TOTAL CARBON DIOXIDE 27.4 MMOL/L (24-32); TOTAL PROTEIN 5.2 G/DL (6.4-8.2); eGFR 84 ML/MIN
[2021-09-02] MEDS: albuterol 2.5 MG/3 ML nebule NEB SCH ×6 (03:01→22:17)
--- NOTE | 2021-09-02 06:30 | NUR ---
Received report from MURPHY Reed
[2021-09-02] MEDS: furosemide 40mg/4ml inj IV SCH ×2 (07:52→20:28)
[2021-09-02] MEDS: CefTRIAXone 2gm/D5W 50ml BAG 50 ML IV SCH (07:53)
[2021-09-02] MEDS: carVEDilol 3.125mg tablet PO SCH ×2 (07:54→20:29)
[2021-09-02] MEDS: HYDROcodone/acetaminophen 10/325mg tab PO PRN ×3 (07:54→22:10)
[2021-09-02] MEDS: aspirin 81mg tab.chew PO SCH (07:54)
[2021-09-02] MEDS: amiodarone 200mg tablet PO SCH ×2 (07:54→20:29)
[2021-09-02] MEDS: pantoprazole 40mg Tablet.DR PO SCH (07:54)
[2021-09-02] MEDS: magnesium 4gm in 100ml NS 100 ML IV PRN (14:28)
--- NOTE | 2021-09-02 14:33 | NUR ---
F/u 09/02: Pt PO mostly ~100% NCS meals meeting estimated needs post-op now on 1.5L water restriction per EMR; dietary notified. LBM 08/27 per EMR; TRAM d/w RN regarding routine bowel care this admit post-op if MD agreeable. Will continue to monitor for further nutrition intervention needs. Rec: 1. continue NCS diet; 1.5L water restriction per MD 2. routine bowel care; 6 days constipation per EMR 3. daily wts; receiving lasix per EMR Addendum: 09/02/21 at [address] Amended: Links added.
[2021-09-02] MEDS: heparin, porcine 5000 units/ml vial SQ SCH (15:39)
--- NOTE | 2021-09-02 18:21 | NUR ---
Report given to MURPHY Reed
[2021-09-02] MEDS: atorvastatin 10mg tablet PO SCH (20:28)
[2021-09-03] VITALS (24 sets, daily range): BP systolic 111–134; BP diastolic 55–84
[2021-09-03] MEDS: heparin, porcine 5000 units/ml vial SQ SCH ×3 (00:39→15:35)
[2021-09-03] MEDS: albuterol 2.5 MG/3 ML nebule NEB SCH ×6 (02:25→22:01)
[2021-09-03 03:40] LABS: BASOPHILS % (AUTO) 0.4 % (0-1); EOSINOPHILS # (AUTO) 0.1 X10'3 (0-0.9); EOSINOPHILS % (AUTO) 1.5 % (0-6); HEMATOCRIT 40.5 % (42.0-52.0); HEMOGLOBIN 13.5 g/dl (14.0-17.9); LYMPHOCYTES # (AUTO) 0.7 X10'3 (1.1-4.8); LYMPHOCYTES % (AUTO) 11.4 % (21-51); MEAN CORPUSCULAR HEMOGLOBIN 31.2 PG (27.0-31.0); MEAN CORPUSCULAR HGB CONC 33.4 g/dL (33.0-36.5); MEAN CORPUSCULAR VOLUME 93.7 FL (78-98); MEAN PLATELET VOLUME 10.3 FL (7.4-10.4); MONOCYTES # (AUTO) 0.2 X10'3 (0-0.9); NEUTROPHILS % (AUTO) 83.7 % (42-75); PLATELET COUNT 110 X10'3 (140-440); RED BLOOD COUNT 4.33 X10'6 (4.70-6.10); RED CELL DISTRIBUTION WIDTH 14.9 % (11.5-14.5); WHITE BLOOD COUNT 5.9 X10'3 (4.5-11.0)
[2021-09-03 03:58] LABS: ALANINE AMINOTRANSFERASE 18 U/L (12-78); ALBUMIN 1.7 G/DL (3.4-5.0); ALBUMIN/GLOBULIN RATIO 0.5 (1.1-1.5); ALKALINE PHOSPHATASE 59 IU/L (46-116); ANION GAP 4 (8-16); ASPARTATE AMINO TRANSFERASE 37 U/L (10-37); BILIRUBIN,TOTAL 0.3 MG/DL (0.1-1.0); BLOOD UREA NITROGEN 19 MG/DL (7-18); BUN/CREATININE RATIO 21.1 (5.4-32.0); CALCIUM 7.5 MG/DL (8.5-10.1); CHLORIDE 100 MMOL/L (99-107); GLUCOSE 92 MG/DL (70-104); PHOSPHORUS 3.4 MG/DL (2.3-4.5); POTASSIUM 3.9 MMOL/L (3.5-5.1); SODIUM 136 MMOL/L (135-145); TOTAL CARBON DIOXIDE 31.7 MMOL/L (24-32); TOTAL PROTEIN 5.3 G/DL (6.4-8.2); eGFR 86 ML/MIN
[2021-09-03] MEDS: aspirin 81mg tab.chew PO SCH (06:54)
[2021-09-03] MEDS: carVEDilol 3.125mg tablet PO SCH ×2 (06:54→20:58)
[2021-09-03] MEDS: HYDROcodone/acetaminophen 10/325mg tab PO PRN ×2 (06:54→18:09)
[2021-09-03] MEDS: furosemide 40mg/4ml inj IV SCH ×2 (06:55→20:58)
[2021-09-03] MEDS: sennosides/docusate sodium tablet PO PRN (06:55)
[2021-09-03] MEDS: amiodarone 200mg tablet PO SCH ×2 (06:55→20:58)
[2021-09-03] MEDS: pantoprazole 40mg Tablet.DR PO SCH (06:55)
[2021-09-03] MEDS: CefTRIAXone 2gm/D5W 50ml BAG 50 ML IV SCH (07:08)
--- NOTE | 2021-09-03 08:04 | NUR ---
Everett Silveira in to see pt. Pt. medicated for 08/18 chest wall ache this morning. C/O dry mouth. Swabs and lip moisturizer provided to pt.
[2021-09-03] MEDS: albumin (human) 25% 100 ML IV solution IV SCH ×2 (12:45→20:58)
--- NOTE | 2021-09-03 12:49 | NUR ---
Dr. Davis in to see pt.
--- NOTE | 2021-09-03 18:30 | NUR ---
Patient in room CICU 2010. I have received report from MURPHY Kat and had the opportunity to ask questions and assume patient care.
--- NOTE | 2021-09-03 18:34 | NUR ---
Dr. Davis called and ordered eliquis 5mg PO BID, echo results show possible LV apical thrombus, orders placed
[2021-09-03] MEDS: atorvastatin 10mg tablet PO SCH (20:58)
[2021-09-03] MEDS: apixaban 5mg tablet PO SCH (21:55)
[2021-09-04] VITALS (17 sets, daily range): BP systolic 120–151; BP diastolic 77–94
[2021-09-04] MEDS: albuterol 2.5 MG/3 ML nebule NEB SCH ×3 (02:20→11:00)
[2021-09-04 02:54] LABS: BASOPHILS % (AUTO) 0.5 % (0-1); EOSINOPHILS # (AUTO) 0.1 X10'3 (0-0.9); EOSINOPHILS % (AUTO) 1.7 % (0-6); HEMATOCRIT 38.9 % (42.0-52.0); HEMOGLOBIN 12.9 g/dl (14.0-17.9); LYMPHOCYTES # (AUTO) 0.9 X10'3 (1.1-4.8); LYMPHOCYTES % (AUTO) 16.4 % (21-51); MEAN CORPUSCULAR HEMOGLOBIN 31.3 PG (27.0-31.0); MEAN CORPUSCULAR HGB CONC 33.3 g/dL (33.0-36.5); MEAN PLATELET VOLUME 9.8 FL (7.4-10.4); MONOCYTES # (AUTO) 0.2 X10'3 (0-0.9); MONOCYTES % (AUTO) 3.5 % (2-12); NEUTROPHILS # (AUTO) 4.4 X10'3 (1.8-7.7); NEUTROPHILS % (AUTO) 77.9 % (42-75); PLATELET COUNT 133 X10'3 (140-440); RED BLOOD COUNT 4.14 X10'6 (4.70-6.10); WHITE BLOOD COUNT 5.6 X10'3 (4.5-11.0)
[2021-09-04 03:05] LABS: ALANINE AMINOTRANSFERASE 16 U/L (12-78); ALBUMIN 2.4 G/DL (3.4-5.0); ALBUMIN/GLOBULIN RATIO 0.8 (1.1-1.5); ALKALINE PHOSPHATASE 52 IU/L (46-116); ANION GAP 5 (8-16); ASPARTATE AMINO TRANSFERASE 21 U/L (10-37); BILIRUBIN,TOTAL 0.4 MG/DL (0.1-1.0); BLOOD UREA NITROGEN 17 MG/DL (7-18); BUN/CREATININE RATIO 21.3 (5.4-32.0); CHLORIDE 103 MMOL/L (99-107); GLUCOSE 91 MG/DL (70-104); MAGNESIUM 1.7 MG/DL (1.5-2.4); PHOSPHORUS 3.2 MG/DL (2.3-4.5); POTASSIUM 3.6 MMOL/L (3.5-5.1); SODIUM 141 MMOL/L (135-145); TOTAL CARBON DIOXIDE 32.7 MMOL/L (24-32); TOTAL PROTEIN 5.6 G/DL (6.4-8.2); eGFR > 90 ML/MIN
--- NOTE | 2021-09-04 06:34 | NUR ---
Problems reprioritized. Patient report given, questions answered & plan of care reviewed with MURPHY Campbell.
--- NOTE | 2021-09-04 06:36 | NUR ---
Patient in room CICU 2010. I have received report from MURPHY Siddiqui and had the opportunity to ask questions and assume patient care.
[2021-09-04] MEDS: aspirin 81mg tab.chew PO SCH (08:28)
[2021-09-04] MEDS: CefTRIAXone 2gm/D5W 50ml BAG 50 ML IV SCH (08:28)
[2021-09-04] MEDS: apixaban 5mg tablet PO SCH ×2 (08:28→20:00)
[2021-09-04] MEDS: pantoprazole 40mg Tablet.DR PO SCH (08:28)
[2021-09-04] MEDS: furosemide 40mg/4ml inj IV SCH ×2 (08:28→20:03)
[2021-09-04] MEDS: potassium Cl 20 mEq SR tablet PO SCH ×2 (08:28→20:01)
[2021-09-04] MEDS: amiodarone 200mg tablet PO SCH ×2 (08:28→20:00)
[2021-09-04] MEDS: carVEDilol 3.125mg tablet PO SCH ×2 (08:28→20:00)
[2021-09-04] MEDS: magnesium Cl slow-release 64mg tablet PO SCH ×2 (08:28→20:01)
--- NOTE | 2021-09-04 11:22 | NUR ---
I have received report from MURPHY Campbell and had the opportunity to ask questions and assume patient care.
--- NOTE | 2021-09-04 11:30 | NUR ---
Problems reprioritized. Patient report given, questions answered & plan of care reviewed with MURPHY Darnell.
--- NOTE | 2021-09-04 11:37 | NUR ---
CABG Consult: Pt already seen by TRAM for education this admit eating well mostly ~100% avg meals meeting needs. Addendum: 09/04/21 at [address] Amended: Links added.
--- NOTE | 2021-09-04 12:29 | NUR ---
Patient up to commode to have a BM and upon primary RN checking on patient it was apparent that the patient's pupils were two different sizes. Patient has equal squeeze and movement in bilateral upper extremities and patient has equal movement and push pull in lower extremities. Patient has symmetry in face with frown and smile and upon protruding tongue. No slur or incomprehensible speech. Dr. Christensen was called and he is not concerned at this time. He stated to go ahead and send the patient to PCU.
--- NOTE | 2021-09-04 13:45 | NUR ---
Patient had a significant bowel movement and then was placed on the tele monitor for PCU and transferred to room 3009. Patient alert, oriented and in no apparent distress at time of transfer. All belongings left with patient.
--- NOTE | 2021-09-04 13:50 | NUR ---
Pt arrived to telemetry floor via wheelchair, settled in room 3009, call light in reach Addendum: 09/04/21 at 1417 by Carie Swartz RN pt pupils noted to be unequal, as stated in report from MURPHY Campbell.
--- NOTE | 2021-09-04 14:00 | NUR ---
I have reviewed, and agree with, the physical assessment charted by MURPHY Campbell Addendum: 09/04/21 at 1631 by Carie Swartz RN Amended: Links added.
--- NOTE | 2021-09-04 19:00 | NUR ---
Problems reprioritized. Patient report given, questions answered & plan of care reviewed with MURPHY Kim.
[2021-09-04] MEDS: atorvastatin 10mg tablet PO SCH (20:01)
[2021-09-05 02:00] VITALS: BP 142/90
[2021-09-05 06:00] VITALS: BP 135/87
--- NOTE | 2021-09-05 06:36 | NUR ---
Patient in room PCU 3009. I have received report from MURPHY Kim and had the opportunity to ask questions and assume patient care.
[2021-09-05] MEDS: albuterol 2.5 MG/3 ML nebule NEB PRN ×2 (07:26→19:20)
[2021-09-05] MEDS: magnesium Cl slow-release 64mg tablet PO SCH ×2 (07:36→22:26)
[2021-09-05] MEDS: apixaban 5mg tablet PO SCH ×2 (07:36→22:26)
[2021-09-05] MEDS: pantoprazole 40mg Tablet.DR PO SCH (07:36)
[2021-09-05] MEDS: potassium Cl 20 mEq SR tablet PO SCH ×2 (07:36→22:25)
[2021-09-05] MEDS: carVEDilol 3.125mg tablet PO SCH ×2 (07:36→22:26)
[2021-09-05] MEDS: amiodarone 200mg tablet PO SCH ×2 (07:36→22:25)
[2021-09-05] MEDS: aspirin 81mg tab.chew PO SCH (07:36)
[2021-09-05] MEDS: furosemide 40mg/4ml inj IV SCH ×2 (07:36→22:25)
[2021-09-05 07:53] LABS: BASOPHILS # (AUTO) 0.1 X10'3 (0-0.2); BASOPHILS % (AUTO) 0.8 % (0-1); EOSINOPHILS # (AUTO) 0.1 X10'3 (0-0.9); EOSINOPHILS % (AUTO) 1.1 % (0-6); HEMATOCRIT 42.2 % (42.0-52.0); HEMOGLOBIN 14.2 g/dl (14.0-17.9); LYMPHOCYTES # (AUTO) 1.1 X10'3 (1.1-4.8); MEAN CORPUSCULAR HEMOGLOBIN 30.8 PG (27.0-31.0); MEAN CORPUSCULAR HGB CONC 33.6 g/dL (33.0-36.5); MEAN CORPUSCULAR VOLUME 91.5 FL (78-98); MEAN PLATELET VOLUME 9.5 FL (7.4-10.4); MONOCYTES # (AUTO) 0.4 X10'3 (0-0.9); MONOCYTES % (AUTO) 4.3 % (2-12); NEUTROPHILS # (AUTO) 6.7 X10'3 (1.8-7.7); NEUTROPHILS % (AUTO) 80.8 % (42-75); PLATELET COUNT 188 X10'3 (140-440); RED BLOOD COUNT 4.61 X10'6 (4.70-6.10); RED CELL DISTRIBUTION WIDTH 14.6 % (11.5-14.5); WHITE BLOOD COUNT 8.3 X10'3 (4.5-11.0)
[2021-09-05 08:01] LABS: ALBUMIN 2.3 G/DL (3.4-5.0); ANION GAP 8 (8-16); BLOOD UREA NITROGEN 14 MG/DL (7-18); BUN/CREATININE RATIO 18.9 (5.4-32.0); CALCIUM 8.2 MG/DL (8.5-10.1); CHLORIDE 103 MMOL/L (99-107); CREATININE 0.74 MG/DL (0.60-1.10); GLUCOSE 111 MG/DL (70-104); POTASSIUM 4.2 MMOL/L (3.5-5.1); SODIUM 140 MMOL/L (135-145); TOTAL CARBON DIOXIDE 29.5 MMOL/L (24-32); eGFR > 90 ML/MIN
[2021-09-05 11:00] VITALS: BP 145/92
--- NOTE | 2021-09-05 17:31 | NUR ---
FC DC'd at 1725. 100cc's clear yellow urine drained, pt tolerated well. Education provided regarding post FC removal, urinal provided. Pt states understanding and willingness to comply.
[2021-09-05 18:00] VITALS: BP 146/91
--- NOTE | 2021-09-05 18:19 | NUR ---
Problems reprioritized. Patient report given, questions answered & plan of care reviewed with MURPHY Kim.
[2021-09-05 22:00] VITALS: BP 116/71
[2021-09-05] MEDS: atorvastatin 10mg tablet PO SCH (22:26)
[2021-09-05] MEDS: sennosides/docusate sodium tablet PO PRN (22:26)
[2021-09-06 02:00] VITALS: BP 145/81
[2021-09-06 06:00] VITALS: BP 131/77
--- NOTE | 2021-09-06 06:43 | NUR ---
Patient in room PCU 3009. I have received report from MURPHY Kim and had the opportunity to ask questions and assume patient care.
[2021-09-06 07:50] LABS: BASOPHILS # (AUTO) 0.1 X10'3 (0-0.2); BASOPHILS % (AUTO) 0.8 % (0-1); EOSINOPHILS # (AUTO) 0.1 X10'3 (0-0.9); EOSINOPHILS % (AUTO) 0.6 % (0-6); HEMATOCRIT 44.2 % (42.0-52.0); HEMOGLOBIN 14.7 g/dl (14.0-17.9); LYMPHOCYTES # (AUTO) 1.4 X10'3 (1.1-4.8); LYMPHOCYTES % (AUTO) 11.1 % (21-51); MEAN CORPUSCULAR HGB CONC 33.3 g/dL (33.0-36.5); MEAN PLATELET VOLUME 10.6 FL (7.4-10.4); MONOCYTES # (AUTO) 0.5 X10'3 (0-0.9); MONOCYTES % (AUTO) 3.9 % (2-12); NEUTROPHILS # (AUTO) 10.5 X10'3 (1.8-7.7); NEUTROPHILS % (AUTO) 83.6 % (42-75); PLATELET COUNT 213 X10'3 (140-440); RED BLOOD COUNT 4.76 X10'6 (4.70-6.10); RED CELL DISTRIBUTION WIDTH 14.8 % (11.5-14.5); WHITE BLOOD COUNT 12.5 X10'3 (4.5-11.0)
[2021-09-06 07:52] LABS: ALBUMIN 2.4 G/DL (3.4-5.0); ANION GAP 10 (8-16); BLOOD UREA NITROGEN 16 MG/DL (7-18); BUN/CREATININE RATIO 18.2 (5.4-32.0); CALCIUM 8.1 MG/DL (8.5-10.1); CHLORIDE 104 MMOL/L (99-107); CREATININE 0.88 MG/DL (0.60-1.10); GLUCOSE 103 MG/DL (70-104); POTASSIUM 3.9 MMOL/L (3.5-5.1); SODIUM 140 MMOL/L (135-145); TOTAL CARBON DIOXIDE 26.2 MMOL/L (24-32); eGFR 88 ML/MIN
[2021-09-06] MEDS: pantoprazole 40mg Tablet.DR PO SCH (07:52)
[2021-09-06] MEDS: magnesium Cl slow-release 64mg tablet PO SCH ×2 (07:52→19:38)
[2021-09-06] MEDS: carVEDilol 3.125mg tablet PO SCH ×2 (07:52→19:38)
[2021-09-06] MEDS: furosemide 40mg/4ml inj IV SCH (07:52)
[2021-09-06] MEDS: apixaban 5mg tablet PO SCH ×2 (07:52→19:39)
[2021-09-06] MEDS: aspirin 81mg tab.chew PO SCH (07:52)
[2021-09-06] MEDS: potassium Cl 20 mEq SR tablet PO SCH ×2 (07:52→19:37)
[2021-09-06] MEDS: amiodarone 200mg tablet PO SCH ×2 (07:52→19:37)
[2021-09-06 11:00] VITALS: BP 129/86
[2021-09-06] MEDS ORDERED: lisinopril 2.5mg tablet PO SCH (13:55)
[2021-09-06 15:00] VITALS: BP 132/88
[2021-09-06] MEDS ORDERED: furosemide 20 MG/2 ML vial IV ONE (17:15)
[2021-09-06 18:00] VITALS: BP 146/98
--- NOTE | 2021-09-06 18:42 | NUR ---
Problems reprioritized. Patient report given, questions answered & plan of care reviewed with MURPHY Linares.
--- NOTE | 2021-09-06 18:57 | NUR ---
Patient in room U 3009. I have received report from MURPHY MOLINA and had the opportunity to ask questions and assume patient care. Addendum: 09/06/21 at 1857 by Milagros Nolasco RN Amended: Links added.
[2021-09-06] MEDS: furosemide 40mg tablet PO SCH (19:38)
[2021-09-06] MEDS: CefTRIAXone 2gm/D5W 50ml BAG 50 ML IV SCH (19:39)
[2021-09-06] MEDS: albuterol 2.5 MG/3 ML nebule NEB PRN (19:54)
[2021-09-06] MEDS: atorvastatin 10mg tablet PO SCH (20:03)
[2021-09-06 22:00] VITALS: BP 131/83
[2021-09-07 02:00] VITALS: BP 126/81
[2021-09-07 06:00] VITALS: BP 133/87
[2021-09-07 06:13] LABS: ALBUMIN 2.3 G/DL (3.4-5.0); ANION GAP 9 (8-16); BASOPHILS # (AUTO) 0.1 X10'3 (0-0.2); BASOPHILS % (AUTO) 1.1 % (0-1); BLOOD UREA NITROGEN 17 MG/DL (7-18); BUN/CREATININE RATIO 17.2 (5.4-32.0); CALCIUM 8.2 MG/DL (8.5-10.1); CHLORIDE 103 MMOL/L (99-107); CREATININE 0.99 MG/DL (0.60-1.10); EOSINOPHILS # (AUTO) 0.1 X10'3 (0-0.9); EOSINOPHILS % (AUTO) 0.8 % (0-6); GLUCOSE 110 MG/DL (70-104); HEMATOCRIT 45.5 % (42.0-52.0); HEMOGLOBIN 15.2 g/dl (14.0-17.9); LYMPHOCYTES # (AUTO) 1.8 X10'3 (1.1-4.8); LYMPHOCYTES % (AUTO) 17.7 % (21-51); MEAN CORPUSCULAR HEMOGLOBIN 30.9 PG (27.0-31.0); MEAN CORPUSCULAR HGB CONC 33.4 g/dL (33.0-36.5); MEAN CORPUSCULAR VOLUME 92.5 FL (78-98); MEAN PLATELET VOLUME 9.8 FL (7.4-10.4); MONOCYTES # (AUTO) 0.7 X10'3 (0-0.9); NEUTROPHILS # (AUTO) 7.5 X10'3 (1.8-7.7); NEUTROPHILS % (AUTO) 73.4 % (42-75); PLATELET COUNT 241 X10'3 (140-440); RED BLOOD COUNT 4.93 X10'6 (4.70-6.10); RED CELL DISTRIBUTION WIDTH 15.4 % (11.5-14.5); SODIUM 137 MMOL/L (135-145); TOTAL CARBON DIOXIDE 25.5 MMOL/L (24-32); WHITE BLOOD COUNT 10.3 X10'3 (4.5-11.0); eGFR 77 ML/MIN
--- NOTE | 2021-09-07 06:35 | NUR ---
Problems reprioritized. Patient report given, questions answered & plan of care reviewed with MURPHY MILLIGAN. Addendum: 09/07/21 at 0635 by Milagros Nolasco RN Amended: Links added.
--- NOTE | 2021-09-07 07:35 | NUR ---
PAGER ID: [phone] MESSAGE: Paweljesus Dunaway [phone] Pt has converted into afib/ flutter w/ controlled rate in 70s-100s. Already has coreg and amiodarone ordered which I will give soon. Ally [id number]
[2021-09-07] MEDS: magnesium Cl slow-release 64mg tablet PO SCH ×2 (07:47→20:21)
[2021-09-07] MEDS: potassium Cl 20 mEq SR tablet PO SCH ×2 (07:47→20:21)
[2021-09-07] MEDS: pantoprazole 40mg Tablet.DR PO SCH (07:47)
[2021-09-07] MEDS: amiodarone 200mg tablet PO SCH ×2 (07:47→20:21)
[2021-09-07] MEDS: furosemide 40mg tablet PO SCH ×2 (07:47→20:21)
[2021-09-07] MEDS: CefTRIAXone 2gm/D5W 50ml BAG 50 ML IV SCH (07:47)
[2021-09-07] MEDS: aspirin 81mg tab.chew PO SCH (07:47)
[2021-09-07] MEDS: carVEDilol 3.125mg tablet PO SCH ×2 (07:47→20:21)
[2021-09-07] MEDS: apixaban 5mg tablet PO SCH ×2 (07:47→20:21)
[2021-09-07 09:45] VITALS: BP 134/90
[2021-09-07] MEDS: lisinopril 5mg tablet PO SCH (09:48)
[2021-09-07 10:00] VITALS: BP 134/89
--- NOTE | 2021-09-07 10:05 | NUR ---
Reassessment: Pt continues eating well on no concentrated sweets diet, documented with mostly 75-100% PO intake meeting estimated nutrient needs. [facility] 09/06, receiving bowel care PRN. No nutrition intervention implemented at this time. Will continue to follow. Recommendations: 1. Continue NCS diet 2. Routine bowel care 3. Daily scaled weights per rx Addendum: 09/07/21 at [address] Amended: Links added.
--- NOTE | 2021-09-07 18:11 | NUR ---
GAVE REPORT TO BEAR ARRINGTON.
[2021-09-07 18:30] VITALS: BP 134/91
[2021-09-07] MEDS: atorvastatin 10mg tablet PO SCH (20:21)
[2021-09-07 22:00] VITALS: BP 125/81
[2021-09-08 02:00] VITALS: BP 113/68
[2021-09-08 06:43] LABS: ALBUMIN 2.5 G/DL (3.4-5.0); ANION GAP 9 (8-16); BLOOD UREA NITROGEN 20 MG/DL (7-18); CALCIUM 8.2 MG/DL (8.5-10.1); CHLORIDE 105 MMOL/L (99-107); GLUCOSE 102 MG/DL (70-104); POTASSIUM 4.3 MMOL/L (3.5-5.1); SODIUM 140 MMOL/L (135-145); eGFR 76 ML/MIN
[2021-09-08 07:08] VITALS: BP 125/88
[2021-09-08] MEDS: apixaban 5mg tablet PO SCH ×2 (07:37→19:30)
[2021-09-08] MEDS: aspirin 81mg tab.chew PO SCH (07:38)
[2021-09-08] MEDS: amiodarone 200mg tablet PO SCH ×2 (07:38→19:29)
[2021-09-08] MEDS: lisinopril 5mg tablet PO SCH (07:38)
[2021-09-08] MEDS: furosemide 40mg tablet PO SCH ×2 (07:38→19:30)
[2021-09-08] MEDS: potassium Cl 20 mEq SR tablet PO SCH ×2 (07:38→19:30)
[2021-09-08] MEDS: magnesium Cl slow-release 64mg tablet PO SCH ×2 (07:38→19:30)
[2021-09-08] MEDS: pantoprazole 40mg Tablet.DR PO SCH (07:38)
[2021-09-08] MEDS: carVEDilol 3.125mg tablet PO SCH ×2 (07:38→19:29)
[2021-09-08] MEDS: acetaminophen 325mg tablet PO PRN ×2 (07:39→19:29)
[2021-09-08] MEDS: CefTRIAXone 2gm/D5W 50ml BAG 50 ML IV SCH (07:39)
[2021-09-08 11:26] VITALS: BP 118/83
[2021-09-08] MEDS ORDERED: furosemide 40mg/4ml inj IV ONE (12:30)
--- NOTE | 2021-09-08 12:31 | NUR ---
PEDIATRIC RN AWARE OF KIDNEY FX AND K LEVEL WHEN ORDERING LASIX.
[2021-09-08 15:14] VITALS: BP 116/77
[2021-09-08 18:00] VITALS: BP 130/86
--- NOTE | 2021-09-08 18:10 | NUR ---
GAVE REPORT TO TYRONE ARRINGTON.
[2021-09-08] MEDS: atorvastatin 10mg tablet PO SCH (20:42)
[2021-09-08 22:00] VITALS: BP 120/80
[2021-09-09] VITALS (7 sets, daily range): BP systolic 101–130; BP diastolic 61–83
[2021-09-09] MEDS: acetaminophen 325mg tablet PO PRN ×2 (03:05→23:41)
--- NOTE | 2021-09-09 06:18 | NUR ---
Problems reprioritized. Patient report given, questions answered & plan of care reviewed with MURPHY Canales.
[2021-09-09 07:09] LABS: ALBUMIN 2.5 G/DL (3.4-5.0); ANION GAP 11 (8-16); BLOOD UREA NITROGEN 23 MG/DL (7-18); BUN/CREATININE RATIO 21.9 (5.4-32.0); CALCIUM 8.1 MG/DL (8.5-10.1); CHLORIDE 105 MMOL/L (99-107); CREATININE 1.05 MG/DL (0.60-1.10); GLUCOSE 106 MG/DL (70-104); POTASSIUM 4.4 MMOL/L (3.5-5.1); SODIUM 138 MMOL/L (135-145); TOTAL CARBON DIOXIDE 22.1 MMOL/L (24-32); eGFR 72 ML/MIN
[2021-09-09] MEDS: pantoprazole 40mg Tablet.DR PO SCH (08:06)
[2021-09-09] MEDS: apixaban 5mg tablet PO SCH ×2 (08:06→20:05)
[2021-09-09] MEDS: amiodarone 200mg tablet PO SCH ×2 (08:06→20:06)
[2021-09-09] MEDS: lisinopril 5mg tablet PO SCH (08:06)
[2021-09-09] MEDS: aspirin 81mg tab.chew PO SCH (08:06)
[2021-09-09] MEDS: carVEDilol 3.125mg tablet PO SCH ×2 (08:06→20:05)
[2021-09-09] MEDS: magnesium Cl slow-release 64mg tablet PO SCH ×2 (08:06→20:05)
[2021-09-09] MEDS: furosemide 40mg tablet PO SCH ×2 (08:06→20:05)
[2021-09-09] MEDS: CefTRIAXone 2gm/D5W 50ml BAG 50 ML IV SCH (08:07)
[2021-09-09] MEDS: potassium Cl 20 mEq SR tablet PO SCH ×2 (08:12→20:05)
[2021-09-09 08:53] LABS: BASOPHILS # (AUTO) 0.1 X10'3 (0-0.2); BASOPHILS % (AUTO) 0.5 % (0-1); EOSINOPHILS # (AUTO) 0.1 X10'3 (0-0.9); EOSINOPHILS % (AUTO) 0.6 % (0-6); HEMATOCRIT 46.1 % (42.0-52.0); HEMOGLOBIN 15.2 g/dl (14.0-17.9); LYMPHOCYTES # (AUTO) 1.7 X10'3 (1.1-4.8); LYMPHOCYTES % (AUTO) 11.4 % (21-51); MEAN CORPUSCULAR HEMOGLOBIN 30.8 PG (27.0-31.0); MEAN CORPUSCULAR VOLUME 93.3 FL (78-98); MEAN PLATELET VOLUME 10.2 FL (7.4-10.4); MONOCYTES # (AUTO) 1.4 X10'3 (0-0.9); MONOCYTES % (AUTO) 9.3 % (2-12); NEUTROPHILS # (AUTO) 11.6 X10'3 (1.8-7.7); NEUTROPHILS % (AUTO) 78.2 % (42-75); PLATELET COUNT 306 X10'3 (140-440); RED BLOOD COUNT 4.94 X10'6 (4.70-6.10); RED CELL DISTRIBUTION WIDTH 14.9 % (11.5-14.5); WHITE BLOOD COUNT 14.9 X10'3 (4.5-11.0)
--- NOTE | 2021-09-09 14:00 | NUR ---
Called cardiac rehab- [id number]. They are aware that cardiac rehab ordered for this pt. and will f/u with pt. after discharge.
--- NOTE | 2021-09-09 18:03 | NUR ---
Gave report to Nora ARRINGTON.
[2021-09-09] MEDS: atorvastatin 10mg tablet PO SCH (20:05)
[2021-09-10 02:00] VITALS: BP 122/78
[2021-09-10 05:57] LABS: BASOPHILS # (AUTO) 0.1 X10'3 (0-0.2); BASOPHILS % (AUTO) 0.9 % (0-1); EOSINOPHILS # (AUTO) 0.1 X10'3 (0-0.9); EOSINOPHILS % (AUTO) 0.5 % (0-6); HEMATOCRIT 46.1 % (42.0-52.0); HEMOGLOBIN 15.4 g/dl (14.0-17.9); LYMPHOCYTES # (AUTO) 1.5 X10'3 (1.1-4.8); LYMPHOCYTES % (AUTO) 8.9 % (21-51); MEAN CORPUSCULAR HEMOGLOBIN 30.7 PG (27.0-31.0); MEAN CORPUSCULAR HGB CONC 33.3 g/dL (33.0-36.5); MEAN CORPUSCULAR VOLUME 92.1 FL (78-98); MEAN PLATELET VOLUME 9.2 FL (7.4-10.4); MONOCYTES # (AUTO) 1.5 X10'3 (0-0.9); MONOCYTES % (AUTO) 8.8 % (2-12); NEUTROPHILS # (AUTO) 13.6 X10'3 (1.8-7.7); NEUTROPHILS % (AUTO) 80.9 % (42-75); PLATELET COUNT 316 X10'3 (140-440); RED BLOOD COUNT 5.01 X10'6 (4.70-6.10); RED CELL DISTRIBUTION WIDTH 15.2 % (11.5-14.5); WHITE BLOOD COUNT 16.8 X10'3 (4.5-11.0)
[2021-09-10 06:13] LABS: ALANINE AMINOTRANSFERASE 18 U/L (12-78); ALBUMIN 2.6 G/DL (3.4-5.0); ALBUMIN/GLOBULIN RATIO 0.6 (1.1-1.5); ALKALINE PHOSPHATASE 56 IU/L (46-116); ANION GAP 9 (8-16); ASPARTATE AMINO TRANSFERASE 19 U/L (10-37); BILIRUBIN,TOTAL 0.5 MG/DL (0.1-1.0); BLOOD UREA NITROGEN 25 MG/DL (7-18); BUN/CREATININE RATIO 21.7 (5.4-32.0); CALCIUM 8.5 MG/DL (8.5-10.1); CHLORIDE 105 MMOL/L (99-107); CREATININE 1.15 MG/DL (0.60-1.10); GLUCOSE 102 MG/DL (70-104); POTASSIUM 4.7 MMOL/L (3.5-5.1); SODIUM 137 MMOL/L (135-145); TOTAL PROTEIN 6.7 G/DL (6.4-8.2); eGFR 65 ML/MIN
--- NOTE | 2021-09-10 06:15 | NUR ---
Patient in room PCU 3009. I have received report from Nora ARRINGTON and had the opportunity to ask questions and assume patient care.
--- NOTE | 2021-09-10 06:38 | NUR ---
Problems reprioritized. Patient report given, questions answered & plan of care reviewed with MURPHY Khalil.
[2021-09-10 07:00] VITALS: BP 109/73
[2021-09-10] MEDS: magnesium Cl slow-release 64mg tablet PO SCH ×2 (08:00→20:42)
[2021-09-10] MEDS: potassium Cl 20 mEq SR tablet PO SCH ×2 (08:00→20:42)
[2021-09-10] MEDS ORDERED: levoFLOXACIN-Levaquin 500mg/D5 100 ML IV ONE (08:40)
[2021-09-10 09:08] LABS: MAGNESIUM 1.9 MG/DL (1.5-2.4)
[2021-09-10] MEDS: amiodarone 200mg tablet PO SCH ×2 (10:10→20:41)
[2021-09-10] MEDS: aspirin 81mg tab.chew PO SCH (10:11)
[2021-09-10] MEDS: carVEDilol 3.125mg tablet PO SCH ×2 (10:11→20:42)
[2021-09-10] MEDS: apixaban 5mg tablet PO SCH ×2 (10:11→20:41)
[2021-09-10] MEDS: lisinopril 5mg tablet PO SCH (10:11)
[2021-09-10] MEDS: pantoprazole 40mg Tablet.DR PO SCH (10:11)
[2021-09-10 11:00] VITALS: BP 111/81
[2021-09-10 15:00] VITALS: BP 104/71
[2021-09-10] MEDS: vancomycin/NS 1 GM ADD-VANTAGE 250 ML IV SCH (16:25)
[2021-09-10] MEDS: cefepime 1GM/NS ADD-VANTAGE 100 ML IV SCH (16:25)
[2021-09-10 18:00] VITALS: BP 115/76
--- NOTE | 2021-09-10 18:08 | NUR ---
Patient in room PCU 3006U. I have received report from MURPHY Khalil and had the opportunity to ask questions and assume patient care.
[2021-09-10] MEDS ORDERED: furosemide 40mg tablet PO SCH (20:00)
[2021-09-10] MEDS: atorvastatin 10mg tablet PO SCH (20:41)
[2021-09-10] MEDS ORDERED: furosemide 20MG tablet PO SCH (20:42)
[2021-09-10 22:00] VITALS: BP 119/69
[2021-09-11] MEDS: cefepime 1GM/NS ADD-VANTAGE 100 ML IV SCH ×2 (00:57→09:17)
[2021-09-11 02:00] VITALS: BP 111/65
[2021-09-11] MEDS: vancomycin/NS 1 GM ADD-VANTAGE 250 ML IV SCH (04:11)
[2021-09-11 06:00] VITALS: BP 135/82
--- NOTE | 2021-09-11 06:46 | NUR ---
Problems reprioritized. Patient report given, questions answered & plan of care reviewed with MURPHY Bui.
--- NOTE | 2021-09-11 07:04 | NUR ---
Patient in room PCU 3009. I have received report from MURPHY Melendez and had the opportunity to ask questions and assume patient care.
[2021-09-11 07:48] LABS: BASOPHILS # (AUTO) 0.1 X10'3 (0-0.2); BASOPHILS % (AUTO) 0.4 % (0-1); EOSINOPHILS # (AUTO) 0.1 X10'3 (0-0.9); EOSINOPHILS % (AUTO) 0.5 % (0-6); HEMATOCRIT 42.6 % (42.0-52.0); HEMOGLOBIN 14.1 g/dl (14.0-17.9); LYMPHOCYTES # (AUTO) 1.3 X10'3 (1.1-4.8); LYMPHOCYTES % (AUTO) 7.9 % (21-51); MEAN CORPUSCULAR HEMOGLOBIN 30.5 PG (27.0-31.0); MEAN CORPUSCULAR VOLUME 92.4 FL (78-98); MEAN PLATELET VOLUME 8.8 FL (7.4-10.4); MONOCYTES # (AUTO) 1.5 X10'3 (0-0.9); MONOCYTES % (AUTO) 9.4 % (2-12); NEUTROPHILS # (AUTO) 13.5 X10'3 (1.8-7.7); NEUTROPHILS % (AUTO) 81.8 % (42-75); PLATELET COUNT 348 X10'3 (140-440); RED BLOOD COUNT 4.62 X10'6 (4.70-6.10); RED CELL DISTRIBUTION WIDTH 14.9 % (11.5-14.5); WHITE BLOOD COUNT 16.5 X10'3 (4.5-11.0)
[2021-09-11] MEDS ORDERED: levoFLOXACIN-Levaquin 250mg/D5 50 ML IV SCH (08:00)
[2021-09-11 08:14] LABS: ALANINE AMINOTRANSFERASE 15 U/L (12-78); ALBUMIN 2.5 G/DL (3.4-5.0); ALBUMIN/GLOBULIN RATIO 0.6 (1.1-1.5); ALKALINE PHOSPHATASE 53 IU/L (46-116); ANION GAP 11 (8-16); ASPARTATE AMINO TRANSFERASE 17 U/L (10-37); BILIRUBIN,TOTAL 0.5 MG/DL (0.1-1.0); BLOOD UREA NITROGEN 25 MG/DL (7-18); BUN/CREATININE RATIO 26.6 (5.4-32.0); CALCIUM 8.3 MG/DL (8.5-10.1); CHLORIDE 106 MMOL/L (99-107); CREATININE 0.94 MG/DL (0.60-1.10); GLUCOSE 101 MG/DL (70-104); POTASSIUM 4.6 MMOL/L (3.5-5.1); SODIUM 139 MMOL/L (135-145); TOTAL CARBON DIOXIDE 21.9 MMOL/L (24-32); TOTAL PROTEIN 6.6 G/DL (6.4-8.2); eGFR 82 ML/MIN
[2021-09-11] MEDS: aspirin 81mg tab.chew PO SCH (09:17)
[2021-09-11] MEDS: carVEDilol 3.125mg tablet PO SCH (09:18)
[2021-09-11] MEDS: lisinopril 5mg tablet PO SCH (09:18)
[2021-09-11] MEDS: apixaban 5mg tablet PO SCH (09:18)
[2021-09-11] MEDS: magnesium Cl slow-release 64mg tablet PO SCH (09:18)
[2021-09-11] MEDS: amiodarone 200mg tablet PO SCH (09:18)
[2021-09-11] MEDS: pantoprazole 40mg Tablet.DR PO SCH (09:19)
[2021-09-11] MEDS: potassium Cl 20 mEq SR tablet PO SCH (09:19)
--- NOTE | 2021-09-11 09:27 | NUR ---
Reassessment: Pt continues eating well with mostly 100% PO intake meeting estimated nutrient needs. [facility] 09/10. No nutrition intervention implemented at this time. Will continue to follow. Recommendations: 1. Continue NCS diet 2. Routine bowel care 3. Daily scaled weights per rx Addendum: 09/11/21 at [address] Amended: Links added.
[2021-09-11] MEDS ORDERED: SPIR25TA5 PO (10:27)
[2021-09-11] MEDS ORDERED: CARV6.253 PO (10:27)
[2021-09-11] MEDS ORDERED: LISI5TAB22 PO (10:27)
[2021-09-11] MEDS ORDERED: ASPI-920 PO (10:27)
[2021-09-11] MEDS ORDERED: FURO20TA4 PO (10:27)
[2021-09-11] MEDS ORDERED: LEVO750T46 PO (10:27)
[2021-09-11] MEDS ORDERED: AMIO200T67 PO (10:27)
[2021-09-11] MEDS ORDERED: NICO-687 TOP (10:27)
[2021-09-11] MEDS ORDERED: APIX5TAB3 PO (10:27)
[2021-09-11] MEDS ORDERED: ATOR20TA PO (10:27)
[2021-09-11] MEDS ORDERED: NALT50TA PO (10:29)
[2021-09-11 11:00] VITALS: BP 132/85
--- NOTE | 2021-09-11 15:35 | NUR ---
Pt accepted into Respite program. DC via cab to Pharmacy then to [facility] for 6 weeks while recovering from surgery. Pt verbalized understanding of program and agreeable to it. Tele DC'd and returned to monitor room. Pt taken to lobby via WC to await his cab under the supervision of the front desk manager RN.
[2021-09-12] MEDS ORDERED: VANCOMYCIN LEVEL IV ONE (03:30)
== END 2021-09-11 15:35 | disposition home or self-care (01) | DRG 165 ==
LOC: ER 08:08 → ED HOLD 12:57 → CICU 2S 08-23 14:54 → PCU 3S 08-30 16:12 → CICU 2S 08-31 11:25 → PCU 3S 09-04 15:46
PROVIDERS: ADMIT Family Medicine; ATTEND Family Medicine
PROC: 4A023N8 Measurement of Cardiac Sampling and Pressure, Bilateral, Percutaneous Approach (ICD-10-PCS; 2021-08-23)
PROC: B2111ZZ Fluoroscopy of Multiple Coronary Arteries using Low Osmolar Contrast (ICD-10-PCS; 2021-08-23)
PROC: B2151ZZ Fluoroscopy of Left Heart using Low Osmolar Contrast (ICD-10-PCS; 2021-08-23)
PROC: B31N1ZZ Fluoroscopy of Other Upper Arteries using Low Osmolar Contrast (ICD-10-PCS; 2021-08-23)
PROC: 02100Z9 Bypass Coronary Artery, One Artery from Left Internal Mammary, Open Approach (ICD-10-PCS; 2021-08-28)
PROC: 5A1221Z Performance of Cardiac Output, Continuous (ICD-10-PCS; 2021-08-28)
PROC: 0W993ZZ Drainage of Right Pleural Cavity, Percutaneous Approach (ICD-10-PCS; principal; 2021-08-29)
PROC: 5A0935A Assistance with Respiratory Ventilation, Less than 24 Consecutive Hours, High Flow/Velocity Cannula (ICD-10-PCS; 2021-08-30)
PROC: 5A09357 Assistance with Respiratory Ventilation, Less than 24 Consecutive Hours, Continuous Positive Airway Pressure (ICD-10-PCS; 2021-08-31)
PROC: 5A0935A Assistance with Respiratory Ventilation, Less than 24 Consecutive Hours, High Flow/Velocity Cannula (ICD-10-PCS; 2021-08-31)
PROC: 5A09357 Assistance with Respiratory Ventilation, Less than 24 Consecutive Hours, Continuous Positive Airway Pressure (ICD-10-PCS; 2021-09-01)
PROC: 5A0935A Assistance with Respiratory Ventilation, Less than 24 Consecutive Hours, High Flow/Velocity Cannula (ICD-10-PCS; 2021-09-01)
PROC: 5A09357 Assistance with Respiratory Ventilation, Less than 24 Consecutive Hours, Continuous Positive Airway Pressure (ICD-10-PCS; 2021-09-02)
PROC: 5A0935A Assistance with Respiratory Ventilation, Less than 24 Consecutive Hours, High Flow/Velocity Cannula (ICD-10-PCS; 2021-09-02)
PROC: 5A09357 Assistance with Respiratory Ventilation, Less than 24 Consecutive Hours, Continuous Positive Airway Pressure (ICD-10-PCS; 2021-09-03)
PROC: 5A0935A Assistance with Respiratory Ventilation, Less than 24 Consecutive Hours, High Flow/Velocity Cannula (ICD-10-PCS; 2021-09-03)
DX: I21.4 Non-ST elevation (NSTEMI) myocardial infarction (principal); J80 Acute respiratory distress syndrome; I50.23 Acute on chronic systolic (congestive) heart failure; E46 Unspecified protein-calorie malnutrition; J18.9 Pneumonia, unspecified organism; D69.6 Thrombocytopenia, unspecified; N17.9 Acute kidney failure, unspecified; I13.0 Hypertensive heart and chronic kidney disease with heart failure and stage 1 through stage 4 chronic kidney disease, or unspecified chronic kidney disease; I48.92 Unspecified atrial flutter; I51.3 Intracardiac thrombosis, not elsewhere classified; I47.1 Supraventricular tachycardia; I48.0 Paroxysmal atrial fibrillation; J44.0 Chronic obstructive pulmonary disease with (acute) lower respiratory infection; J91.8 Pleural effusion in other conditions classified elsewhere; I25.10 Atherosclerotic heart disease of native coronary artery without angina pectoris; Z20.822 Contact with and (suspected) exposure to COVID-19; G40.909 Epilepsy, unspecified, not intractable, without status epilepticus; F12.90 Cannabis use, unspecified, uncomplicated; F17.210 Nicotine dependence, cigarettes, uncomplicated; E78.00 Pure hypercholesterolemia, unspecified; F15.20 Other stimulant dependence, uncomplicated; N18.9 Chronic kidney disease, unspecified; I25.5 Ischemic cardiomyopathy; I95.9 Hypotension, unspecified; M19.90 Unspecified osteoarthritis, unspecified site; I25.2 Old myocardial infarction; Z59.00 Homelessness unspecified; Z79.01 Long term (current) use of anticoagulants; Z79.82 Long term (current) use of aspirin; Z91.19 Patient's noncompliance with other medical treatment and regimen; Z95.5 Presence of coronary angioplasty implant and graft; Z91.030 Bee allergy status; Z68.22 Body mass index [BMI] 22.0-22.9, adult; Z79.899 Other long term (current) drug therapy; Z71.51 Drug abuse counseling and surveillance of drug abuser; Z71.6 Tobacco abuse counseling
CPT/HCPCS: 32555; 36415; 36600; 71045; 71046; 71250; 76937; 80048; 80053; 80061; 80162; 80305; 81001; 81003; 82330; 82435; 82803; 82947; 82948; 83036; 83605; 83735; 83880; 84100; 84132; 84145; 84295; 84484; 85007; 85008; 85014; 85018; 85025; 85347; 85384; 85610; 85730; 86885; 86900; 86901; 86920; 87040; 87081; 87635; 87811; 93005; 93306; 93308; 93312; 93325; 93459; 93460; 93880; 93971; 94060; 94640; 94660; 94760; 96365; 96376; 97110; 97116; 97162; 97530; 97535; 99152; 99153; 99285; A4333; A4615; A4618; A4620; A5120; A6212; A6213; A6222; A6258; A6402; A6449; A7000; C1751; C1758; C1769; C1781; C1894; G0378; J0171; J0282; J0690; J0692; J0696; J1100; J1160; J1250; J1644; J1815; J1885; J1940; J1956; J2060; J2175; J2250; J2270; J2370; J2405; J2710; J2720; J3010; J3370; J3475; J3490; J7030; J7040; J7050; J7120; P9047; Q9967

== ENCOUNTER 2021-11-22 12:23 | Emergency (ER) | payer MEDICAID ==
[~2021-11-22] VITALS: Ht 172.7 cm; Wt 65.9 kg
[~2021-11-22 12:23] MED LIST changes: +AMIO200T67 PO; -AMOX-580 PO; +APIX5TAB3 PO; +ASPI-920 PO; -ASPI81TA53 PO; +ATOR20TA PO; -ATOR20TA66 PO; +FURO20TA4 PO; +NALT50TA PO; -NICO-687 TD; +NICO-687 TOP; -PRED20TA PO; -SPIR25TA PO; +SPIR25TA5 PO
[2021-11-22 15:59] VITALS: BP 130/75
== END 2021-11-22 16:06 | disposition home or self-care (01) ==
LOC: ER 12:24
DX: I95.9 Hypotension, unspecified (principal); I25.10 Atherosclerotic heart disease of native coronary artery without angina pectoris; E78.00 Pure hypercholesterolemia, unspecified; I10 Essential (primary) hypertension; I25.2 Old myocardial infarction; M19.90 Unspecified osteoarthritis, unspecified site; Z86.69 Personal history of other diseases of the nervous system and sense organs; Z87.01 Personal history of pneumonia (recurrent); Z98.890 Other specified postprocedural states; Z59.00 Homelessness unspecified; Z79.82 Long term (current) use of aspirin; Z79.899 Other long term (current) drug therapy
CPT/HCPCS: 99283

== ENCOUNTER 2023-07-12 17:24 | Emergency (ER) | payer MEDICAID ==
[~2023-07-12] VITALS: Ht 172.7 cm; Wt 70.0 kg
[2023-07-12] MEDS: normal saline 1000ML IV soln IVB ONE (18:18)
[2023-07-12 19:16] LABS: BASOPHILS # (AUTO) 0.1 X10'3 (0-0.2); BASOPHILS % (AUTO) 0.9 % (0-1); EOSINOPHILS # (AUTO) 0.1 X10'3 (0-0.9); EOSINOPHILS % (AUTO) 0.6 % (0-6); HEMATOCRIT 38.4 % (42.0-52.0); HEMOGLOBIN 12.7 g/dl (14.0-17.9); LYMPHOCYTES % (AUTO) 9.5 % (21-51); MEAN CORPUSCULAR HEMOGLOBIN 30.7 PG (27.0-31.0); MEAN CORPUSCULAR HGB CONC 33.1 g/dL (33.0-36.5); MEAN CORPUSCULAR VOLUME 92.7 FL (78-98); MEAN PLATELET VOLUME 8.7 FL (7.4-10.4); MONOCYTES # (AUTO) 0.5 X10'3 (0-0.9); MONOCYTES % (AUTO) 5.2 % (2-12); NEUTROPHILS # (AUTO) 8.9 X10'3 (1.8-7.7); NEUTROPHILS % (AUTO) 83.8 % (42-75); PLATELET COUNT 146 X10'3 (140-440); RED BLOOD COUNT 4.15 X10'6 (4.70-6.10); RED CELL DISTRIBUTION WIDTH 14.9 % (11.5-14.5); WHITE BLOOD COUNT 10.6 X10'3 (4.5-11.0)
[2023-07-12 19:25] LABS: ALANINE AMINOTRANSFERASE 6 U/L (12-78); ALBUMIN 2.8 G/DL (3.4-5.0); ALBUMIN/GLOBULIN RATIO 0.8 (1.1-1.5); ALKALINE PHOSPHATASE 46 IU/L (46-116); ANION GAP 13 (8-16); ASPARTATE AMINO TRANSFERASE 25 U/L (10-37); BILIRUBIN,TOTAL 0.3 MG/DL (0.1-1.0); BLOOD UREA NITROGEN 11 MG/DL (7-18); BUN/CREATININE RATIO 14.5 (10.0-20.0); CHLORIDE 105 MMOL/L (99-107); CREATININE 0.76 MG/DL (0.60-1.10); GLUCOSE 119 MG/DL (70-104); SODIUM 141 MMOL/L (135-145); TOTAL CARBON DIOXIDE 23.3 MMOL/L (24-32); TOTAL PROTEIN 6.5 G/DL (6.4-8.2); eCRCL 96 ML/MIN; eGFR > 90 ML/MIN
[2023-07-12 19:28] LABS: ETHANOL 61 MG/DL (<10); LIPASE 16 U/L (16-77)
[2023-07-12 19:30] LABS: POTASSIUM 3.8 MMOL/L (3.5-5.1)
[2023-07-12 20:27] LABS: URINE AMPHETAMINE SCREEN NEGATIVE (Neg)
[2023-07-12 20:28] LABS: URINE BARBITUATE SCREEN NEGATIVE (Neg); URINE BENZODIAZEPINES SCREEN NEGATIVE (Neg); URINE CANNABINOID SCREEN POSITIVE (Neg); URINE COCAINE SCREEN NEGATIVE (Neg); URINE METHADONE SCREEN NEGATIVE (Neg); URINE PHENCYCLIDINE SCREEN NEGATIVE (Neg)
[2023-07-12 22:07] VITALS: BP 110/64; PULSE 74; RESP 20; TEMP 97.9; O2SAT 97
== END 2023-07-12 22:10 | disposition home or self-care (01) ==
LOC: ER 17:25
DX: R42 Dizziness and giddiness (principal); I25.10 Atherosclerotic heart disease of native coronary artery without angina pectoris; E78.00 Pure hypercholesterolemia, unspecified; I10 Essential (primary) hypertension; I25.2 Old myocardial infarction; J44.9 Chronic obstructive pulmonary disease, unspecified; M19.90 Unspecified osteoarthritis, unspecified site; Z98.890 Other specified postprocedural states; Z95.1 Presence of aortocoronary bypass graft; F17.200 Nicotine dependence, unspecified, uncomplicated; Z59.00 Homelessness unspecified; Z79.82 Long term (current) use of aspirin; Z79.899 Other long term (current) drug therapy
CPT/HCPCS: 36415; 70450; 71045; 80053; 80305; 80320; 83690; 84484; 85025; 93005; 96360; 99285; J7030

== ENCOUNTER 2023-08-06 10:54 | Emergency (ER) | payer MEDICAID ==
[~2023-08-06] VITALS: Ht 175.3 cm; Wt 80.0 kg
[2023-08-06 10:55] VITALS: TEMP 98.3
[2023-08-06 11:41] VITALS: BP 109/71; PULSE 90; O2SAT 92
[2023-08-06 11:50] LABS: BASOPHILS % (AUTO) 0.6 % (0-1); EOSINOPHILS # (AUTO) 0.3 X10'3 (0-0.9); EOSINOPHILS % (AUTO) 4.3 % (0-6); HEMATOCRIT 39.3 % (42.0-52.0); LYMPHOCYTES # (AUTO) 2.2 X10'3 (1.1-4.8); LYMPHOCYTES % (AUTO) 30.7 % (21-51); MEAN CORPUSCULAR HEMOGLOBIN 30.6 PG (27.0-31.0); MEAN CORPUSCULAR HGB CONC 33.1 g/dL (33.0-36.5); MEAN CORPUSCULAR VOLUME 92.4 FL (78-98); MEAN PLATELET VOLUME 8.2 FL (7.4-10.4); MONOCYTES # (AUTO) 0.5 X10'3 (0-0.9); MONOCYTES % (AUTO) 7.7 % (2-12); NEUTROPHILS % (AUTO) 56.7 % (42-75); PLATELET COUNT 146 X10'3 (140-440); RED BLOOD COUNT 4.25 X10'6 (4.70-6.10); RED CELL DISTRIBUTION WIDTH 15.3 % (11.5-14.5)
[2023-08-06 12:01] LABS: ALBUMIN 3.2 G/DL (3.4-5.0); ANION GAP 9 (8-16); BLOOD UREA NITROGEN 8 MG/DL (7-18); BUN/CREATININE RATIO 10.4 (10.0-20.0); CHLORIDE 108 MMOL/L (99-107); CREATININE 0.77 MG/DL (0.60-1.10); GLUCOSE 88 MG/DL (70-104); POTASSIUM 3.8 MMOL/L (3.5-5.1); PRO BRAIN NATRIURETIC PEPTIDE 664 PG/ML (0-125); SODIUM 145 MMOL/L (135-145); TOTAL CARBON DIOXIDE 28.1 MMOL/L (24-32); eCRCL 98 ML/MIN; eGFR > 90 ML/MIN
[2023-08-06 12:35] VITALS: RESP 20
== END 2023-08-06 13:59 | disposition home or self-care (01) ==
LOC: ER 10:54
DX: R07.89 Other chest pain (principal); E78.00 Pure hypercholesterolemia, unspecified; I10 Essential (primary) hypertension; J44.9 Chronic obstructive pulmonary disease, unspecified; M19.90 Unspecified osteoarthritis, unspecified site; Z79.899 Other long term (current) drug therapy; Z79.82 Long term (current) use of aspirin
CPT/HCPCS: 36415; 71045; 80048; 83880; 84484; 85025; 93005; 99285

== ENCOUNTER 2023-09-04 15:59 | Inpatient (IN) | payer MEDICAID ==
[~2023-09-04] VITALS: Ht 167.6 cm; Wt 70.5 kg
[~2023-09-04 15:59] MED LIST changes: -NALT50TA PO; +NALT50TA5 PO
[2023-09-04] MEDS: normal saline 1000ML IV soln IVB ONE (16:52)
[2023-09-04] MEDS: pantoprazole 40 MG vial IV ONE (16:53)
[2023-09-04] MEDS: morphine 4 MG/ML inj SYRINge IV ONE (16:53)
[2023-09-04] MEDS: ondansetron/PF 4mg/2ml inj IV ONE (16:53)
[2023-09-04] MEDS: TETanus/Pertussis (Acell)/Diphther VAC/PF (Tdap-Adult) 0.5ml syringe IMVAC ONE (17:09)
[2023-09-04 17:21] LABS: BASOPHILS % (AUTO) 0.3 % (0-1); EOSINOPHILS # (AUTO) 0.1 X10'3 (0-0.9); EOSINOPHILS % (AUTO) 1.3 % (0-6); HEMATOCRIT 44.3 % (42.0-52.0); HEMOGLOBIN 14.6 g/dl (14.0-17.9); LYMPHOCYTES # (AUTO) 0.9 X10'3 (1.1-4.8); LYMPHOCYTES % (AUTO) 7.8 % (21-51); MEAN CORPUSCULAR HEMOGLOBIN 31.7 PG (27.0-31.0); MEAN CORPUSCULAR HGB CONC 32.8 g/dL (33.0-36.5); MEAN CORPUSCULAR VOLUME 96.6 FL (78-98); MEAN PLATELET VOLUME 8.7 FL (7.4-10.4); MONOCYTES # (AUTO) 0.9 X10'3 (0-0.9); MONOCYTES % (AUTO) 7.9 % (2-12); NEUTROPHILS # (AUTO) 9.2 X10'3 (1.8-7.7); NEUTROPHILS % (AUTO) 82.7 % (42-75); PLATELET COUNT 185 X10'3 (140-440); RED BLOOD COUNT 4.59 X10'6 (4.70-6.10); RED CELL DISTRIBUTION WIDTH 16.6 % (11.5-14.5); WHITE BLOOD COUNT 11.2 X10'3 (4.5-11.0)
[2023-09-04 17:32] LABS: ALBUMIN 2.9 G/DL (3.4-5.0); ANION GAP 7 (8-16); BLOOD UREA NITROGEN 14 MG/DL (7-18); BUN/CREATININE RATIO 13.1 (10.0-20.0); C-REACTIVE PROTEIN 4.65 MG/DL (0.0-0.5); CALCIUM 8.4 MG/DL (8.5-10.1); CHLORIDE 102 MMOL/L (99-107); CREATININE 1.07 MG/DL (0.60-1.10); ETHANOL < 10 MG/DL (<10); GLUCOSE 92 MG/DL (70-104); LIPASE 27 U/L (16-77); MAGNESIUM 1.7 MG/DL (1.5-2.4); POTASSIUM 3.9 MMOL/L (3.5-5.1); SODIUM 135 MMOL/L (135-145); TOTAL CARBON DIOXIDE 25.9 MMOL/L (24-32); eCRCL 68 ML/MIN; eGFR 70 ML/MIN
[2023-09-04] MEDS ORDERED: iohexol 300mg/ml 100ml inj. ONE (17:37)
[2023-09-04] MEDS: piperacillin/tazo 4.5gm/100ml 100 ML IV ONE (19:14)
[2023-09-04] MEDS ORDERED: NO HOME MEDS (19:27)
[2023-09-04 19:54] LABS: BILIRUBIN,URINE NEGATIVE (Neg); CLARITY,URINE CLEAR (Clear); COLOR,URINE YELLOW (Yellow); GLUCOSE, URINE NEGATIVE (Neg); KETONES,URINE NEGATIVE (Neg); LEUKOCYTE ESTERASE ,URINE NEGATIVE (Neg); NITRITES, URINE NEGATIVE (Neg); OCCULT BLOOD,URINE NEGATIVE (Neg); PROTEIN,URINE NEGATIVE (Neg); UROBILINOGEN,URINE 0.2 E.U/dL (0.2-1.0)
[2023-09-04 19:56] LABS: UA COLLECTION TYPE CLN CATCH MIDSTREAM
[2023-09-04 20:06] LABS: URINE AMPHETAMINE SCREEN NEGATIVE (Neg); URINE BARBITUATE SCREEN NEGATIVE (Neg); URINE BENZODIAZEPINES SCREEN NEGATIVE (Neg); URINE CANNABINOID SCREEN POSITIVE (Neg); URINE COCAINE SCREEN NEGATIVE (Neg); URINE METHADONE SCREEN NEGATIVE (Neg); URINE OPIATE SCREEN POSITIVE (Neg); URINE PHENCYCLIDINE SCREEN NEGATIVE (Neg)
[2023-09-04] MEDS ORDERED: potassium Cl 40MEQ/1/2NS 520ml 520 ML IV PRN (21:05)
[2023-09-04] MEDS ORDERED: magnesium hydroxide 30ml (MOM) UD suspension PO PRN (21:05)
[2023-09-04] MEDS ORDERED: ondansetron/PF 4mg/2ml inj IV PRN (21:05)
[2023-09-04] MEDS ORDERED: magnesium sulf-water 4G/100mL 100 ML IV PRN (21:05)
[2023-09-04] MEDS ORDERED: potassium Cl 20 mEq SR tablet PO PRN ×2 (21:05)
[2023-09-04] MEDS ORDERED: magnesium sulf-water 2g/50mL 50 ML IV PRN (21:05)
[2023-09-04] MEDS ORDERED: magnesium Cl slow-release 64mg tablet PO PRN (21:05)
[2023-09-04 21:55] LABS: APTT 26 SECONDS (22-32); INR 1.1 INR; PROTHROMBIN TIME 11.9 SECONDS (9.0-12.0)
[2023-09-04] MEDS: ringers solution, lacted 1,000 ML IV SCH (22:40)
[2023-09-04] MEDS: nicotine 14mg patch - 24hr TD SCH (22:40)
[2023-09-04] MEDS: morphine 2 MG/ML inj. syringe IV PRN (22:41)
[2023-09-05 00:10] VITALS: BP 149/77; PULSE 74; RESP 17; TEMP 97.5; O2SAT 91
[2023-09-05] MEDS: piperacillin/tazo 3.375gm/50ml 50 ML IV SCH (01:36)
[2023-09-05 05:57] LABS: OCCULT BLOOD STOOL NEGATIVE (Neg)
[2023-09-05 06:00] VITALS: BP 137/83; PULSE 82; RESP 16; TEMP 97.7; O2SAT 96
[2023-09-05 06:46] LABS: BASOPHILS % (AUTO) 0.7 % (0-1); EOSINOPHILS # (AUTO) 0.3 X10'3 (0-0.9); EOSINOPHILS % (AUTO) 4.7 % (0-6); HEMATOCRIT 42.2 % (42.0-52.0); LYMPHOCYTES # (AUTO) 1.2 X10'3 (1.1-4.8); LYMPHOCYTES % (AUTO) 18.7 % (21-51); MEAN CORPUSCULAR HEMOGLOBIN 32.1 PG (27.0-31.0); MEAN CORPUSCULAR HGB CONC 33.1 g/dL (33.0-36.5); MONOCYTES # (AUTO) 0.8 X10'3 (0-0.9); MONOCYTES % (AUTO) 12.9 % (2-12); NEUTROPHILS # (AUTO) 4.2 X10'3 (1.8-7.7); PLATELET COUNT 174 X10'3 (140-440); RED BLOOD COUNT 4.35 X10'6 (4.70-6.10); RED CELL DISTRIBUTION WIDTH 16.8 % (11.5-14.5); WHITE BLOOD COUNT 6.6 X10'3 (4.5-11.0)
[2023-09-05 06:57] LABS: ALANINE AMINOTRANSFERASE 13 U/L (12-78); ALBUMIN 2.3 G/DL (3.4-5.0); ALBUMIN/GLOBULIN RATIO 0.7 (1.1-1.5); ALKALINE PHOSPHATASE 42 IU/L (46-116); ANION GAP 5 (8-16); ASPARTATE AMINO TRANSFERASE 11 U/L (10-37); BILIRUBIN,TOTAL 0.3 MG/DL (0.1-1.0); BLOOD UREA NITROGEN 9 MG/DL (7-18); BUN/CREATININE RATIO 9.7 (10.0-20.0); CHLORIDE 107 MMOL/L (99-107); CHOL/HDL RATIO 2.8 (0.00-4.99); CHOLESTEROL 86 MG/DL (0-200); CREATININE 0.93 MG/DL (0.60-1.10); GLUCOSE 79 MG/DL (70-104); HDL CHOLESTEROL 31 MG/DL (35-60); LDL CHOLESTEROL 40 MG/DL (50-100); MAGNESIUM 1.8 MG/DL (1.5-2.4); PHOSPHORUS 3.3 MG/DL (2.3-4.5); POTASSIUM 3.6 MMOL/L (3.5-5.1); SODIUM 138 MMOL/L (135-145); TOTAL CARBON DIOXIDE 25.6 MMOL/L (24-32); TOTAL PROTEIN 5.5 G/DL (6.4-8.2); TRIGLYCERIDES 86 MG/DL (20-135); eCRCL 79 ML/MIN; eGFR 82 ML/MIN
[2023-09-05 07:32] LABS: HEMOGLOBIN A1C 5.2 % (4.5-6.2)
[2023-09-05 07:43] LABS: C DIFF ANTIGEN NEGATIVE (NEGATIVE); C DIFF SPECIMEN=DIARRHEA? ACCEPTABLE; C DIFFICILE TOXINS A&B NEGATIVE (Neg)
[2023-09-05 08:00] VITALS: RESP 16; O2SAT 96
[2023-09-05] MEDS: K and/or MAG REPLACEMENT MC SCH (08:00)
[2023-09-05 10:00] VITALS: BP 110/65; PULSE 68; RESP 16; TEMP 97.9; O2SAT 93
[2023-09-05] MEDS ORDERED: iohexol 350MG/ML 100ml bottle IV ONE (17:09)
[2023-09-05] MEDS ORDERED: iohexol 350 MG/ML 50ML vial IV ONE (17:09)
[2023-09-05 18:00] VITALS: BP 152/81; PULSE 69; RESP 16; TEMP 97.3; O2SAT 98
[2023-09-05] MEDS: diatr meglu/diatrizoate 30ml oral sol.-(3 dose) bottle PO SCH (21:32)
[2023-09-05 22:00] VITALS: BP 145/85; PULSE 67; RESP 18; TEMP 97.9; O2SAT 99
[2023-09-06 06:00] VITALS: BP 155/88; PULSE 73; RESP 18; TEMP 97.8; O2SAT 99
[2023-09-06] MEDS ORDERED: iohexol 300mg/ml 100ml inj. ONE (06:41)
[2023-09-06 06:42] LABS: BASOPHILS % (AUTO) 0.8 % (0-1); EOSINOPHILS # (AUTO) 0.3 X10'3 (0-0.9); EOSINOPHILS % (AUTO) 4.6 % (0-6); HEMATOCRIT 40.1 % (42.0-52.0); HEMOGLOBIN 13.6 g/dl (14.0-17.9); LYMPHOCYTES # (AUTO) 1.3 X10'3 (1.1-4.8); LYMPHOCYTES % (AUTO) 24.2 % (21-51); MEAN CORPUSCULAR HEMOGLOBIN 32.8 PG (27.0-31.0); MEAN CORPUSCULAR VOLUME 96.5 FL (78-98); MEAN PLATELET VOLUME 8.7 FL (7.4-10.4); MONOCYTES # (AUTO) 0.8 X10'3 (0-0.9); MONOCYTES % (AUTO) 14.3 % (2-12); NEUTROPHILS # (AUTO) 3.1 X10'3 (1.8-7.7); NEUTROPHILS % (AUTO) 56.1 % (42-75); PLATELET COUNT 182 X10'3 (140-440); RED BLOOD COUNT 4.15 X10'6 (4.70-6.10); RED CELL DISTRIBUTION WIDTH 17.1 % (11.5-14.5); WHITE BLOOD COUNT 5.5 X10'3 (4.5-11.0)
[2023-09-06 06:57] LABS: ALANINE AMINOTRANSFERASE 13 U/L (12-78); ALBUMIN 2.3 G/DL (3.4-5.0); ALBUMIN/GLOBULIN RATIO 0.7 (1.1-1.5); ALKALINE PHOSPHATASE 39 IU/L (46-116); ANION GAP 3 (8-16); ASPARTATE AMINO TRANSFERASE 9 U/L (10-37); BILIRUBIN,TOTAL 0.3 MG/DL (0.1-1.0); BLOOD UREA NITROGEN 9 MG/DL (7-18); BUN/CREATININE RATIO 9.8 (10.0-20.0); CALCIUM 7.9 MG/DL (8.5-10.1); CHLORIDE 106 MMOL/L (99-107); CREATININE 0.92 MG/DL (0.60-1.10); GLUCOSE 88 MG/DL (70-104); MAGNESIUM 1.6 MG/DL (1.5-2.4); POTASSIUM 3.8 MMOL/L (3.5-5.1); SODIUM 137 MMOL/L (135-145); TOTAL CARBON DIOXIDE 28.2 MMOL/L (24-32); TOTAL PROTEIN 5.5 G/DL (6.4-8.2); eCRCL 80 ML/MIN; eGFR 83 ML/MIN
[2023-09-06 10:00] VITALS: BP 146/78; PULSE 73; RESP 16; TEMP 98.3; O2SAT 99
[2023-09-06] MEDS ORDERED: nitroGLYCERIN 0.4mg SUBLingual tab SL PRN (12:35)
[2023-09-06] MEDS ORDERED: aminophylline 250mg/10ml inj. IV PRN (12:35)
[2023-09-06] MEDS ORDERED: metoprolol tartrate 1mg/ml inj IV PRN (12:35)
[2023-09-06] MEDS: metroNIDAZOLE 500mg tablet PO SCH (14:45)
[2023-09-06] MEDS: normal saline 1000ml 1,000 ML IV SCH (14:58)
[2023-09-06 18:00] VITALS: BP 149/91; PULSE 80; RESP 18; TEMP 97.9; O2SAT 98
[2023-09-06 20:00] VITALS: RESP 18; O2SAT 98
[2023-09-06] MEDS: magnesium hydroxide 30ml (MOM) UD suspension PO SCH (20:10)
[2023-09-06 22:00] VITALS: BP 128/63; PULSE 63; RESP 16; TEMP 98.1; O2SAT 98
[2023-09-07] VITALS (12 sets, daily range): BP systolic 111–150; BP diastolic 58–93; PULSE 60–99; RESP 14–20; TEMP 97.3–98.3; O2SAT 96–100
[2023-09-07 06:39] LABS: BASOPHILS % (AUTO) 0.9 % (0-1); EOSINOPHILS # (AUTO) 0.3 X10'3 (0-0.9); EOSINOPHILS % (AUTO) 5.2 % (0-6); HEMATOCRIT 40.4 % (42.0-52.0); HEMOGLOBIN 13.6 g/dl (14.0-17.9); LYMPHOCYTES # (AUTO) 1.5 X10'3 (1.1-4.8); LYMPHOCYTES % (AUTO) 29.3 % (21-51); MEAN CORPUSCULAR HEMOGLOBIN 32.4 PG (27.0-31.0); MEAN CORPUSCULAR HGB CONC 33.6 g/dL (33.0-36.5); MEAN CORPUSCULAR VOLUME 96.2 FL (78-98); MEAN PLATELET VOLUME 8.8 FL (7.4-10.4); MONOCYTES # (AUTO) 0.7 X10'3 (0-0.9); NEUTROPHILS # (AUTO) 2.7 X10'3 (1.8-7.7); NEUTROPHILS % (AUTO) 51.6 % (42-75); PLATELET COUNT 188 X10'3 (140-440); RED CELL DISTRIBUTION WIDTH 16.4 % (11.5-14.5); WHITE BLOOD COUNT 5.2 X10'3 (4.5-11.0)
[2023-09-07 07:00] LABS: ALANINE AMINOTRANSFERASE 13 U/L (12-78); ALBUMIN 2.2 G/DL (3.4-5.0); ALBUMIN/GLOBULIN RATIO 0.7 (1.1-1.5); ALKALINE PHOSPHATASE 36 IU/L (46-116); ANION GAP 4 (8-16); ASPARTATE AMINO TRANSFERASE 9 U/L (10-37); BILIRUBIN,TOTAL 0.3 MG/DL (0.1-1.0); BLOOD UREA NITROGEN 9 MG/DL (7-18); CHLORIDE 106 MMOL/L (99-107); GLUCOSE 87 MG/DL (70-104); MAGNESIUM 1.9 MG/DL (1.5-2.4); POTASSIUM 3.9 MMOL/L (3.5-5.1); SODIUM 138 MMOL/L (135-145); TOTAL CARBON DIOXIDE 28.5 MMOL/L (24-32); TOTAL PROTEIN 5.4 G/DL (6.4-8.2); eCRCL 81 ML/MIN; eGFR 85 ML/MIN
[2023-09-07] MEDS: regadenoson 0.4mg/5ml syringe IV PRN (09:47)
[2023-09-08 05:27] LABS: BASOPHILS # (AUTO) 0.1 X10'3 (0-0.2); BASOPHILS % (AUTO) 1.1 % (0-1); EOSINOPHILS # (AUTO) 0.3 X10'3 (0-0.9); EOSINOPHILS % (AUTO) 4.8 % (0-6); HEMATOCRIT 41.3 % (42.0-52.0); HEMOGLOBIN 13.6 g/dl (14.0-17.9); LYMPHOCYTES # (AUTO) 1.9 X10'3 (1.1-4.8); LYMPHOCYTES % (AUTO) 31.4 % (21-51); MEAN CORPUSCULAR HEMOGLOBIN 31.5 PG (27.0-31.0); MEAN CORPUSCULAR HGB CONC 32.9 g/dL (33.0-36.5); MEAN CORPUSCULAR VOLUME 95.7 FL (78-98); MEAN PLATELET VOLUME 8.4 FL (7.4-10.4); MONOCYTES # (AUTO) 0.8 X10'3 (0-0.9); MONOCYTES % (AUTO) 12.7 % (2-12); NEUTROPHILS # (AUTO) 2.9 X10'3 (1.8-7.7); PLATELET COUNT 196 X10'3 (140-440); RED BLOOD COUNT 4.31 X10'6 (4.70-6.10); RED CELL DISTRIBUTION WIDTH 16.5 % (11.5-14.5); WHITE BLOOD COUNT 5.9 X10'3 (4.5-11.0)
[2023-09-08 05:50] LABS: ANION GAP 1 (8-16); BILIRUBIN,TOTAL 0.3 MG/DL (0.1-1.0); BLOOD UREA NITROGEN 9 MG/DL (7-18); BUN/CREATININE RATIO 8.4 (10.0-20.0); CALCIUM 8.2 MG/DL (8.5-10.1); CHLORIDE 108 MMOL/L (99-107); CREATININE 1.07 MG/DL (0.60-1.10); GLUCOSE 83 MG/DL (70-104); MAGNESIUM 1.8 MG/DL (1.5-2.4); POTASSIUM 4.5 MMOL/L (3.5-5.1); SODIUM 140 MMOL/L (135-145); TOTAL PROTEIN 5.6 G/DL (6.4-8.2); eCRCL 68 ML/MIN; eGFR 70 ML/MIN
[2023-09-08 05:51] LABS: ALANINE AMINOTRANSFERASE 11 U/L (12-78); ALBUMIN 2.3 G/DL (3.4-5.0); ALBUMIN/GLOBULIN RATIO 0.7 (1.1-1.5); ALKALINE PHOSPHATASE 38 IU/L (46-116); ASPARTATE AMINO TRANSFERASE 12 U/L (10-37)
[2023-09-08 06:00] VITALS: BP 167/88; PULSE 52; RESP 18; TEMP 97; O2SAT 96
[2023-09-08 08:00] VITALS: RESP 16; O2SAT 98
[2023-09-08 10:00] VITALS: BP 141/84; PULSE 60; RESP 18; TEMP 97.9; O2SAT 98
[2023-09-08] MEDS: lisinopril 5mg tablet PO SCH (13:50)
[2023-09-08 18:00] VITALS: BP 126/77; PULSE 60; RESP 16; TEMP 97.9; O2SAT 99
[2023-09-08] MEDS: carVEDilol 3.125mg tablet PO SCH (19:29)
[2023-09-08] MEDS: atorvastatin 20mg tablet PO SCH (19:31)
[2023-09-08 20:12] VITALS: RESP 16; O2SAT 99
[2023-09-08 22:00] VITALS: BP 138/75; PULSE 59; RESP 16; TEMP 96.4; O2SAT 98
[2023-09-09 06:00] VITALS: BP 148/99; PULSE 75; RESP 18; TEMP 97.4; O2SAT 99
[2023-09-09 07:01] LABS: BASOPHILS # (AUTO) 0.1 X10'3 (0-0.2); BASOPHILS % (AUTO) 1.5 % (0-1); EOSINOPHILS # (AUTO) 0.3 X10'3 (0-0.9); EOSINOPHILS % (AUTO) 3.8 % (0-6); HEMATOCRIT 43.1 % (42.0-52.0); LYMPHOCYTES % (AUTO) 28.7 % (21-51); MEAN CORPUSCULAR HEMOGLOBIN 31.4 PG (27.0-31.0); MEAN CORPUSCULAR HGB CONC 32.5 g/dL (33.0-36.5); MEAN CORPUSCULAR VOLUME 96.7 FL (78-98); MEAN PLATELET VOLUME 8.9 FL (7.4-10.4); MONOCYTES # (AUTO) 0.7 X10'3 (0-0.9); MONOCYTES % (AUTO) 10.5 % (2-12); NEUTROPHILS # (AUTO) 3.8 X10'3 (1.8-7.7); NEUTROPHILS % (AUTO) 55.5 % (42-75); PLATELET COUNT 217 X10'3 (140-440); RED BLOOD COUNT 4.46 X10'6 (4.70-6.10); RED CELL DISTRIBUTION WIDTH 16.5 % (11.5-14.5); WHITE BLOOD COUNT 6.9 X10'3 (4.5-11.0)
[2023-09-09 07:05] LABS: ALANINE AMINOTRANSFERASE 17 U/L (12-78); ALBUMIN 2.5 G/DL (3.4-5.0); ALBUMIN/GLOBULIN RATIO 0.8 (1.1-1.5); ALKALINE PHOSPHATASE 35 IU/L (46-116); ANION GAP 2 (8-16); ASPARTATE AMINO TRANSFERASE 18 U/L (10-37); BILIRUBIN,TOTAL 0.2 MG/DL (0.1-1.0); BLOOD UREA NITROGEN 12 MG/DL (7-18); BUN/CREATININE RATIO 12.4 (10.0-20.0); CALCIUM 8.4 MG/DL (8.5-10.1); CHLORIDE 106 MMOL/L (99-107); CREATININE 0.97 MG/DL (0.60-1.10); GLUCOSE 96 MG/DL (70-104); POTASSIUM 4.7 MMOL/L (3.5-5.1); SODIUM 138 MMOL/L (135-145); TOTAL CARBON DIOXIDE 29.6 MMOL/L (24-32); TOTAL PROTEIN 5.7 G/DL (6.4-8.2); eCRCL 75 ML/MIN; eGFR 78 ML/MIN
[2023-09-09 08:00] VITALS: RESP 18; O2SAT 99
[2023-09-09] MEDS: spironolactone 25 MG tablet PO SCH (08:08)
[2023-09-09 10:00] VITALS: BP 154/78; PULSE 61; RESP 18; TEMP 97.8; O2SAT 100
[2023-09-09 18:00] VITALS: BP 137/87; PULSE 58; RESP 16; TEMP 97.3; O2SAT 98
[2023-09-09 20:10] VITALS: RESP 16; O2SAT 98
[2023-09-09 22:00] VITALS: BP 140/85; PULSE 57; RESP 16; TEMP 98.6; O2SAT 98
[2023-09-10] VITALS (21 sets, daily range): BP systolic 94–167; BP diastolic 61–88; PULSE 55–109; RESP 12–29; TEMP 96.8; O2SAT 90–99
[2023-09-10] MEDS ORDERED: fentaNYL /PF 50mcg/ml 5ml ampule ONE (08:00)
[2023-09-10] MEDS ORDERED: MIDAZolam 1 MG/ML 5ML VIAL ONE (08:00)
[2023-09-10] MEDS ORDERED: LIDOcaine 2% (20mg/ml) 5ml vial ONE ×2 (08:03)
[2023-09-10] MEDS ORDERED: rocuronium 10mg/ml inj IV ONE ×2 (08:03)
[2023-09-10] MEDS ORDERED: ondansetron/PF 4mg/2ml inj ONE (08:03)
[2023-09-10] MEDS ORDERED: dexamethasone sod phosphate 4mg/ml inj. ONE (08:03)
[2023-09-10] MEDS ORDERED: propofol inj 20 ML IV ONE (08:03)
[2023-09-10] MEDS ORDERED: sevoflurane 250ml liquid IH ONE (08:24)
[2023-09-10] MEDS: spironolactone 25 MG tablet PO SCH (08:30)
[2023-09-10] MEDS ORDERED: albumin (Human) 5% 250ml 250 ML IV ONE (09:20)
[2023-09-10] MEDS ORDERED: heparin 1,000unit/ml 10ml vial 10 ML ONE (09:44)
[2023-09-10] MEDS ORDERED: ceFAZolin 1000mg inj ONE ×2 (10:03)
[2023-09-10] MEDS: heparin 10,000 units/1 ML INJ ONE (10:20)
[2023-09-10] MEDS: ringers solution, lacted 1,000 ML IV SCH (10:25)
[2023-09-10] MEDS ORDERED: ondansetron/PF 4mg/2ml inj IV PRN (10:25)
[2023-09-10] MEDS ORDERED: labetalol 20mg/4ml (5mg/ml) syringe IV PRN (10:25)
[2023-09-10] MEDS ORDERED: morphine 4 MG/ML inj SYRINge IV PRN (10:25)
[2023-09-10] MEDS ORDERED: nitroGLYCERIN 25mg/250mL D5W 250 ML IV SCH (10:25)
[2023-09-10] MEDS ORDERED: fentaNYL/PF 50MCG/1 ML 2ML syringe IV PRN (10:25)
[2023-09-10] MEDS ORDERED: hydrALAZINE 20mg/ml inj. IV PRN (10:25)
[2023-09-10] MEDS ORDERED: morphine 2 MG/ML inj. syringe IV PRN (10:25)
[2023-09-10] MEDS ORDERED: sugammadex 200mg/2ml injection IV ONE (11:00)
[2023-09-10] MEDS ORDERED: fentaNYL/PF 50MCG/1 ML 2ML syringe ONE ×2 (11:27→11:54)
[2023-09-10 12:32] LABS: INR 1.5 INR; PROTHROMBIN TIME 15.6 SECONDS (9.0-12.0)
[2023-09-10] MEDS ORDERED: labetalol 20mg/4ml (5mg/ml) syringe IV ONE (12:46)
[2023-09-10] MEDS ORDERED: hydrALAZINE 20mg/ml inj. IV ONE (12:49)
[2023-09-10] MEDS ORDERED: HYDROmorphone inj. 0.5 MG/0.5 ML DISP.SYRIN IV PRN (12:50)
[2023-09-10] MEDS ORDERED: niCARDipine-NS 40mg/200ml IVPB 200 ML IV SCH (12:50)
[2023-09-10 13:20] LABS: ABG BASE EXCESS -6.1 mmol/L (-2.0-2.0); ABG HCO3 20.2 mmol/L (22.0-26.0); ABG OXYGEN SATURATION 97.1 % (94-97); ABG PCO2 (T) 40.6 mmHg (35.0-48.0); ABG PH (T) 7.309 (7.340-7.440); ABG PO2 (T) 96.6 mmHg (75.0-100.0); FCOHb 0.3 % (0.0-3.9); FHHb 2.9 % (0.0-5.0); FLOW 10 L/min; FMetHb 0.2 % (0.0-1.5); FO2Hb 96.6 % (94-97); MODE MASK - SIMPLE; PATIENT TEMPERATURE 35.9; TOTAL HEMOGLOBIN 14.9 G/dl (14.0-17.9)
[2023-09-10] MEDS ORDERED: niCARDipine-NS 40mg/200ml IVPB 200 ML IV PRN (13:25)
[2023-09-10] MEDS: fentaNYL/PF 50MCG/1 ML 2ML syringe IV PRN (13:35)
[2023-09-10] MEDS: clindamycin 600mg/D5W 50ml 50 ML IV ONE (13:44)
[2023-09-10 13:47] LABS: APTT > 139 SECONDS (22-32)
[2023-09-10] MEDS ORDERED: naloxone 0.4 mg/ml inj IV PRN (14:10)
[2023-09-10] MEDS: HYDROmorph/NS 0.2 mg/ml PCA 100 ML IV SCH ×2 (15:23→23:00)
[2023-09-10] MEDS: NORepinephrine 8mg/ 250ml NS 250 ML IV SCH (15:26)
[2023-09-10 20:02] LABS: BASOPHILS % (AUTO) 0.1 % (0-1); EOSINOPHILS % (AUTO) 0 % (0-6); HEMATOCRIT 40.9 % (42.0-52.0); HEMOGLOBIN 13.4 g/dl (14.0-17.9); LYMPHOCYTES # (AUTO) 0.7 X10'3 (1.1-4.8); MEAN CORPUSCULAR HEMOGLOBIN 31.8 PG (27.0-31.0); MEAN CORPUSCULAR HGB CONC 32.7 g/dL (33.0-36.5); MEAN CORPUSCULAR VOLUME 97.2 FL (78-98); MEAN PLATELET VOLUME 8.1 FL (7.4-10.4); MONOCYTES # (AUTO) 0.9 X10'3 (0-0.9); MONOCYTES % (AUTO) 5.2 % (2-12); NEUTROPHILS # (AUTO) 15.6 X10'3 (1.8-7.7); NEUTROPHILS % (AUTO) 90.7 % (42-75); PLATELET COUNT 175 X10'3 (140-440); RED BLOOD COUNT 4.21 X10'6 (4.70-6.10); RED CELL DISTRIBUTION WIDTH 16.7 % (11.5-14.5); WHITE BLOOD COUNT 17.2 X10'3 (4.5-11.0)
[2023-09-10 20:23] LABS: ANION GAP 9 (8-16); BLOOD UREA NITROGEN 11 MG/DL (7-18); CHLORIDE 115 MMOL/L (99-107); CREATININE 0.58 MG/DL (0.60-1.10); GLUCOSE 169 MG/DL (70-104); POTASSIUM 3.1 MMOL/L (3.5-5.1); SODIUM 143 MMOL/L (135-145); TOTAL CARBON DIOXIDE 19.1 MMOL/L (24-32)
[2023-09-10 20:24] LABS: ALANINE AMINOTRANSFERASE 23 U/L (12-78); ALBUMIN 2.1 G/DL (3.4-5.0); ALBUMIN/GLOBULIN RATIO 0.9 (1.1-1.5); ALKALINE PHOSPHATASE 25 IU/L (46-116); ASPARTATE AMINO TRANSFERASE 35 U/L (10-37); BILIRUBIN,TOTAL 0.2 MG/DL (0.1-1.0); MAGNESIUM 1.3 MG/DL (1.5-2.4); TOTAL PROTEIN 4.5 G/DL (6.4-8.2); eCRCL 118 ML/MIN; eGFR > 90 ML/MIN
[2023-09-10] MEDS: nicotine 14mg patch - 24hr TD SCH (20:45)
[2023-09-10] MEDS: nitroGLYCERIN-Tridil 50MG/D5W 250 ML IV PRN (20:46)
[2023-09-10] MEDS ORDERED: potassium Cl 40MEQ/1/2NS 520ml 520 ML IV PRN (20:55)
[2023-09-10 21:02] LABS: CALCIUM 5.9 MG/DL (8.5-10.1)
[2023-09-10] MEDS: potassium Cl 40MEQ/270ML bag 270 ML IV PRN (21:20)
[2023-09-10] MEDS: magnesium sulf-water 2g/50mL 50 ML IV PRN (21:23)
[2023-09-10] MEDS: metroNIDAZOLE-Flagyl 500mg/NS 100 ML IV SCH (23:56)
[2023-09-11] VITALS (24 sets, daily range): BP systolic 97–155; BP diastolic 56–89; PULSE 75–104; RESP 10–28; O2SAT 90–99
[2023-09-11] MEDS: magnesium sulf-water 4G/100mL 100 ML IV PRN (00:08)
[2023-09-11 03:36] LABS: BASOPHILS # (AUTO) 0.1 X10'3 (0-0.2); BASOPHILS % (AUTO) 0.6 % (0-1); EOSINOPHILS % (AUTO) 0 % (0-6); HEMATOCRIT 44.6 % (42.0-52.0); HEMOGLOBIN 14.4 g/dl (14.0-17.9); LYMPHOCYTES # (AUTO) 1.3 X10'3 (1.1-4.8); LYMPHOCYTES % (AUTO) 6.8 % (21-51); MEAN CORPUSCULAR HGB CONC 32.4 g/dL (33.0-36.5); MEAN CORPUSCULAR VOLUME 95.7 FL (78-98); MONOCYTES # (AUTO) 1.4 X10'3 (0-0.9); MONOCYTES % (AUTO) 7.5 % (2-12); NEUTROPHILS # (AUTO) 16.4 X10'3 (1.8-7.7); NEUTROPHILS % (AUTO) 85.1 % (42-75); PLATELET COUNT 206 X10'3 (140-440); RED BLOOD COUNT 4.66 X10'6 (4.70-6.10); RED CELL DISTRIBUTION WIDTH 16.8 % (11.5-14.5); WHITE BLOOD COUNT 19.3 X10'3 (4.5-11.0)
[2023-09-11 03:52] LABS: ALANINE AMINOTRANSFERASE 28 U/L (12-78); ALBUMIN 2.9 G/DL (3.4-5.0); ALBUMIN/GLOBULIN RATIO 0.9 (1.1-1.5); ALKALINE PHOSPHATASE 35 IU/L (46-116); ANION GAP 5 (8-16); ASPARTATE AMINO TRANSFERASE 33 U/L (10-37); BILIRUBIN,TOTAL 0.3 MG/DL (0.1-1.0); BLOOD UREA NITROGEN 13 MG/DL (7-18); CALCIUM 8.2 MG/DL (8.5-10.1); CHLORIDE 109 MMOL/L (99-107); CREATININE 0.93 MG/DL (0.60-1.10); GLUCOSE 121 MG/DL (70-104); POTASSIUM 5.3 MMOL/L (3.5-5.1); SODIUM 138 MMOL/L (135-145); TOTAL CARBON DIOXIDE 24.2 MMOL/L (24-32); eCRCL 73 ML/MIN; eGFR 82 ML/MIN
[2023-09-11 05:07] LABS: MAGNESIUM 2.4 MG/DL (1.5-2.4)
[2023-09-11] MEDS: mag hydrox/Alum hydrox/simeth 30ml oral suspension PO PRN (08:26)
[2023-09-11] MEDS ORDERED: hydrALAZINE 20mg/ml inj. IV PRN (08:45)
[2023-09-11] MEDS: metoclopramide 5 mg/ml inj IV SCH (14:17)
[2023-09-11] MEDS: HYDROmorph/NS 0.2 mg/ml PCA 100 ML IV SCH (15:00)
[2023-09-11] MEDS: metroNIDAZOLE-Flagyl 500mg/NS 100 ML IV SCH (16:14)
[2023-09-11] MEDS: piperacillin/tazo 3.375gm/50ml 50 ML IV SCH (17:29)
[2023-09-11] MEDS: acetaminophen 325mg tablet PO PRN (19:11)
[2023-09-12] VITALS (20 sets, daily range): BP systolic 109–149; BP diastolic 69–91; PULSE 9–97; RESP 13–26; TEMP 97.3–98.4; O2SAT 92–99
[2023-09-12 03:05] LABS: BASOPHILS # (AUTO) 0.1 X10'3 (0-0.2); BASOPHILS % (AUTO) 0.7 % (0-1); EOSINOPHILS # (AUTO) 0.1 X10'3 (0-0.9); EOSINOPHILS % (AUTO) 0.5 % (0-6); HEMATOCRIT 42.7 % (42.0-52.0); HEMOGLOBIN 13.8 g/dl (14.0-17.9); LYMPHOCYTES # (AUTO) 1.4 X10'3 (1.1-4.8); LYMPHOCYTES % (AUTO) 7.6 % (21-51); MEAN CORPUSCULAR HEMOGLOBIN 30.9 PG (27.0-31.0); MEAN CORPUSCULAR HGB CONC 32.3 g/dL (33.0-36.5); MEAN CORPUSCULAR VOLUME 95.9 FL (78-98); MEAN PLATELET VOLUME 8.3 FL (7.4-10.4); MONOCYTES # (AUTO) 1.3 X10'3 (0-0.9); MONOCYTES % (AUTO) 7.2 % (2-12); NEUTROPHILS # (AUTO) 15.5 X10'3 (1.8-7.7); PLATELET COUNT 168 X10'3 (140-440); RED BLOOD COUNT 4.45 X10'6 (4.70-6.10); RED CELL DISTRIBUTION WIDTH 16.6 % (11.5-14.5); WHITE BLOOD COUNT 18.5 X10'3 (4.5-11.0)
[2023-09-12 03:12] LABS: ALBUMIN 2.4 G/DL (3.4-5.0); ANION GAP 5 (8-16); BLOOD UREA NITROGEN 14 MG/DL (7-18); BUN/CREATININE RATIO 15.7 (10.0-20.0); CALCIUM 8.2 MG/DL (8.5-10.1); CHLORIDE 104 MMOL/L (99-107); CREATININE 0.89 MG/DL (0.60-1.10); GLUCOSE 97 MG/DL (70-104); MAGNESIUM 2.1 MG/DL (1.5-2.4); POTASSIUM 4.7 MMOL/L (3.5-5.1); SODIUM 138 MMOL/L (135-145); TOTAL CARBON DIOXIDE 28.7 MMOL/L (24-32); eCRCL 77 ML/MIN; eGFR 86 ML/MIN
[2023-09-12] MEDS: folic acid 1mg tablet PO SCH (08:22)
[2023-09-12] MEDS: thiamine 100mg tablet PO SCH (08:23)
[2023-09-12] MEDS: multivitamins, therapeutics tablet PO SCH (08:23)
[2023-09-12] MEDS: lisinopril 10 MG tablet PO SCH (10:29)
[2023-09-12] MEDS ORDERED: HYDROcodone/acetaminophen 10/325mg tab PO PRN (12:15)
[2023-09-12] MEDS ORDERED: HYDROcodone/acetaminophen 5mg/325mg tablet PO PRN (12:15)
[2023-09-12] MEDS: PCA WASTE DOCUMENTATION 1 MG ML MC SCH (12:32)
[2023-09-12] MEDS: HYDROcodone/acetaminophen 10/325mg tab PO PRN (13:17)
[2023-09-13] VITALS (7 sets, daily range): BP systolic 138–148; BP diastolic 77–88; PULSE 66–88; RESP 12–30; TEMP 97.3–98.2; O2SAT 94–99
[2023-09-13 06:59] LABS: BASOPHILS % (AUTO) 0.2 % (0-1); EOSINOPHILS # (AUTO) 0.2 X10'3 (0-0.9); EOSINOPHILS % (AUTO) 1.2 % (0-6); HEMATOCRIT 41.4 % (42.0-52.0); HEMOGLOBIN 13.7 g/dl (14.0-17.9); LYMPHOCYTES # (AUTO) 1.7 X10'3 (1.1-4.8); LYMPHOCYTES % (AUTO) 10.7 % (21-51); MEAN CORPUSCULAR HEMOGLOBIN 31.8 PG (27.0-31.0); MEAN CORPUSCULAR HGB CONC 33.1 g/dL (33.0-36.5); MEAN CORPUSCULAR VOLUME 95.9 FL (78-98); MEAN PLATELET VOLUME 8.4 FL (7.4-10.4); MONOCYTES # (AUTO) 1.4 X10'3 (0-0.9); MONOCYTES % (AUTO) 8.9 % (2-12); NEUTROPHILS # (AUTO) 12.6 X10'3 (1.8-7.7); PLATELET COUNT 173 X10'3 (140-440); RED BLOOD COUNT 4.31 X10'6 (4.70-6.10); RED CELL DISTRIBUTION WIDTH 16.1 % (11.5-14.5); WHITE BLOOD COUNT 15.9 X10'3 (4.5-11.0)
[2023-09-13 07:40] LABS: ALBUMIN 2.3 G/DL (3.4-5.0); ANION GAP 4 (8-16); BLOOD UREA NITROGEN 8 MG/DL (7-18); BUN/CREATININE RATIO 9.8 (10.0-20.0); CALCIUM 8.2 MG/DL (8.5-10.1); CHLORIDE 106 MMOL/L (99-107); CREATININE 0.82 MG/DL (0.60-1.10); GLUCOSE 81 MG/DL (70-104); MAGNESIUM 1.8 MG/DL (1.5-2.4); SODIUM 137 MMOL/L (135-145); TOTAL CARBON DIOXIDE 27.3 MMOL/L (24-32); eCRCL 83 ML/MIN; eGFR > 90 ML/MIN
[2023-09-13] MEDS: morphine 2 MG/ML inj. syringe IV PRN (07:59)
[2023-09-13] MEDS: enoxaparin 40mg/0.4ml syringe SUBCUT SCH (20:01)
[2023-09-14 06:00] VITALS: BP 126/69; PULSE 64; RESP 19; TEMP 97; O2SAT 99
[2023-09-14 07:19] LABS: BASOPHILS # (AUTO) 0.1 X10'3 (0-0.2); BASOPHILS % (AUTO) 0.5 % (0-1); EOSINOPHILS # (AUTO) 0.3 X10'3 (0-0.9); EOSINOPHILS % (AUTO) 2.1 % (0-6); HEMATOCRIT 38.3 % (42.0-52.0); HEMOGLOBIN 12.6 g/dl (14.0-17.9); LYMPHOCYTES # (AUTO) 1.9 X10'3 (1.1-4.8); LYMPHOCYTES % (AUTO) 15.2 % (21-51); MEAN CORPUSCULAR HEMOGLOBIN 31.5 PG (27.0-31.0); MEAN CORPUSCULAR HGB CONC 32.9 g/dL (33.0-36.5); MEAN CORPUSCULAR VOLUME 95.9 FL (78-98); MEAN PLATELET VOLUME 8.6 FL (7.4-10.4); NEUTROPHILS # (AUTO) 9.4 X10'3 (1.8-7.7); NEUTROPHILS % (AUTO) 74.2 % (42-75); PLATELET COUNT 178 X10'3 (140-440); RED BLOOD COUNT 3.99 X10'6 (4.70-6.10); RED CELL DISTRIBUTION WIDTH 16.2 % (11.5-14.5); WHITE BLOOD COUNT 12.7 X10'3 (4.5-11.0)
[2023-09-14 07:59] LABS: ALBUMIN 1.9 G/DL (3.4-5.0); ANION GAP 3 (8-16); BLOOD UREA NITROGEN 12 MG/DL (7-18); BUN/CREATININE RATIO 14.8 (10.0-20.0); CALCIUM 7.8 MG/DL (8.5-10.1); CHLORIDE 106 MMOL/L (99-107); CREATININE 0.81 MG/DL (0.60-1.10); GLUCOSE 99 MG/DL (70-104); MAGNESIUM 1.8 MG/DL (1.5-2.4); POTASSIUM 4.4 MMOL/L (3.5-5.1); SODIUM 137 MMOL/L (135-145); TOTAL CARBON DIOXIDE 27.9 MMOL/L (24-32); eCRCL 84 ML/MIN; eGFR > 90 ML/MIN
[2023-09-14 08:00] VITALS: RESP 19; O2SAT 99
[2023-09-14] MEDS: aspirin 81mg tab.chew PO SCH (08:23)
[2023-09-14 11:00] VITALS: BP 127/73; PULSE 79; RESP 19; TEMP 97.8; O2SAT 98
[2023-09-14 15:00] VITALS: BP 115/64; PULSE 88; RESP 13; TEMP 97.5; O2SAT 97
[2023-09-14 18:00] VITALS: BP 129/74; PULSE 89; RESP 24; TEMP 97.3; O2SAT 95
[2023-09-14 20:00] VITALS: RESP 24; O2SAT 95
[2023-09-15 02:00] VITALS: BP 149/90; PULSE 70; RESP 18; TEMP 98.1; O2SAT 99
[2023-09-15] MEDS ORDERED: magnesium hydroxide 30ml (MOM) UD suspension PO PRN (07:30)
[2023-09-15 07:51] VITALS: BP_SYST 164; PULSE 77
[2023-09-15 08:00] VITALS: RESP 25; O2SAT 98
[2023-09-15 12:45] VITALS: RESP 17
[2023-09-15] MEDS ORDERED: JUVEN Smoothie Arginine/Glut./Ca2+Bmb (Juven 19.3pkt) 240ml cup PO SCH (17:30)
[2023-09-16] MEDS ORDERED: lactose-reduced food (Ensure High Protein) 237ml bottle PO SCH (12:30)
== END 2023-09-15 15:05 | DRG 169 ==
LOC: ER 15:59 → ED HOLD 21:09 → EDBEDREQ 22:45 → ORTHO 4S 09-05 00:18 → PACU 09-10 07:15 → CICU 2S 09-10 14:29 → PCU 3S 09-12 15:15
PROVIDERS: ADMIT Internal Medicine Pulmonary Disease; ATTEND Internal Medicine
PROC: B4201ZZ Computerized Tomography (CT Scan) of Abdominal Aorta using Low Osmolar Contrast (ICD-10-PCS; 2023-09-05)
PROC: B42H1ZZ Computerized Tomography (CT Scan) of Bilateral Lower Extremity Arteries using Low Osmolar Contrast (ICD-10-PCS; 2023-09-05)
PROC: B42H1ZZ Computerized Tomography (CT Scan) of Bilateral Lower Extremity Arteries using Low Osmolar Contrast (ICD-10-PCS; 2023-09-05)
PROC: BW211ZZ Computerized Tomography (CT Scan) of Abdomen and Pelvis using Low Osmolar Contrast (ICD-10-PCS; 2023-09-06)
PROC: 4A02XM4 Measurement of Cardiac Total Activity, External Approach (ICD-10-PCS; 2023-09-06)
PROC: 3E033HZ Introduction of Radioactive Substance into Peripheral Vein, Percutaneous Approach (ICD-10-PCS; 2023-09-06)
PROC: 04CL0ZZ Extirpation of Matter from Left Femoral Artery, Open Approach (ICD-10-PCS; 2023-09-10)
PROC: 04UL0JZ Supplement Left Femoral Artery with Synthetic Substitute, Open Approach (ICD-10-PCS; 2023-09-10)
PROC: 04CK0ZZ Extirpation of Matter from Right Femoral Artery, Open Approach (ICD-10-PCS; 2023-09-10)
PROC: 02HV33Z Insertion of Infusion Device into Superior Vena Cava, Percutaneous Approach (ICD-10-PCS; 2023-09-10)
PROC: B548ZZA Ultrasonography of Superior Vena Cava, Guidance (ICD-10-PCS; 2023-09-10)
PROC: 04100JK Bypass Abdominal Aorta to Bilateral Femoral Arteries with Synthetic Substitute, Open Approach (ICD-10-PCS; principal; 2023-09-10 08:24)
DX: E11.51 Type 2 diabetes mellitus with diabetic peripheral angiopathy without gangrene (principal); E11.40 Type 2 diabetes mellitus with diabetic neuropathy, unspecified; I50.22 Chronic systolic (congestive) heart failure; Z95.1 Presence of aortocoronary bypass graft; E78.00 Pure hypercholesterolemia, unspecified; G40.909 Epilepsy, unspecified, not intractable, without status epilepticus; I11.0 Hypertensive heart disease with heart failure; I48.0 Paroxysmal atrial fibrillation; F10.939 Alcohol use, unspecified with withdrawal, unspecified; F17.200 Nicotine dependence, unspecified, uncomplicated; I25.10 Atherosclerotic heart disease of native coronary artery without angina pectoris; I25.5 Ischemic cardiomyopathy; K62.89 Other specified diseases of anus and rectum; K20.90 Esophagitis, unspecified without bleeding; K52.9 Noninfective gastroenteritis and colitis, unspecified; J44.9 Chronic obstructive pulmonary disease, unspecified; I74.5 Embolism and thrombosis of iliac artery; I25.2 Old myocardial infarction; Z59.00 Homelessness unspecified; Z95.5 Presence of coronary angioplasty implant and graft
CPT/HCPCS: 36415; 36600; 71045; 74177; 75635; 78452; 80048; 80053; 80061; 80305; 80320; 81003; 82272; 82330; 82803; 82948; 83036; 83605; 83690; 83735; 84100; 84145; 84484; 85018; 85025; 85610; 85730; 86140; 86885; 86900; 86901; 86920; 87040; 87081; 87324; 87449; 90471; 90715; 93005; 93017; 93306; 93925; 96365; 96367; 96375; 97116; 97161; 97164; 97530; 99291; A4615; A4618; A6213; A6258; A6402; A6449; A7000; A9500; C1751; C1758; C1768; G0378; J0360; J0690; J1100; J1170; J1644; J1650; J2250; J2270; J2405; J2470; J2543; J2704; J2765; J2785; J3010; J3475; J3480; J3490; J7030; J7040; J7050; J7120; P9045; Q9963; Q9967

== ENCOUNTER 2023-10-06 11:21 | Emergency (ER) | payer MEDICAID ==
[~2023-10-06] VITALS: Ht 172.7 cm; Wt 62.5 kg
[~2023-10-06 11:21] MED LIST changes: -AMIO200T67 PO; -APIX5TAB3 PO; -ASPI-920 PO; -ATOR20TA PO; -CARV6.253 PO; -FURO20TA4 PO; -LISI5TAB22 PO; -NALT50TA5 PO; -NICO-687 TOP; +NO HOME MEDS; -SPIR25TA5 PO
[2023-10-06 11:28] VITALS: TEMP 97.8
[2023-10-06] MEDS: methylnaltrexone br 12mg/0.6ml inj***SubQ only SQ ONE (12:56)
[2023-10-06 13:33] VITALS: BP 152/87; PULSE 55; RESP 18; O2SAT 100
[2023-10-06] MEDS ORDERED: GOLYS PO (13:51)
== END 2023-10-06 13:52 | disposition home or self-care (01) ==
LOC: ER 11:21
DX: K59.03 Drug induced constipation (principal); T40.695A Adverse effect of other narcotics, initial encounter; I25.10 Atherosclerotic heart disease of native coronary artery without angina pectoris; E78.00 Pure hypercholesterolemia, unspecified; I10 Essential (primary) hypertension; I25.2 Old myocardial infarction; J44.9 Chronic obstructive pulmonary disease, unspecified; M19.90 Unspecified osteoarthritis, unspecified site; Z98.61 Coronary angioplasty status; Z95.1 Presence of aortocoronary bypass graft; Z72.89 Other problems related to lifestyle; Z59.00 Homelessness unspecified; Y92.89 Other specified places as the place of occurrence of the external cause
CPT/HCPCS: 74018; 96372; 99283; J2212

== ENCOUNTER 2024-02-07 17:42 | Inpatient (IN) | payer MEDICAID ==
[~2024-02-07] VITALS: Ht 172.7 cm; Wt 69.9 kg
[~2024-02-07 17:42] MED LIST changes: +CHLO25CA10 PO; +FOLI0.4T14 CORPAK; +GOLYS PO; +THIA50TA10 PO
[2024-02-07 18:13] LABS: BASOPHILS # (AUTO) 0.2 X10'3 (0-0.2); BASOPHILS % (AUTO) 1.4 % (0-1); EOSINOPHILS # (AUTO) 0.1 X10'3 (0-0.9); HEMATOCRIT 45.9 % (42.0-52.0); HEMOGLOBIN 15.3 g/dl (14.0-17.9); LYMPHOCYTES # (AUTO) 1.6 X10'3 (1.1-4.8); LYMPHOCYTES % (AUTO) 12.4 % (21-51); MEAN CORPUSCULAR HEMOGLOBIN 31.8 PG (27.0-31.0); MEAN CORPUSCULAR HGB CONC 33.4 g/dL (33.0-36.5); MEAN CORPUSCULAR VOLUME 95.3 FL (78-98); MEAN PLATELET VOLUME 8.2 FL (7.4-10.4); MONOCYTES # (AUTO) 0.8 X10'3 (0-0.9); MONOCYTES % (AUTO) 6.4 % (2-12); NEUTROPHILS # (AUTO) 10.1 X10'3 (1.8-7.7); NEUTROPHILS % (AUTO) 78.8 % (42-75); PLATELET COUNT 227 X10'3 (140-440); RED BLOOD COUNT 4.81 X10'6 (4.70-6.10); RED CELL DISTRIBUTION WIDTH 15.9 % (11.5-14.5); WHITE BLOOD COUNT 12.8 X10'3 (4.5-11.0)
[2024-02-07 19:04] LABS: ALANINE AMINOTRANSFERASE 11 U/L (12-78); ALBUMIN 3.4 G/DL (3.4-5.0); ALBUMIN/GLOBULIN RATIO 0.9 (1.1-1.5); ALKALINE PHOSPHATASE 93 IU/L (46-116); ANION GAP 6 (8-16); ASPARTATE AMINO TRANSFERASE 21 U/L (10-37); BILIRUBIN,TOTAL 0.5 MG/DL (0.1-1.0); BLOOD UREA NITROGEN 13 MG/DL (7-18); BUN/CREATININE RATIO 11.9 (10.0-20.0); CALCIUM 8.6 MG/DL (8.5-10.1); CHLORIDE 103 MMOL/L (99-107); CREATININE 1.09 MG/DL (0.60-1.10); GLUCOSE 171 MG/DL (70-104); SODIUM 138 MMOL/L (135-145); TOTAL CARBON DIOXIDE 28.7 MMOL/L (24-32); TOTAL PROTEIN 7.2 G/DL (6.4-8.2); eCRCL 66 ML/MIN; eGFR 68 ML/MIN
[2024-02-07 19:13] LABS: PRO BRAIN NATRIURETIC PEPTIDE 1605 PG/ML (0-125)
[2024-02-07 19:21] LABS: POTASSIUM 4.5 MMOL/L (3.5-5.1)
[2024-02-07] MEDS: ipratropium/albuterol 3ml nebule NEB ONE (20:38)
[2024-02-07 20:39] VITALS: PULSE 101; RESP 16; O2SAT 98
[2024-02-07 20:44] VITALS: PULSE 98; RESP 19; O2SAT 99
[2024-02-07] MEDS: methylPREDNISolone sod succ/PF 40mg inj. IV STA (20:46)
[2024-02-07] MEDS: normal saline 1000ML IV soln IVB ONE (20:46)
[2024-02-07] MEDS: CefTRIAXone 2gm/D5W 50ml BAG 50 ML IV ONE (22:56)
[2024-02-07] MEDS: azithromycin/NS 500mg/250ml 250 ML IV STA (22:57)
[2024-02-07] MEDS ORDERED: magnesium Cl slow-release 64mg tablet PO PRN (23:30)
[2024-02-07] MEDS ORDERED: potassium Cl 20 mEq SR tablet PO PRN ×2 (23:30)
[2024-02-07] MEDS ORDERED: magnesium sulf-water 4G/100mL 100 ML IV PRN (23:30)
[2024-02-07] MEDS ORDERED: acetaminophen 325mg tablet PO PRN (23:30)
[2024-02-07] MEDS ORDERED: mag hydrox/Alum hydrox/simeth 30ml oral suspension PO PRN (23:30)
[2024-02-07] MEDS ORDERED: magnesium hydroxide 30ml (MOM) UD suspension PO PRN (23:30)
[2024-02-07] MEDS ORDERED: magnesium sulf-water 2g/50mL 50 ML IV PRN (23:30)
[2024-02-07] MEDS ORDERED: ondansetron/PF 4mg/2ml inj IV PRN (23:30)
[2024-02-07] MEDS ORDERED: potassium Cl 40MEQ/1/2NS 520ml 520 ML IV PRN (23:30)
[2024-02-07] MEDS: CefTRIAXone/D5W-Rocephin 1gm 50 ML IV SCH (23:35)
[2024-02-07] MEDS ORDERED: ipratropium/albuterol 3ml nebule NEB PRN (23:35)
[2024-02-07] MEDS: azithromycin/NS 500mg/250ml 250 ML IV SCH (23:35)
[2024-02-07] MEDS: methylPREDNISolone sod succ 125mg/2ml vial IV SCH (23:54)
[2024-02-08] VITALS (12 sets, daily range): BP systolic 128–142; BP diastolic 67–79; PULSE 70–94; RESP 14–20; TEMP 98.2; O2SAT 96–99
[2024-02-08 00:03] LABS: HEMOGLOBIN A1C 5.4 % (4.5-6.2)
[2024-02-08] MEDS: metoprolol succinate 25mg (24-HOUR) SR. Tablet PO SCH (00:14)
[2024-02-08] MEDS: sacubitril/valsartan 24mg-26mg tablet PO SCH (00:14)
[2024-02-08] MEDS: nicotine 14mg patch - 24hr TD ONE (00:14)
[2024-02-08 03:10] LABS: BASOPHILS % (AUTO) 0.3 % (0-1); EOSINOPHILS % (AUTO) 0.1 % (0-6); HEMATOCRIT 44.1 % (42.0-52.0); HEMOGLOBIN 14.6 g/dl (14.0-17.9); LYMPHOCYTES # (AUTO) 0.5 X10'3 (1.1-4.8); LYMPHOCYTES % (AUTO) 5.3 % (21-51); MEAN CORPUSCULAR HEMOGLOBIN 31.7 PG (27.0-31.0); MEAN CORPUSCULAR HGB CONC 33.1 g/dL (33.0-36.5); MEAN CORPUSCULAR VOLUME 95.6 FL (78-98); MEAN PLATELET VOLUME 8.2 FL (7.4-10.4); MONOCYTES # (AUTO) 0.1 X10'3 (0-0.9); MONOCYTES % (AUTO) 0.8 % (2-12); NEUTROPHILS # (AUTO) 9.2 X10'3 (1.8-7.7); NEUTROPHILS % (AUTO) 93.5 % (42-75); PLATELET COUNT 189 X10'3 (140-440); RED BLOOD COUNT 4.61 X10'6 (4.70-6.10); WHITE BLOOD COUNT 9.8 X10'3 (4.5-11.0)
[2024-02-08 03:40] LABS: ALANINE AMINOTRANSFERASE 8 U/L (12-78); ALBUMIN 2.9 G/DL (3.4-5.0); ALBUMIN/GLOBULIN RATIO 0.9 (1.1-1.5); ALKALINE PHOSPHATASE 87 IU/L (46-116); ANION GAP 10 (8-16); ASPARTATE AMINO TRANSFERASE 16 U/L (10-37); BILIRUBIN,TOTAL 0.6 MG/DL (0.1-1.0); BLOOD UREA NITROGEN 9 MG/DL (7-18); BUN/CREATININE RATIO 10.5 (10.0-20.0); CALCIUM 8.5 MG/DL (8.5-10.1); CHLORIDE 106 MMOL/L (99-107); CREATININE 0.86 MG/DL (0.60-1.10); GLUCOSE 161 MG/DL (70-104); MAGNESIUM 1.8 MG/DL (1.5-2.4); POTASSIUM 4.3 MMOL/L (3.5-5.1); SODIUM 140 MMOL/L (135-145); TOTAL CARBON DIOXIDE 23.7 MMOL/L (24-32); TOTAL PROTEIN 6.3 G/DL (6.4-8.2); eCRCL 84 ML/MIN; eGFR 90 ML/MIN
[2024-02-08] MEDS: ipratropium/albuterol 3ml nebule NEB SCH (04:43)
[2024-02-08] MEDS: K and/or MAG REPLACEMENT MC SCH (08:00)
[2024-02-08] MEDS ORDERED: heparin, porcine 5000 units/ml vial SQ SCH (08:00)
[2024-02-08] MEDS: docusate sod 100mg capsule PO SCH (08:06)
[2024-02-08] MEDS: atorvastatin 20mg tablet PO SCH (08:06)
[2024-02-08] MEDS: apixaban 5mg tablet PO SCH (08:06)
[2024-02-08] MEDS: lactobacillus rhamnosus 10,000 MMU CELLS/CAPSULE PO SCH (08:06)
[2024-02-08] MEDS: EMPAGLIFLOZIN 10 MG TABLET PO SCH (08:07)
[2024-02-08] MEDS: spironolactone 25 MG tablet PO SCH (08:22)
[2024-02-08 11:17] LABS: BILIRUBIN,URINE NEGATIVE (Neg); CLARITY,URINE CLEAR (Clear); COLOR,URINE YELLOW (Yellow); GLUCOSE, URINE 500 mg/dl (Neg); KETONES,URINE NEGATIVE (Neg); LEUKOCYTE ESTERASE ,URINE NEGATIVE (Neg); NITRITES, URINE NEGATIVE (Neg); OCCULT BLOOD,URINE NEGATIVE (Neg); PROTEIN,URINE NEGATIVE (Neg)
[2024-02-08 11:20] LABS: UA COLLECTION TYPE URINAL
[2024-02-08 11:34] LABS: URINE AMPHETAMINE SCREEN NEGATIVE (Neg); URINE BARBITUATE SCREEN NEGATIVE (Neg); URINE BENZODIAZEPINES SCREEN NEGATIVE (Neg); URINE CANNABINOID SCREEN POSITIVE (Neg); URINE COCAINE SCREEN NEGATIVE (Neg); URINE METHADONE SCREEN NEGATIVE (Neg); URINE OPIATE SCREEN NEGATIVE (Neg); URINE PHENCYCLIDINE SCREEN NEGATIVE (Neg)
[2024-02-08] MEDS ORDERED: guaiFENesin/DM 10ml UD oral syrup PO PRN (21:45)
[2024-02-09] VITALS (16 sets, daily range): BP systolic 111–131; BP diastolic 70–79; PULSE 81–101; RESP 15–24; TEMP 97.5–98.3; O2SAT 96–99
[2024-02-09 06:38] LABS: BASOPHILS % (AUTO) 0.1 % (0-1); EOSINOPHILS % (AUTO) 0 % (0-6); HEMATOCRIT 40.9 % (42.0-52.0); HEMOGLOBIN 13.4 g/dl (14.0-17.9); LYMPHOCYTES # (AUTO) 0.5 X10'3 (1.1-4.8); LYMPHOCYTES % (AUTO) 3.1 % (21-51); MEAN CORPUSCULAR HEMOGLOBIN 31.2 PG (27.0-31.0); MEAN CORPUSCULAR HGB CONC 32.8 g/dL (33.0-36.5); MEAN CORPUSCULAR VOLUME 95.3 FL (78-98); MEAN PLATELET VOLUME 8.4 FL (7.4-10.4); MONOCYTES # (AUTO) 0.3 X10'3 (0-0.9); MONOCYTES % (AUTO) 1.8 % (2-12); NEUTROPHILS # (AUTO) 16.1 X10'3 (1.8-7.7); PLATELET COUNT 189 X10'3 (140-440); RED BLOOD COUNT 4.28 X10'6 (4.70-6.10); RED CELL DISTRIBUTION WIDTH 15.5 % (11.5-14.5)
[2024-02-09 07:05] LABS: ALANINE AMINOTRANSFERASE 9 U/L (12-78); ALBUMIN 2.8 G/DL (3.4-5.0); ALBUMIN/GLOBULIN RATIO 0.8 (1.1-1.5); ALKALINE PHOSPHATASE 73 IU/L (46-116); ANION GAP 10 (8-16); ASPARTATE AMINO TRANSFERASE 9 U/L (10-37); BILIRUBIN,TOTAL 0.4 MG/DL (0.1-1.0); BLOOD UREA NITROGEN 20 MG/DL (7-18); BUN/CREATININE RATIO 19.6 (10.0-20.0); CALCIUM 8.5 MG/DL (8.5-10.1); CHLORIDE 107 MMOL/L (99-107); CREATININE 1.02 MG/DL (0.60-1.10); GLUCOSE 163 MG/DL (70-104); MAGNESIUM 2.2 MG/DL (1.5-2.4); POTASSIUM 4.2 MMOL/L (3.5-5.1); SODIUM 140 MMOL/L (135-145); TOTAL CARBON DIOXIDE 22.7 MMOL/L (24-32); TOTAL PROTEIN 6.2 G/DL (6.4-8.2); eCRCL 71 ML/MIN; eGFR 74 ML/MIN
[2024-02-09] MEDS: azithromycin/NS 500mg/250ml 250 ML IV SCH (09:03)
[2024-02-10] VITALS (19 sets, daily range): BP systolic 132–144; BP diastolic 75–84; PULSE 67–99; RESP 15–20; TEMP 97–98.4; O2SAT 96–98
[2024-02-10 05:40] LABS: BASOPHILS % (AUTO) 0.1 % (0-1); EOSINOPHILS % (AUTO) 0 % (0-6); HEMOGLOBIN 13.4 g/dl (14.0-17.9); LYMPHOCYTES # (AUTO) 0.5 X10'3 (1.1-4.8); LYMPHOCYTES % (AUTO) 2.9 % (21-51); MEAN CORPUSCULAR HEMOGLOBIN 31.4 PG (27.0-31.0); MEAN CORPUSCULAR HGB CONC 32.8 g/dL (33.0-36.5); MEAN CORPUSCULAR VOLUME 95.9 FL (78-98); MEAN PLATELET VOLUME 8.5 FL (7.4-10.4); MONOCYTES # (AUTO) 0.3 X10'3 (0-0.9); NEUTROPHILS # (AUTO) 15.5 X10'3 (1.8-7.7); PLATELET COUNT 185 X10'3 (140-440); RED BLOOD COUNT 4.27 X10'6 (4.70-6.10); WHITE BLOOD COUNT 16.3 X10'3 (4.5-11.0)
[2024-02-10 06:04] LABS: ALANINE AMINOTRANSFERASE 12 U/L (12-78); ALBUMIN 2.8 G/DL (3.4-5.0); ALBUMIN/GLOBULIN RATIO 0.9 (1.1-1.5); ALKALINE PHOSPHATASE 70 IU/L (46-116); ANION GAP 8 (8-16); ASPARTATE AMINO TRANSFERASE 10 U/L (10-37); BILIRUBIN,TOTAL 0.4 MG/DL (0.1-1.0); BLOOD UREA NITROGEN 23 MG/DL (7-18); BUN/CREATININE RATIO 26.4 (10.0-20.0); CALCIUM 8.4 MG/DL (8.5-10.1); CHLORIDE 107 MMOL/L (99-107); CREATININE 0.87 MG/DL (0.60-1.10); GLUCOSE 151 MG/DL (70-104); MAGNESIUM 2.3 MG/DL (1.5-2.4); POTASSIUM 4.3 MMOL/L (3.5-5.1); SODIUM 138 MMOL/L (135-145); TOTAL CARBON DIOXIDE 22.8 MMOL/L (24-32); eCRCL 83 ML/MIN; eGFR 88 ML/MIN
[2024-02-11] VITALS (13 sets, daily range): BP systolic 129–146; BP diastolic 63–75; PULSE 77–94; RESP 14–18; TEMP 97.5–98.2; O2SAT 93–98
[2024-02-11 06:28] LABS: BASOPHILS % (AUTO) 0 % (0-1); EOSINOPHILS % (AUTO) 0 % (0-6); HEMATOCRIT 41.8 % (42.0-52.0); LYMPHOCYTES # (AUTO) 0.4 X10'3 (1.1-4.8); LYMPHOCYTES % (AUTO) 3.5 % (21-51); MEAN CORPUSCULAR HEMOGLOBIN 31.9 PG (27.0-31.0); MEAN CORPUSCULAR HGB CONC 33.5 g/dL (33.0-36.5); MEAN CORPUSCULAR VOLUME 95.3 FL (78-98); MEAN PLATELET VOLUME 8.5 FL (7.4-10.4); MONOCYTES # (AUTO) 0.4 X10'3 (0-0.9); MONOCYTES % (AUTO) 2.8 % (2-12); NEUTROPHILS # (AUTO) 11.9 X10'3 (1.8-7.7); NEUTROPHILS % (AUTO) 93.7 % (42-75); PLATELET COUNT 174 X10'3 (140-440); RED BLOOD COUNT 4.38 X10'6 (4.70-6.10); WHITE BLOOD COUNT 12.7 X10'3 (4.5-11.0)
[2024-02-11 06:52] LABS: ALANINE AMINOTRANSFERASE 8 U/L (12-78); ALBUMIN 2.8 G/DL (3.4-5.0); ALBUMIN/GLOBULIN RATIO 0.9 (1.1-1.5); ALKALINE PHOSPHATASE 60 IU/L (46-116); ANION GAP 7 (8-16); ASPARTATE AMINO TRANSFERASE 5 U/L (10-37); BILIRUBIN,TOTAL 0.4 MG/DL (0.1-1.0); BLOOD UREA NITROGEN 23 MG/DL (7-18); CALCIUM 8.4 MG/DL (8.5-10.1); CHLORIDE 105 MMOL/L (99-107); CREATININE 0.96 MG/DL (0.60-1.10); GLUCOSE 150 MG/DL (70-104); MAGNESIUM 2.3 MG/DL (1.5-2.4); POTASSIUM 4.8 MMOL/L (3.5-5.1); SODIUM 137 MMOL/L (135-145); TOTAL CARBON DIOXIDE 25.3 MMOL/L (24-32); eCRCL 75 ML/MIN; eGFR 79 ML/MIN
[2024-02-12 06:00] VITALS: BP 159/100; PULSE 71; RESP 17; TEMP 96.7; O2SAT 97
[2024-02-12 07:48] LABS: BASOPHILS % (AUTO) 0.1 % (0-1); EOSINOPHILS % (AUTO) 0 % (0-6); HEMOGLOBIN 14.4 g/dl (14.0-17.9); LYMPHOCYTES # (AUTO) 0.5 X10'3 (1.1-4.8); MONOCYTES # (AUTO) 0.4 X10'3 (0-0.9); RED CELL DISTRIBUTION WIDTH 15.9 % (11.5-14.5)
[2024-02-12 07:49] LABS: LYMPHOCYTES % (AUTO) 4.3 % (21-51); MEAN CORPUSCULAR HGB CONC 33.6 g/dL (33.0-36.5); MEAN CORPUSCULAR VOLUME 95.2 FL (78-98); MEAN PLATELET VOLUME 8.9 FL (7.4-10.4); MONOCYTES % (AUTO) 3.3 % (2-12); NEUTROPHILS # (AUTO) 10.8 X10'3 (1.8-7.7); NEUTROPHILS % (AUTO) 92.3 % (42-75); PLATELET COUNT 156 X10'3 (140-440); RED BLOOD COUNT 4.52 X10'6 (4.70-6.10); WHITE BLOOD COUNT 11.7 X10'3 (4.5-11.0)
[2024-02-12 08:06] VITALS: PULSE 76; RESP 16; O2SAT 92
[2024-02-12 08:53] LABS: ALANINE AMINOTRANSFERASE 19 U/L (12-78); ALBUMIN 2.7 G/DL (3.4-5.0); ALBUMIN/GLOBULIN RATIO 0.9 (1.1-1.5); ALKALINE PHOSPHATASE 53 IU/L (46-116); ANION GAP 7 (8-16); ASPARTATE AMINO TRANSFERASE 34 U/L (10-37); BILIRUBIN,TOTAL 0.3 MG/DL (0.1-1.0); BLOOD UREA NITROGEN 29 MG/DL (7-18); BUN/CREATININE RATIO 28.7 (10.0-20.0); CALCIUM 8.6 MG/DL (8.5-10.1); CHLORIDE 105 MMOL/L (99-107); CREATININE 1.01 MG/DL (0.60-1.10); GLUCOSE 140 MG/DL (70-104); SODIUM 135 MMOL/L (135-145); TOTAL CARBON DIOXIDE 23.1 MMOL/L (24-32); TOTAL PROTEIN 5.6 G/DL (6.4-8.2); eCRCL 71 ML/MIN; eGFR 74 ML/MIN
[2024-02-12 08:59] LABS: POTASSIUM 5.7 MMOL/L (3.5-5.1)
[2024-02-12 09:20] VITALS: PULSE 79; RESP 15
[2024-02-12 10:00] VITALS: BP 147/90; PULSE 84; RESP 18; TEMP 98.3; O2SAT 97
[2024-02-12] MEDS ORDERED: ATOR20TA66 PO (13:19)
[2024-02-12] MEDS ORDERED: APIX5TAB3 PO (13:19)
[2024-02-12] MEDS ORDERED: EMPA10TA PO (13:19)
[2024-02-12] MEDS ORDERED: SPIR25TA PO (13:19)
[2024-02-12] MEDS ORDERED: METO-395 PO (13:19)
[2024-02-12] MEDS ORDERED: SACU1TAB PO (13:19)
== END 2024-02-12 13:30 | disposition home or self-care (01) | DRG 720 ==
LOC: ER 17:43 → ED HOLD 22:33 → ORTHO 4S 02-08 20:40
PROVIDERS: ADMIT Internal Medicine Critical Care Medicine; ATTEND Nurse Practitioner Family
DX: A41.9 Sepsis, unspecified organism (principal); J96.01 Acute respiratory failure with hypoxia; I50.23 Acute on chronic systolic (congestive) heart failure; I11.0 Hypertensive heart disease with heart failure; J15.9 Unspecified bacterial pneumonia; J44.0 Chronic obstructive pulmonary disease with (acute) lower respiratory infection; I48.0 Paroxysmal atrial fibrillation; Z20.822 Contact with and (suspected) exposure to COVID-19; F17.210 Nicotine dependence, cigarettes, uncomplicated; E78.00 Pure hypercholesterolemia, unspecified; I25.10 Atherosclerotic heart disease of native coronary artery without angina pectoris; J44.1 Chronic obstructive pulmonary disease with (acute) exacerbation; I73.9 Peripheral vascular disease, unspecified; I25.2 Old myocardial infarction; Z95.1 Presence of aortocoronary bypass graft; Z59.00 Homelessness unspecified; Z91.148 Patient's other noncompliance with medication regimen for other reason
CPT/HCPCS: 36415; 71045; 71250; 80053; 80305; 81003; 83036; 83605; 83735; 83880; 84145; 84484; 85025; 87040; 87081; 87502; 87503; 87811; 93005; 93306; 94640; 94760; 99285; A4615; G0378; J0456; J0696; J2919; J7030

== ENCOUNTER 2024-02-24 07:53 | Emergency (ER) | payer MEDICAID ==
[~2024-02-24] VITALS: Ht 172.7 cm; Wt 72.7 kg
[~2024-02-24 07:53] MED LIST changes: +APIX5TAB3 PO; +ATOR20TA66 PO; -CHLO25CA10 PO; +EMPA10TA PO; -FOLI0.4T14 CORPAK; -GOLYS PO; +METO-395 PO; -NO HOME MEDS; +SACU1TAB PO; +SPIR25TA PO; -THIA50TA10 PO
[2024-02-24 07:57] VITALS: TEMP 98.8
[2024-02-24 08:22] VITALS: BP 136/94; PULSE 104; RESP 18; O2SAT 98
[2024-02-24] MEDS ORDERED: CHLO25CA10 PO (08:23)
== END 2024-02-24 08:36 | disposition home or self-care (01) ==
LOC: ER 07:54
DX: F10.10 Alcohol abuse, uncomplicated (principal); I10 Essential (primary) hypertension; E78.00 Pure hypercholesterolemia, unspecified; I25.10 Atherosclerotic heart disease of native coronary artery without angina pectoris; I25.2 Old myocardial infarction; J44.9 Chronic obstructive pulmonary disease, unspecified; M19.90 Unspecified osteoarthritis, unspecified site; Z79.899 Other long term (current) drug therapy; Z59.00 Homelessness unspecified; Z95.1 Presence of aortocoronary bypass graft; Y90.9 Presence of alcohol in blood, level not specified
CPT/HCPCS: 99283

== ENCOUNTER 2024-03-26 18:03 | Emergency (ER) | payer MEDICAID ==
[~2024-03-26] VITALS: Ht 172.7 cm; Wt 73.1 kg
[~2024-03-26 18:03] MED LIST changes: +CHLO25CA10 PO
[2024-03-26 18:05] VITALS: TEMP 98
[2024-03-26] MEDS ORDERED: CETI10TA14 PO ×2 (19:27→19:41)
[2024-03-26] MEDS ORDERED: LISI10TA27 PO ×2 (19:27→19:41)
[2024-03-26] MEDS ORDERED: SPIR25TA5 PO ×2 (19:27→19:41)
[2024-03-26] MEDS ORDERED: THIA50TA10 PO ×2 (19:27→19:41)
[2024-03-26] MEDS ORDERED: EMPA10TA PO ×2 (19:28→19:41)
[2024-03-26] MEDS ORDERED: METO-395 PO ×2 (19:28→19:41)
[2024-03-26] MEDS ORDERED: APIX5TAB3 PO ×2 (19:29→19:41)
[2024-03-26] MEDS: metoprolol tartrate 50mg tablet PO ONE (20:27)
[2024-03-26] MEDS: thiamine 100mg tablet PO ONE (20:28)
[2024-03-26] MEDS: lisinopril 10 MG tablet PO ONE (20:28)
[2024-03-26] MEDS: apixaban 5mg tablet PO ONE (20:28)
[2024-03-26 20:34] VITALS: BP 115/73; PULSE 80; RESP 16; O2SAT 97
== END 2024-03-26 20:36 | disposition home or self-care (01) ==
LOC: ER 18:04
DX: I10 Essential (primary) hypertension (principal); I25.10 Atherosclerotic heart disease of native coronary artery without angina pectoris; I25.2 Old myocardial infarction; J44.9 Chronic obstructive pulmonary disease, unspecified; M19.90 Unspecified osteoarthritis, unspecified site; E78.00 Pure hypercholesterolemia, unspecified; Z95.1 Presence of aortocoronary bypass graft; Z59.00 Homelessness unspecified; Z79.899 Other long term (current) drug therapy; Z72.89 Other problems related to lifestyle
CPT/HCPCS: 99284

== ENCOUNTER 2024-06-21 15:55 | Emergency (ER) | payer MEDICAID ==
[~2024-06-21] VITALS: Ht 172.7 cm; Wt 72.7 kg
[~2024-06-21 15:55] MED LIST changes: -ATOR20TA66 PO; +CETI10TA14 PO; -CHLO25CA10 PO; +LISI10TA27 PO; -SACU1TAB PO; -SPIR25TA PO; +SPIR25TA5 PO; +THIA50TA10 PO
--- NOTE | 2024-06-21 16:09 | ELECTROCARDIOGRAPH REPORT ---
[facility] Test Date: 2024-06-21 Test Time: 16:07:42 Pat Name: TANNER CORRALES Department: EMERGENCY ROOM Room: Gender: M Escalator Installer: JESSICA : 1960 Requested By: MARIANNE GARCIA Order Number: [id number] Reading MD: Measurements Intervals [place] Rate: 114 P: 83 FL: 149 QRS: 98 QRSD: 90 T: -14 QT: 332 QTc: 458 Interpretive Statements Sinus tachycardia Anterior infarct, old Borderline repol abnormality, diffuse leads Please click the below link to view image of tracing.
--- NOTE | 2024-06-21 16:30 | RADIOLOGY REPORT ---
CHEST RADIOGRAPH Indication: CP Technique: Single frontal view of the chest was obtained Comparison: DI CHEST,SINGLE VIEW on DOS: 02/07/24, DI CHEST,SINGLE VIEW on DOS: 09/12/23, DI CHEST,SING LE VIEW on DOS: 09/10/23, DI CHEST,SINGLE VIEW on DOS: 09/10/23, DI CHEST,SINGLE VIEW on DOS: 08/06/23 FINDINGS: Lines and Tubes: None Lungs: No focal consolidation. There is hyperaeration of the lung with flattening of both hemidiaphra gms suggesting chronic obstructive pulmonary disease. Pleura: No effusion. No pneumothorax. Cardiomediastinal contours: Cardiac silhouette is within the limits of normal. Status post cardiac re vascularization procedure. Bones: No acute osseous abnormality. IMPRESSION: 1. No acute cardiopulmonary disease.
--- NOTE | 2024-06-21 17:05 | Physician Documentation ---
History of Present Illness ~ Chief Complaint: Chest Pain Stated Complaint: MED CLEARANCE Time Seen by MD: 15:58 Primary Medical Doctor: Betzaida Christian HPI 63-year-old male presents to the ED with a request for medical clearance to go to alcohol rehab. However patient states he has been on a binge recently and states his last drink was proximally 1 hour ago. Patient is somnolent and sleeping during this interview and requires occasional stimuli. Tetanus within 5 years?: Yes Medication Reconciliation Allergies: Coded Allergies: No Known Allergies (Unverified , 01/12/24) Scheduled Apixaban (Eliquis), 1 TAB PO Q12H Empagliflozin (Jardiance), 1 TAB PO DAILY Lisinopril (Lisinopril), 1 TAB PO DAILY Metoprolol Succinate (Metoprolol Succinate), 1 TAB PO DAILY Pantoprazole Sodium (PROTONIX tablet), 1 TAB PO DAILY Spironolactone (Spironolactone), 12.5 MG PO DAILY Thiamine HCl (Vitamin B-1), 2 TAB PO DAILY Scheduled PRN Cetirizine HCl (Cetirizine HCl), 1 TAB PO DAILY PRN for itch Past Medical History Past Medical History: Seizures, Coronary Artery Disease, High Cholesterol, Hypertension, Myocardial Infarction, COPD, Pneumonia, Arthritis Past Surgical History: angioplasty, coronary bypass surgery Patient History: Patient reports no known family medical history. Alcohol Use: Occasionally Drug Use: none Lives In: Homeless Review of Systems All Other Systems at this time: Reviewed and Negative ROS As stated above in the HPI, otherwise all systems are reviewed and negative. Physical Exam Vital Signs: Temperature: 98.0, Heart Rate: 118, Respiratory Rate: 16, BP: 140/92, Pulse Oximetry: 97, Weight: 72.730 Oxygen Flow Rate: 0 Physical Exam General: Alert, no apparent distress. Slurred speech Respiratory: Lungs clear, no respiratory distress. Cardiovascular: Regular rate and rhythm, no murmurs. Gastrointestinal: Soft, nontender, nondistended. Bowels sounds present. Neurologic: Oriented x4. Psychiatric: Normal mood and affect. Skin: Normal color, warm and dry. No edema, no ecchymosis. Progress Results/Orders Results/Orders Vital Signs 06/21/24 06/21/24 06/21/24 06/21/24 15:57 16:59 17:20 19:01 Temp 98.0 98.0 Pulse 118 89 89 Resp 16 19 19 20 B/P (MAP) 140/92 141/77 (98) 144/75 (98) Pulse Ox 97 96 99 O2 Flow Rate 0 0 0 06/21/24 06/21/24 06/21/24 06/22/24 20:50 21:00 23:30 02:14 Pulse 90 96 63 Resp 18 18 16 B/P (MAP) 143/78 (99) 158/84 (108) 151/80 Pulse Ox 90 98 98 O2 Flow Rate 0 0 Laboratory Tests Test 06/21/24 17:11 06/21/24 17:41 06/21/24 18:40 06/21/24 19:42 White Blood Count 10.2 Red Blood Count 4.90 Hemoglobin 15.0 Hematocrit 45.5 Mean Corpuscular Volume 93.0 Mean Corpuscular Hemoglobin 30.6 Mean Corpuscular Hemoglobin Concent 32.9 L Red Cell Distribution Width 15.2 H Platelet Count 205 Mean Platelet Volume 7.7 Neutrophils (%) (Auto) 64.0 Lymphocytes (%) (Auto) 24.3 Monocytes (%) (Auto) 9.6 Eosinophils (%) (Auto) 1.3 Basophils (%) (Auto) 0.8 Neutrophils # (Auto) 6.5 Lymphocytes # (Auto) 2.5 Monocytes # (Auto) 1.0 H Eosinophils # (Auto) 0.1 Basophils # (Auto) 0.1 CBC Comment Chemistry Comments Sodium Level 145 Potassium Level 4.2 Chloride Level 106 Carbon Dioxide Level 31.8 Anion Gap 7 L Blood Urea Nitrogen 6 L Creatinine 1.00 Estimated GFR/1.73 m2 75 BUN/Creatinine Ratio 6.0 L Glucose Level 80 Calcium Level 8.1 L Total Bilirubin 0.6 Aspartate Amino Transf (AST/SGOT) 24 Alanine Aminotransferase (ALT/SGPT) 14 Alkaline Phosphatase 134 H Troponin I High Sensitivity 32 33 44 Pro-B-Type Natriuretic Peptide 304 H Total Protein 6.6 Albumin 3.4 Globulin 3.2 Albumin/Globulin Ratio 1.1 Lipase 43 Ethyl Alcohol Level 185 H Troponin I High Sens Percent Delta 33 Troponin I Hi Sens Absolute Change 11 Test 06/22/24 00:57 Urine Specimen Description Voided Urine Color Yellow Urine Clarity Clear Urine pH 7.0 Urine Specific Snyder 1.010 Urine Protein Negative Urine Glucose (UA) Negative Urine Ketones Negative Urine Occult Blood Negative Urine Nitrite Negative Urine Bilirubin Negative Urine Urobilinogen 4.0 H Urine Leukocyte Esterase Negative Urine Culture Indicated Not ind Volume Urine Centrifuged 10 ml Urine Comment Medical Decision Making Findings Going to monitor the patient and order some labs along with the IV fluids. I suspect that once he metabolizes the ETOH and receive IV fluid we will be able to medically clear him for alcohol rehab Differential Dx:Considerations: Intoxication - ETOH, Intoxication - other drug, Sub. Abuse -continuous, Sub. Abuse-intermittent, Skull fracture, Fracture - other bone, Personality disorder, Closed head injury, Cervical spine injury, Abrasion, Confusion, Hematoma, Laceration, Foreign body, Dehydration, Encephalopathy, Hepatitis, Pancreatitis, Thiamine deficiency, Other Departure Disposition: 01 HOME / SELF CARE / HOMELESS Impression: Primary Impression: Alcohol abuse Condition: Stable Discharge Instructions: Alcohol Intoxication Additional Instructions: Patient is medically cleared for detox Referrals: NO PRIMARY CARE PROVIDER (PCP) Prescriptions Pantoprazole Sodium (PROTONIX tablet) 40 Mg Tablet.dr 1 TAB PO DAILY for 30 Days, #30 TAB 0 Refills Prov: AMADOU ALFARO MD 06/22/24 Signature Scribe Signature: No scribe Attestation: The note accurately reflects work and decisions made by me.Amadou Alfaro MD 06/22/24 02:23 FRAN PHELPS NP June 21, 2024 17:05 AMADOU ALFARO MD June 22, 2024 02:23
[2024-06-21] MEDS: normal saline 1000ML IV soln IVB ONE (17:15)
[2024-06-21 17:20] VITALS: TEMP 98
[2024-06-21 17:25] LABS: BASOPHILS # (AUTO) 0.1 X10'3 (0-0.2); BASOPHILS % (AUTO) 0.8 % (0-1); EOSINOPHILS # (AUTO) 0.1 X10'3 (0-0.9); EOSINOPHILS % (AUTO) 1.3 % (0-6); HEMATOCRIT 45.5 % (42.0-52.0); LYMPHOCYTES # (AUTO) 2.5 X10'3 (1.1-4.8); LYMPHOCYTES % (AUTO) 24.3 % (21-51); MEAN CORPUSCULAR HEMOGLOBIN 30.6 PG (27.0-31.0); MEAN CORPUSCULAR HGB CONC 32.9 g/dL (33.0-36.5); MEAN PLATELET VOLUME 7.7 FL (7.4-10.4); MONOCYTES % (AUTO) 9.6 % (2-12); NEUTROPHILS # (AUTO) 6.5 X10'3 (1.8-7.7); PLATELET COUNT 205 X10'3 (140-440); RED CELL DISTRIBUTION WIDTH 15.2 % (11.5-14.5); WHITE BLOOD COUNT 10.2 X10'3 (4.5-11.0)
[2024-06-21 18:01] LABS: ALANINE AMINOTRANSFERASE 14 U/L (12-78); ALBUMIN 3.4 G/DL (3.4-5.0); ALBUMIN/GLOBULIN RATIO 1.1 (1.1-1.5); ALKALINE PHOSPHATASE 134 IU/L (46-116); ANION GAP 7 (8-16); ASPARTATE AMINO TRANSFERASE 24 U/L (10-37); BILIRUBIN,TOTAL 0.6 MG/DL (0.1-1.0); BLOOD UREA NITROGEN 6 MG/DL (7-18); CALCIUM 8.1 MG/DL (8.5-10.1); CHLORIDE 106 MMOL/L (99-107); GLUCOSE 80 MG/DL (70-104); POTASSIUM 4.2 MMOL/L (3.5-5.1); SODIUM 145 MMOL/L (135-145); TOTAL CARBON DIOXIDE 31.8 MMOL/L (24-32); TOTAL PROTEIN 6.6 G/DL (6.4-8.2); eCRCL 72 ML/MIN; eGFR 75 ML/MIN
[2024-06-21 18:08] LABS: LIPASE 43 U/L (16-77); PRO BRAIN NATRIURETIC PEPTIDE 304 PG/ML (0-125)
[2024-06-21 21:56] LABS: ETHANOL 185 MG/DL (<10)
[2024-06-22 01:02] LABS: BILIRUBIN,URINE NEGATIVE (Neg); CLARITY,URINE CLEAR (Clear); COLOR,URINE YELLOW (Yellow); GLUCOSE, URINE NEGATIVE (Neg); KETONES,URINE NEGATIVE (Neg); LEUKOCYTE ESTERASE ,URINE NEGATIVE (Neg); NITRITES, URINE NEGATIVE (Neg); OCCULT BLOOD,URINE NEGATIVE (Neg); PROTEIN,URINE NEGATIVE (Neg)
[2024-06-22 01:07] LABS: UA COLLECTION TYPE VOIDED
[2024-06-22] MEDS ORDERED: PANT-47 PO (02:13)
[2024-06-22 02:14] VITALS: BP 151/80; PULSE 63; RESP 16; O2SAT 98
== END 2024-06-22 02:16 | disposition home or self-care (01) ==
LOC: ER 15:56
DX: F10.10 Alcohol abuse, uncomplicated (principal); E78.00 Pure hypercholesterolemia, unspecified; I10 Essential (primary) hypertension; I25.10 Atherosclerotic heart disease of native coronary artery without angina pectoris; J44.9 Chronic obstructive pulmonary disease, unspecified; M19.90 Unspecified osteoarthritis, unspecified site; Z95.1 Presence of aortocoronary bypass graft; Y90.9 Presence of alcohol in blood, level not specified
CPT/HCPCS: 36415; 71045; 80053; 80320; 81003; 83690; 83880; 84484; 85025; 93005; 96360; 96361; 99285; J7030